=== PATIENT | male | born 1990 | race Caucasian/White ===

== ENCOUNTER 2019-11-11 03:14 | Emergency (ER) | payer MEDICARE, MEDICAID, SELFPAY ==
[2019-11-11 03:22] VITALS: BP 144/95; PULSE 105; RESP 18; TEMP 36.4; O2SAT 97; BMI 33.3
--- NOTE | 2019-11-11 03:27 | USR_ITS ---
PROCEDURE INFORMATION: Exam: US Scrotum Exam date and time: 11/11/2019 3:28 AM Age: 29 years old Clinical indication: Scrotum pain; Patient HX: Woke up with pain. TECHNIQUE: Imaging protocol: Real-time ultrasound of the scrotum and contents with color Doppler and image documentation. COMPARISON: US Testicular [id number] 02/18/2019 1:51 PM FINDINGS: Right testicle: Right testis measures 4.2 x 1.8 x 2.9 cm. Vascular flow is demonstrated within the right testis with color Doppler and duplex waveform sonography. PSV 7.5 cm/s, RI 0.46. Left testicle: The left testis measures 4.4 x 1.8 x 2.8 cm. Vascular flow is demonstrated within the left testis with color Doppler and duplex waveform sonography. PSV 9.6 cm/s RI 0.62. Epididymides: Normal. Scrotum: Tiny amount of anechoic material is seen adjacent to the left testis compatible with a tiny hydrocele. There is mild bilateral scrotal wall thickening seen left more prominent than right. US/US scrotum [id number] IMPRESSION: 1. Mild scrotal wall thickening, left slightly more prominent than right 2. Tiny left hydrocele 3. Otherwise normal bilateral scrotal sonography.
--- NOTE | 2019-11-11 03:27 | CTR_ITS ---
PROCEDURE INFORMATION: Exam: CT Abdomen And Pelvis Without Contrast Exam date and time: 11/11/2019 3:28 AM Age: 29 years old Clinical indication: Abdominal pain; Localized; Left lower quadrant (llq); Additional info: Flank/abdominal pain TECHNIQUE: Imaging protocol: Computed tomography of the abdomen and pelvis without contrast. Radiation optimization: All CT scans at this facility use at least one of these dose optimization techniques: automated exposure control; mA and/or kV adjustment per patient size (includes targeted exams where dose is matched to clinical indication); or iterative reconstruction. COMPARISON: CT abdomen pelvis w con* [id number] 06/30/2017 1:11 AM RADIATION DOSE METRICS: Total DLP: 986.29 mGy-cm FINDINGS: Liver: Normal. No mass. Gallbladder and bile ducts: Normal. No calcified stones. No ductal dilation. Pancreas: Normal. No ductal dilation. Spleen: Normal. No splenomegaly. Adrenals: Normal. No mass. Kidneys and ureters: There is some subtle haziness seen along the serosal margin the left ureter and there is mild prominence of the left ureter seen. There is no evidence for obstructing ureteral calculi. However, there is a 2 mm calcifications seen in the dependent portion the bladder seen on right. This may represent recently passed left ureteral calculus. Stomach and bowel: There are nondilated loops of small bowel present containing fluid and air fluid levels, findings could represent mild ileus. Appendix: The appendix is visualized and is normal in configuration. Intraperitoneal space: Unremarkable. No free air. No significant fluid collection. Vasculature: Unremarkable. No abdominal aortic aneurysm. Lymph nodes: Unremarkable. No enlarged lymph nodes. Bladder: See Kidneys and ureters finding. Reproductive: Unremarkable as visualized. Bones/joints: Unremarkable. No acute fracture. Soft tissues: Unremarkable. CT/CT kidney stone [id number] IMPRESSION: 1. Probable recently passed 2 mm left ureteral calculus now seen within the urinary bladder on the right. 2. Nondilated small bowel loops containing fluid and air fluid levels could represent mild ileus. Radiation Dose CTDIVOL = (mGy): DLP = 986.29 (mGy-cm)
--- NOTE | 2019-11-11 04:03 | ED_ITS ---
HPI - Abdominal Pain General: Chief Complaint: Abdominal Pain Stated Complaint: lower abd pain Time Seen by Provider: 11/11/19 03:24 Source: patient Mode of arrival: ambulatory Limitations: no limitations History of Present Illness: HPI narrative: Virgilio is a 29-year-old male who comes in complaining of left-sided abdominal pain, left flank pain and left testicular pain. Patient states he is never had pain like this before. Pain was abrupt in onset and is described as sharp. Patient states it feels like he needs to urinate but cannot. Patient denies any fevers, chills, nausea, vomiting or back pain. Patient denies having anything similar in the past and he is unaware of anything that makes his symptoms better or worse. He is not tried anything at home for this. Associated Symptoms: Denies chills, coffee ground emesis, constipation, GI cramping, diarrhea, dysuria, fever(s), heartburn, hematochezia, hematuria, hematemesis, melena, nausea, syncope and vomiting Review of Systems Const: Denies: fever(s), chills, body aches, fatigue, malaise or diaphoresis Eyes: Denies: change in vision, blurry vision, blind spots or photophobia ENMT: Denies: throat pain, odynophagia, hoarseness, swelling of lips/tongue, ear or mastoid pain, ear discharge, change in hearing or nasal discharge Card: Denies: chest pain, palpitations, irregular heart rhythm, edema, lightheadedness, syncope, pre-syncope, dyspnea on exertion or orthopnea Resp: Denies: dyspnea, productive cough, non-productive cough, wheezing, hemoptysis or chest congestion GI: Reports: abdominal pain; Denies: nausea, vomiting, hematemesis, coffee ground emesis, heartburn, diarrhea, constipation, GI cramping, hematochezia or melena : Reports: flank pain; Denies: dysuria, urinary frequency, urinary urgency or hematuria Musc: Denies: neck pain, back pain, extremity pain, extremity swelling, joint pain, joint swelling, joint redness, joint warmth or joint stiffness Skin/Breast: Denies: rash, pruritus, erythema, skin tenderness or jaundice Neuro: Denies: headache(s), numbness in extremities, weakness in extremities, sensory changes, lack of coordination, difficulty walking, dizziness, vertigo, confusion or Slurred speech present Deny/Lymph: Denies: easy bruising, easy bleeding, petechiae, purpura or enlarged lymph nodes All/Imm: Denies: urticaria, throat swelling, tongue swelling, facial swelling or acute wheezing PFSH ED PFSH: Medical History No pertinent past medical history Surgical History No history of previous surgery Social History Smoking and tobacco status: current every day smoker Physical Exam Const: COMMON NORMALS: no acute distress, patient oriented x3, no limitations, healthy appearing and well nourished GENERAL APPEARANCE: cooperative, well kempt and well developed HENMT: COMMON NORMALS: normocephalic, atraumatic, hearing grossly normal bilaterally, external ears normal, EAC's normal, Normal external nose present and moist oral mucous membranes HEAD & SCALP: normocephalic and atraumatic NOSE: Normal external nose present and Normal nares present EXTERNAL EAR: Yes external ears normal EXTERNAL AUDITORY CANAL: EAC's normal MOUTH: Normal oral and palatal mucosa present, lip normal and tongue normal Eye: COMMON NORMALS: Equal, round and reactive pupils present, EOMs intact bilaterally, conjunctivae normal and no scleral icterus GENERAL EYE: appearance normal, both eyes and all related structures ALIGNMENT: Yes alignment normal PERIORBITAL: periorbital findings normal EYELID: eyelids normal CONJUNCTIVA: Yes conjunctivae normal SCLERA: sclerae normal PUPIL: Yes Equal, round and reactive pupils present Neck/C-Spine: COMMON NORMALS: full ROM, no lymphadenopathy, supple, no meninge al signs and no JVD GENERAL: Yes normal visual inspection and Yes trachea midline Chest: COMMONS NORMALS: normal inspection of the chest and normal palpation of entire chest wall Resp: COMMON NORMALS: normal respiratory effort, No retractions, No use of accessory muscles and clear to auscultation bilaterally EFFORT & INSPECTION: Yes able to speak in complete sentences and Yes symmetric chest movement AUSCULTATION: clear to auscultation bilaterally, no crackles, no rales, no rhonchi and no wheezes Cardio: COMMON NORMALS: no JVD, regular rate, regular rhythm, S1 normal heart sound present, S2 normal heart sound present, No gallops present (Cardio), No clicks present (Cardio), No murmurs present (Cardio) and No rub (Cardio) RATE: regular rate RHYTHM: regular rhythm HEART SOUNDS: S1 normal heart sound present and S2 normal heart sound present GI: COMMON NORMALS: Soft to palpation and No hepatosplenomegaly present PALPATION: Yes Soft to palpation, Yes Tenderness to palpation present (GI) Details: LLQ, No Guarding due to palpation present (GI), No Rigid due to palpation, Yes No hepatosplenomegaly present, No Hernia present, No Palpable mass present and No Pulsatile mass present : COMMON NORMALS: Yes no CVA tenderness BLADDER/KIDNEY EXAM: Yes no CVA tenderness Back/Pelvis: COMMON NORMALS: no CVA tenderness, thoracic and lumbar spine normal to inspection, no thoracic nor lumbar tenderness and thoraco-lumbar ROM normal Extremity: COMMON NORMALS: normal to inspection, full ROM, capillary refill normal, no joint enlargement, no clubbing, cyanosis or edema and no calf tenderness Neuro: COMMON NORMALS: patient oriented x3, CN's II-XII intact bilaterally, moves all extremities, no focal motor deficits and no sensory deficits noted MENINGEAL SIGNS: Yes no meningeal signs SPEECH: speech normal Psych: COMMON NORMALS: mental status grossly normal, Normal thought process present, cooperative, normal affect, speech normal and activity/motor behavior normal APPEARANCE: Yes well kempt SPEECH: Yes normal speech THOUGHT PROCESS: Normal thought process present Skin: COMMON NORMALS: no rashes or lesions noted, turgor normal, no jaundice, no petechiae and no mottling GENERAL SKIN EXAM: no rashes or lesions noted and turgor normal Course Vital Signs: Vital signs: Vital Signs Temperature 97.6 F 11/11/19 03:22 Pulse Rate 105 H 11/11/19 03:22 Respiratory Rate 16 11/11/19 04:11 Blood Pressure 144/95 11/11/19 03:22 Pulse Oximetry 97 11/11/19 03:22 MDM - Abdominal Pain MDM Narrative: Medical decision making narrative: Mr. Maurice is a 29-year-old male comes in with left-sided flank pain. Ultrasound of his testicles is unremarkable. There is no torsion. The skin thickness seen on ultrasound is not appreciated clinically. His testicle exam was unremarkable. I believe all his pain can be explained by the kidney stone present in the bladder with previous changes to the ureter on the left. The patient is feeling much better at this time and is ready to go home. Differential Diagnosis: Differential diagnosis abdominal pain: Likely abdominal pain, calculus of kidney, diverticulitis, gastroenteritis and small bowel obstruction Lab Data: Attestation: I reviewed the patient's lab results. Labs: Lab Results 11/11/19 11/11/19 11/11/19 Range/Units 03:40 04:10 04:10 WBC 7.8 (4.0-10.0) 10^3/ uL RBC 4.71 (4.1-5.3) 10^6/u L Hgb 14.6 (11.7-16.6) g/dL Hct 44.1 (42.0-52.0) % MCV 93.6 (80-94) fL MCH 31.0 (28.0-34.0) pg MCHC 33.1 (30.0-36.0) g/dL RDW 12.4 (12.1-15.1) % Plt Count 178 (130-400) 10^3/c mm MPV 10.9 H (7.4-10.4) fL Neut % (Auto) 62.4 % Lymph % (Auto) 28.5 % [place] % (Auto) 5.2 % Eos % (Auto) 3.4 % Baso % (Auto) 0.4 % Neut # (Auto) 4.9 (1.8-7.7) 10^3/u L Lymph # (Auto) 2.2 (0.8-4.8) 10^3/u L [place] # (Auto) 0.4 (0.2-0.9) 10^3/u L Eos # (Auto) 0.3 (0.0-0.8) 10^3/u L Baso # (Auto) 0.0 (0.0-0.1) 10^3/u L Nucleated RBC % (a uto) 0 % Nucleated RBCs # 0.0 /100WBC Sodium 142 (136-145) mmol/L Potassium 3.2 L (3.5-5.1) mmol/L Chloride 105 (98-107) mmol/L Carbon Dioxide 26 (22-29) mmol/L Anion Gap 14.2 (5-19) BUN 19 (6-20) mg/dL Creatinine 0.8 (0.7-1.2) mg/dL GFR Calculation 116.0 (90-130) mL/min Glucose 148 H (65-115) mg/dL Calculated Osmolal ity 293 (285-295) mOsm/k g Calcium 8.9 (8.5-10.5) mg/dL Magnesium (1.7-2.3) mg/dL Total Bilirubin 0.4 (0.15-1.2) mg/dL AST 21 (0-40) U/L ALT 36 (0-41) U/L Alkaline Phosphata se 40 (40-130) IU/L Total Protein 6.2 L (6.6-8.7) g/dL Albumin 4.5 (3.5-5.2) g/dL Globulin 1.7 (1.3-4.6) g/dL Lipase 22 (13-60) U/L Urine Color Yellow (Yellow) Urine Appearance Clear (CLEAR) Urine pH 6 (5-7) Ur Specific Gravit y 1.020 (1.005-1.030) Urine Protein Neg (Negative) Urine Glucose (UA) Norm (Normal) Urine Ketones Negative (Negative) Urine Blood 2+ H (Negative) Urine Nitrate Negative (Negative) Urine Bilirubin Neg (NEGATIVE) Urine Urobilinogen Norm (Negative) mg/dL Ur Leukocyte Julisa ase Negative (Negative) Urine RBC 5-10 H (0-2) /hpf Urine WBC 0-4 H (0-5) /hpf Ur Squamous Epith Cells Rare (0-5) Urine Bacteria Trace (NONE) Urine Mucus Trace 11/11/19 Range/Units 04:10 WBC (4.0-10.0) 10^3/ uL RBC (4.1-5.3) 10^6/u L Hgb (11.7-16.6) g/dL Hct (42.0-52.0) % MCV (80-94) fL MCH (28.0-34.0) pg MCHC (30.0-36.0) g/dL RDW (12.1-15.1) % Plt Count (130-400) 10^3/c mm MPV (7.4-10.4) fL Neut % (Auto) % Lymph % (Auto) % [place] % (Auto) % Eos % (Auto) % Baso % (Auto) % Neut # (Auto) (1.8-7.7) 10^3/u L Lymph # (Auto) (0.8-4.8) 10^3/u L [place] # (Auto) (0.2-0.9) 10^3/u L Eos # (Auto) (0.0-0.8) 10^3/u L Baso # (Auto) (0.0-0.1) 10^3/u L Nucleated RBC % (a uto) % Nucleated RBCs # /100WBC Sodium (136-145) mmol/L Potassium (3.5-5.1) mmol/L Chloride (98-107) mmol/L Carbon Dioxide (22-29) mmol/L Anion Gap (5-19) BUN (6-20) mg/dL Creatinine (0.7-1.2) mg/dL GFR Calculation (90-130) mL/min Glucose (65-115) mg/dL Calculated Osmolal ity (285-295) mOsm/k g Calcium (8.5-10.5) mg/dL Magnesium 2.1 (1.7-2.3) mg/dL Total Bilirubin (0.15-1.2) mg/dL AST (0-40) U/L ALT (0-41) U/L Alkaline Phosphata se (40-130) IU/L Total Protein (6.6-8.7) g/dL Albumin (3.5-5.2) g/dL Globulin (1.3-4.6) g/dL Lipase (13-60) U/L Urine Color (Yellow) Urine Appearance (CLEAR) Urine pH (5-7) Ur Specific Gravit y (1.005-1.030) Urine Protein (Negative) Urine Glucose (UA) (Normal) Urine Ketones (Negative) Urine Blood (Negative) Urine Nitrate (Negative) Urine Bilirubin (NEGATIVE) Urine Urobilinogen (Negative) mg/dL Ur Leukocyte Julisa ase (Negative) Urine RBC (0-2) /hpf Urine WBC (0-5) /hpf Ur Squamous Epith Cells (0-5) Urine Bacteria (NONE) Urine Mucus Imaging Data ^: CT Abd/Pel: Radiologist's impression: [place] [address] [address] [address] Scan Report Signed Patient: Virgilio Maurice Unit #: [id number] : 1990 Age/Sex: 29 / M ADM Date: 11/11/19 Loc: ER Room/Bed: Attending Dr: Ordering Provider/Ordering MD: Destiney Rg DO Date of Service: 11/11/19 Procedure(s): CT kidney stone [id number] Accession Number(s): [id number] Report Number: [id number] PROCEDURE INFORMATION: Exam: CT Abdomen And Pelvis Without Contrast Exam date and time: 11/11/2019 3:28 AM Age: 29 years old Clinical indication: Abdominal pain; Localized; Left lower quadrant (llq); Additional info: Flank/abdominal pain TECHNIQUE: Imaging protocol: Computed tomography of the abdomen and pelvis without contrast. Radiation optimization: All CT scans at this facility use at least one of these dose optimization techniques: automated exposure control; mA and/or kV adjustment per patient size (includes targeted exams where dose is matched to clinical indication); or iterative reconstruction. COMPARISON: CT abdomen pelvis w con* [id number] 06/30/2017 1:11 AM RADIATION DOSE METRICS: Total DLP: 986.29 mGy-cm FINDINGS: Liver: Normal. No mass. Gallbladder and bile ducts: Normal. No calcified stones. No ductal dilation. Pancreas: Normal. No ductal dilation. Spleen: Normal. No splenomegaly. Adrenals: Normal. No mass. Kidneys and ureters: There is some subtle haziness seen along the serosal margin the left ureter and there is mild prominence of the left ureter seen. There is no evidence for obstructing ureteral calculi. However, there is a 2 mm calcifications seen in the dependent portion the bladder seen on right. This may represent recently passed left ureteral calculus. Stomach and bowel: There are nondilated loops of small bowel present containing fluid and air fluid levels, findings could represent mild ileus. Appendix: The appendix is visualized and is normal in configuration. Intraperitoneal space: Unremarkable. No free air. No significant fluid collection. Vasculature: Unremarkable. No abdominal aortic aneurysm. Lymph nodes: Unremarkable. No enlarged lymph nodes. Bladder: See Kidneys and ureters finding. Reproductive: Unremarkable as visualized. Bones/joints: Unremarkable. No acute fracture. Soft tissues: Unremarkable. CT/CT kidney stone [id number] IMPRESSION: 1. Probable recently passed 2 mm left ureteral calculus now seen within the urinary bladder on the right. 2. Nondilated small bowel loops containing fluid and air fluid levels could represent mild ileus. Radiation Dose CTDIVOL = (mGy): DLP = 986.29 (mGy-cm) Dictated By: Chandana Capellan MD Signed By: Chandana Capellan MD Signed Date/Time: 11/11/19425 DD/ 4 Ultrasound Testicles: Radiologist's impression: [address] [address] Ultrasound Report Signed Patient: Virgilio Maurice Unit #: [id number] : 1990 Age/Sex: 29 / M ADM Date: 11/11/19 Loc: ER Room/Bed: Attending Dr: Ordering Provider/Ordering MD: Destiney Rg DO Date of Service: 11/11/19 Procedure(s): US scrotum [id number] Accession Number(s): [id number] Report Number: [id number] PROCEDURE INFORMATION: Exam: US Scrotum Exam date and time: 11/11/2019 3:28 AM Age: 29 years old Clinical indication: Scrotum pain; Patient HX: Woke up with pain. TECHNIQUE: Imaging protocol: Real-time ultrasound of the scrotum and contents with color Doppler and image documentation. COMPARISON: US Testicular [id number] 02/18/2019 1:51 PM FINDINGS: Right testicle: Right testis measures 4.2 x 1.8 x 2.9 cm. Vascular flow is demonstrated within the right testis with color Doppler and duplex waveform sonography. PSV 7.5 cm/s, RI 0.46. Left testicle: The left testis measures 4.4 x 1.8 x 2.8 cm. Vascular flow is demonstrated within the left testis with color Doppler and duplex waveform sonography. PSV 9.6 cm/s RI 0.62. Epididymides: Normal. Scrotum: Tiny amount of anechoic material is seen adjacent to the left testis compatible with a tiny hydrocele. There is mild bilateral scrotal wall thickening seen left more prominent than right. US/US scrotum [id number] IMPRESSION: 1. Mild scrotal wall thickening, left slightly more prominent than right 2. Tiny left hydrocele 3. Otherwise normal bilateral scrotal sonography. Dictated By: Chandana Capellan MD Signed By: Chandana Capellan MD Signed Date/Time: 11/11/19421 DD/ 1 Discharge Plan Discharge Patient Disposition: Home, Self-Care Clinical Impression: Left ureteral stone Condition: Stable Discharge Orders: Discharge Order (Routine); Ordered 11/11/19 Ordered By: Destiney Rg Referrals: Rocael Muller MD [Physician] - 1-3 days Discharge Diet: Advance as tolerated Discharge Activity: Increase activity as tolerated Patient Instructions: Kidney Stones (ED), How to Strain Your Urine (ED) Activity Restrictions/Additional Instructions: Please return to the ER immediately for any of the signs or symptoms listed on your discharge instruction sheets, worsening/changing of your symptoms, you are not getting better as quickly as expected, or for ANY other cause or concerns. Coding Level of Care Code ED Inspector [employer] for [employer]g Fwd Exam Comprehensive
[2019-11-11 04:11] VITALS: RESP 16
[2019-11-11] MEDS: morphine 4 mg/mL SDV 1 mL IVP (04:11)
[2019-11-11] MEDS: ondansetron 2 mg/ML SDV 2 mL 4 MG IVP (04:12)
[2019-11-11 04:15] LABS: Basophils % 0.4 %; Eosinophils # 0.3 10^3/uL (0.0-0.8); Eosinophils % 3.4 %; Hematocrit 44.1 % (42.0-52.0); Hemoglobin 14.6 g/dL (11.7-16.6); Lymphocytes # 2.2 10^3/uL (0.8-4.8); Lymphocytes % 28.5 %; Mean Corpuscular HGB Conc 33.1 g/dL (30.0-36.0); Mean Corpuscular Volume 93.6 fL (80-94); Mean Platelet Volume 10.9 fL (7.4-10.4); Monocytes # 0.4 10^3/uL (0.2-0.9); Monocytes % 5.2 %; Neutrophils # 4.9 10^3/uL (1.8-7.7); Neutrophils % 62.4 %; Nucleated Red Blood Cells % 0 %; Platelet Count 178 10^3/cmm (130-400); Red Blood Count 4.71 10^6/uL (4.1-5.3); Red Cell Distribution Width 12.4 % (12.1-15.1); White Blood Count 7.8 10^3/uL (4.0-10.0)
[2019-11-11 04:30] LABS: Alanine Aminotransferase 36 U/L (0-41); Albumin Level 4.5 g/dL (3.5-5.2); Alkaline Phosphatase 40 IU/L (40-130); Anion Gap 14.2 (5-19); Aspartate Amino Transferase 21 U/L (0-40); Blood Urea Nitrogen 19 mg/dL (6-20); Calcium 8.9 mg/dL (8.5-10.5); Carbon Dioxide 26 mmol/L (22-29); Chloride 105 mmol/L (98-107); Globulin 1.7 g/dL (1.3-4.6); Glucose 148 mg/dL (65-115); Lipase 22 U/L (13-60); Osmolality Calculated 293 mOsm/kg (285-295); Potassium 3.2 mmol/L (3.5-5.1); Sodium 142 mmol/L (136-145); Total Bilirubin 0.4 mg/dL (0.15-1.2); Total Protein 6.2 g/dL (6.6-8.7)
[2019-11-11 04:51] LABS: Protein Urine Neg (Negative); Urine Appearance Clear (CLEAR); Urine Color Yellow (Yellow); pH Urine 6 (5-7)
[2019-11-11 04:52] LABS: Bacteria Urine TRACE; Bilirubin Urine Neg (NEGATIVE); Blood Urine 2+ (Negative); Glucose Urine UA Norm (Normal); Ketones Urine Negative (Negative); Leukocyte Esterase Urine Negative (Negative); Mucus Urine TRACE; Nitrate Urine Negative (Negative); Squamous Epithelial Cell Urine RARE (0-5); Urobilinogen Urine Norm (Negative); WBC Urine 0-4 /hpf (0-5)
[2019-11-11 04:53] LABS: Add Urine Culture? No
[2019-11-11] MEDS: ketorolac 30 mg/mL INJ 10 MG IVP (04:53)
[2019-11-11] MEDS: lactated ringers 1,000 ML 150 ML IV (04:56)
[2019-11-11 05:01] LABS: Magnesium 2.1 mg/dL (1.7-2.3)
[2019-11-11 05:22] VITALS: RESP 16
--- NOTE | 2019-11-14 10:56 | DCPLANNER ---
marketing strategy manager had message to schedule a follow up appointment for patient with Dr. Muller. marketing strategy manager called the office of Dr. Muller, spoke with Fanta. marketing strategy manager was told that patients information would be printed and reviewed.
--- NOTE | 2019-11-15 08:38 | DCPLANNER ---
Patient had an appointment scheduled for 11.12.[address] Muller, patient did attend the appointment.
== END 2019-11-11 05:22 | disposition home or self-care (01) ==
PROVIDERS: Emergency Provider Emergency Medicine
DX: N20.1 Calculus of ureter (principal); F17.210 Nicotine dependence, cigarettes, uncomplicated
CPT/HCPCS: 12345; 74176; 76870; 80053; 81001; 83690; 83735; 85025; 96365; 96366; 96375; 99282; 99284; A9270; J1885; J2270; J2405

== ENCOUNTER 2019-11-12 12:03 | Outpatient (CLI) | payer MEDICARE, MEDICAID, SELFPAY ==
--- NOTE | 2019-11-12 12:30 | XR_ITS ---
WS: [id number] XR KUB [id number] REASON FOR EXAM: URETERAL STONE FINDINGS: Considerable fecal stasis is noted throughout the colon. [place] both kidneys show essential ly normal appearance a definite stone is not identified. The region of the ureters and bladder show no evidence to suggest stone. XR/XR KUB 56108 IMPRESSION: Fecal stasis.
== END 2019-11-12 12:04 | disposition home or self-care (01) ==
PROVIDERS: Visit Provider Nurse Practitioner Family
DX: N20.1 Calculus of ureter (principal); K56.41 Fecal impaction
CPT/HCPCS: 74018; 81001

== ENCOUNTER 2020-01-25 19:40 | Emergency (ER) | payer MEDICARE, MEDICAID, SELFPAY ==
[2020-01-25 20:02] VITALS: BP 139/96; PULSE 102; RESP 20; TEMP 36.8; O2SAT 98; BMI 23.3
--- NOTE | 2020-01-25 20:19 | PC.NURSE ---
Patient taken straight to decon room for decontamination treatment, once completed patient was placed in gown and taken to room for examination.
[2020-01-25 20:20] VITALS: RESP 18
[2020-01-25] MEDS: ondansetron 2 mg/ML SDV 2 mL 4 MG IVP (20:30)
[2020-01-25] MEDS: ketorolac 30 mg/mL INJ IVP (20:35)
[2020-01-25 20:40] VITALS: RESP 22; O2SAT 97
[2020-01-25] MEDS: morphine 4 mg/mL SDV 1 mL IVP (20:40)
[2020-01-25] MEDS: bacitracin ointment Pkt 1 EACH TOPICAL ×2 (20:44→20:55)
[2020-01-25 21:20] VITALS: BP 120/70; PULSE 88; RESP 18; O2SAT 98
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
[2020-01-25 21:39] VITALS: BP 120/70; PULSE 88; RESP 18; O2SAT 98
== END 2020-01-25 21:40 | disposition home or self-care (01) ==
PROVIDERS: Emergency Provider Family Medicine
DX: T21.20XA Burn of second degree of trunk, unspecified site, initial encounter (principal); X16.XXXA Contact with hot heating appliances, radiators and pipes, initial encounter; F17.210 Nicotine dependence, cigarettes, uncomplicated
CPT/HCPCS: 12345; 96374; 96375; 99282; 99283; J1885; J2270; J2405

== ENCOUNTER 2020-02-19 07:42 | Emergency (ER) | payer MEDICARE, MEDICAID, SELFPAY ==
[2020-02-19 07:45] VITALS: BP 116/83; PULSE 83; RESP 17; TEMP 36.9; O2SAT 99; BMI 21.6
--- NOTE | 2020-02-19 08:23 | ED_ITS ---
HPI - Skin/Abscess/Foreign Bdy General: Chief complaint: Skin/Abscess/Foreign Body Stated complaint: bite on r leg Time Seen by Provider: 02/19/20 07:45 History of Present Illness: HPI narrative: 30-year-old male presents to the emergency department with complaints of possible insect bite/spider bite to the right posterior thigh x4 days. He reports worsening symptoms, pain with ambulation. Denies fever chills. complaint: abscess/boil Onset (ago): day(s) (3-4) Tetanus up to date: yes Location: [facility] Severity: moderate Severity scale (1-10): 5 Quality: burning, aching and dull Pain Consistency: intermittent Relieving factors: rest Exacerbating factors: movement Context: none Associated symptoms: Reports no associated symptoms; Deny chills, fever(s), nausea or vomiting Treatments prior to arrival: none Review of Systems General: Reports: 10 or more systems reviewed and unremarkable except in HPI and below Const: Denies: fever(s), chills or diaphoresis Eyes: Denies: blurry vision or eye redness ENMT: Denies: throat pain, dental pain or disequilibrium Card: Denies: chest pain, palpitations or irregular heart rhythm Resp: Denies: dyspnea, productive cough, non-productive cough or wheezing GI: Denies: abdominal pain, nausea or vomiting : Denies: dysuria Musc: Reports: extremity pain (Right posterior thigh); Denies: back pain, muscle cramps or muscle weakness Skin/Breast: Reports: erythema (Right thigh), skin pain, skin tenderness (Right thigh) and changes in skin color (Wound to the right thigh); Denies: rash or pruritus Neuro: Denies: headache(s), weakness in extremities or behavioral changes Psych: Denies: anxiety or depression Deny/Lymph: Denies: easy bruising PFSH ED PFSH: Medical History (Updated 02/19/20 @ 08:23 by ARMEN Stacy) No pertinent past medical history Surgical History No history of previous surgery Family History Family/Other Cancer stomach Social History Smoking and tobacco status: current every day smoker Alcohol intake: current Alcohol intake frequency: few times a week Marital status: Life Partner Current occupational status: unemployed History of recent travel: No Physical Exam Const: COMMON NORMALS: no acute distress, patient oriented x3, healthy appearing and alert GENERAL APPEARANCE: cooperative and well hydrated HENMT: COMMON NORMALS: normocephalic, Normal external nose present and moist oral mucous membranes HEAD & SCALP: normocephalic NOSE: Normal external nose present Eye: COMMON NORMALS: Equal, round and reactive pupils present and EOMs intact bilaterally GENERAL EYE: appearance normal, both eyes and all related structures PUPIL: Yes Equal, round and reactive pupils present Neck/C-Spine: COMMON NORMALS: full ROM and no lymphadenopathy GENERAL: Yes normal visual inspection and Yes trachea midline CERVICAL SPINE: Yes cervical ROM normal Lymph: LYMPHATIC: no lymphadenopathy noted Chest: COMMONS NORMALS: normal inspection of the chest Resp: COMMON NORMALS: normal respiratory effort and clear to auscultation bilaterally AUSCULTATION: clear to auscultation bilaterally Cardio: COMMON NORMALS: regular rhythm, S1 normal heart sound present, S2 normal heart sound present and Peripheral pulses 2+ throughout RHYTHM: regular rhythm HEART SOUNDS: S1 normal heart sound present and S2 normal heart sound present PERIPHERAL PULSES: Peripheral pulses 2+ throughout GI: COMMON NORMALS: Soft to palpation and non-tender INSPECTION: Yes normal to inspection PALPATION: Yes Soft to palpation : COMMON NORMALS: Yes no CVA tenderness BLADDER/KIDNEY EXAM: Yes no CVA t enderness Back/Pelvis: COMMON NORMALS: no CVA tenderness and thoracic and lumbar spine normal to inspection Extremity: COMMON NORMALS: normal to inspection and capillary refill normal GENERAL: Yes normal exam except as noted RIGHT LOWER EXTREMITY: Yes upper leg (Abscess right posterior thigh tenderness localized to the area) EXTREMITY IMAGE (BACK): 1. 2 cm x 2 cm indurated erythematous area, fluctuant, 4 cm x 4 cm area of erythema surrounding, flat, tender to the touch, abscess Neuro: COMMON NORMALS: patient oriented x3 and no focal motor deficits SENSORIUM/ORIENTATION: Yes alert Psych: COMMON NORMALS: mental status grossly normal, Normal thought process present and cooperative ACTIVITY/MOTOR BEHAVIOR: Yes appropriate eye contact THOUGHT PROCESS: Normal thought process present Skin: COMMON NORMALS: no rashes or lesions noted and turgor normal GENERAL SKIN EXAM: no rashes or lesions noted and turgor normal Procedures Abscess I/D Site: lower extremity (Right posterior thigh -Betadine scrub as prep) Side (if applicable): right Local Anesthetic: lidocaine 1% and with epi Amount of anesthesia used (mL): 7 Technique: incised with #11 blade (moderate amount of purulent exudate expressed from the area) Irrigation: Yes Packing used?: none Complications: pain Course ED course: 30-year-old male patient presents to the emergency department with abscess of the right posterior thigh, incision and drainage of the area completed with expression of purulent drainage. Presume MRSA infection. Abscess culture and sensitivity with Gram stain obtained and pending. Patient was advised no [place] water, bath water or river water until area has completely healed. Drainage encouraged from the area, advised to keep covered with Band- Aid until healed. His request work note. Patient offer 2 days, advised to keep leg elevated with compresses as needed for pain. Vital Signs: Vital signs: Vital Signs Temperature 98.4 F 02/19/20 07:45 Pulse Rate 83 02/19/20 07:45 Respiratory Rate 17 02/19/20 07:45 Blood Pressure 116/83 02/19/20 07:45 Pulse Oximetry 99 02/19/20 07:45 Discharge Plan Discharge Patient Disposition: Home Clinical Impression: MRSA cellulitis Abscess of skin or subcutaneous tissue Qualifiers: Site of cutaneous abscess: extremity Site of cutaneous abscess of extremity: lower extremity Laterality: right Qualified Code(s): L02.415 - Cutaneous abscess of right lower limb Condition: Stable Prescriptions: New Bactrim DS 800-160 mg tablet 1 tab PO BID 7 Days Qty: 14 RF: 0 ibuprofen 800 mg tablet 800 mg PO TID PRN (Reason: pain) Qty: 20 RF: 0 Discontinued naproxen sodium [Aleve] 220 mg Tablet 220 mg PO BID PRN (Reason: Pain) RF: 0 bacitracin 500 unit/gram ointment 1 applic TOPICAL DAILY Qty: 30 RF: 0 No Action [place] 5-325 mg tablet 1 tab PO Q6H PRN (Reason: pain) Qty: 20 RF: 0 Discharge Orders: Discharge Order (Routine); Ordered 02/19/20 Ordered By: Cassy Soliman Discharge Diet: Usual diet Discharge Activity: Resume usual activity Patient Instructions: Methicillin Resistant Staphylococcus Aureus (ED), Abscess Incision and Drainage (ED) Activity Restrictions/Additional Instructions: Apply cool compresses as needed to the affected area to help with pain Take antibiotics until all gone, take medication with meals to avoid stomach upset Do not take any [id number] medication with exception of Tylenol as needed for pain while taking ibuprofen Increase fluids Follow-up with your doctor in 3 to 4 days if no improvement If worsening symptoms such as fever chills nausea vomiting or streaking occurs to the leg, return to the emergency department Stand Alone Forms: Work/School Release Coding Level of Care Code ED Mysql Database Administrator for Bj Anna
[2020-02-19 08:35] VITALS: BP 111/72; PULSE 88; RESP 18; TEMP 37.2; O2SAT 97
== END 2020-02-19 08:40 | disposition home or self-care (01) ==
PROVIDERS: Emergency Provider Nurse Practitioner Family
DX: L02.415 Cutaneous abscess of right lower limb (principal); B95.62 Methicillin resistant Staphylococcus aureus infection as the cause of diseases classified elsewhere; L03.115 Cellulitis of right lower limb
CPT/HCPCS: 10060; 12345; 87070; 87075; 87077; 87186; 87205; 99282; 99283

== ENCOUNTER 2020-07-03 23:35 | Emergency (ER) | payer MEDICARE, MEDICAID, SELFPAY ==
[2020-07-03 23:54] VITALS: BP 107/72; PULSE 86; RESP 16; TEMP 36.8; O2SAT 97; BMI 23.3
[2020-07-03 23:59] VITALS: O2SAT 97
--- NOTE | 2020-07-04 00:05 | W.ED.COVID ---
HPI - COVID General: Chief Complaint: COVID symptoms Stated Complaint: covid symptoms/cough Time Seen by Provider: 07/03/20 23:39 Source: patient Mode of arrival: ambulatory Limitations: no limitations Triage information: Has fever, cough or shortness of breath. Exposure to COVID + person last 14 days History of Present Illness: HPI Narrative: 30-year-old male patient presents to the emergency department [facility] with 5-day onset of cough congestion. He reports is exposed to a positive Covid customer last week, 5 to 7 days prior to onset of symptoms. He reports coughing up clear sputum. He denies chest pain, shortness of breath. He reports has not taken anything for the cough. He denies fever. He reports continued cough. MD complaint: reported COVID exposure Prior covid testing: no COVID 19 common symptoms: positive chills, cough, productive cough (clear), fatigue, headache(s), throat pain and nasal congestion; negative fever(s), dyspnea, body aches, nausea, vomiting or diarrhea COVID 19 other sytmptoms: negative chest pain or confusion Onset (ago): day(s) (5) Severity: mild Treatment prior to arrival: none COVID Results: Nasal/Oral Coronavirus 2019 PCR Pending 07/04/20 00:20 07/04/20 Review of Systems General: Reports: 10 or more systems reviewed and unremarkable except in HPI and below Const: Reports: chills, fatigue and malaise; Denies: fever(s), body aches, change in appetite, night sweats or diaphoresis Eyes: Denies: change in vision, blurry vision, eye discomfort or eye redness ENMT: Reports: throat pain, nasal discharge and nasal congestion; Denies: mouth pain, halitosis, ear or mastoid pain or post nasal drip Card: Denies: chest pain, palpitations, irregular heart rhythm, swelling of feet/ankles, lightheadedness, pre-syncope, dyspnea on exertion or orthopnea Resp: Reports: productive cough (clear) and chest congestion; Denies: dyspnea, wheezing or hemoptysis GI: Denies: abdominal pain, nausea, vomiting, hematemesis, diarrhea or constipation : Denies: dysuria Musc: Denies: neck pain, back pain, extremity pain, muscle cramps or muscle weakness Skin/Breast: Denies: rash or pruritus Neuro: Reports: headache(s); Denies: numbness in extremities, sensory changes, difficulty walking, frequent falls, vertigo or confusion Psych: Denies: anxiety, depression or hopelessness Deny/Lymph: Denies: easy bruising PFSH ED PFSH: Medical History (Updated 07/04/20 @ 00:10 by ARMEN Stacy) No pertinent past medical history Surgical History No history of previous surgery Family History Family/Other Cancer stomach Social History Smoking and tobacco status: current every day smoker Alcohol intake: current Alcohol intake frequency: few times a week Marital status: Life Partner Current occupational status: unemployed History of recent travel: No Physical Exam Const: COMMON NORMALS: no acute distress, patient oriented x3, healthy appearing and alert GENERAL APPEARANCE: cooperative, comfortable and well hydrated HENMT: COMMON NORMALS: normocephalic, Normal external nose present and moist oral mucous membranes HEAD & SCALP: normocephalic NOSE: Normal external nose present Eye: COMMON NORMALS: Equal, round and reactive pupils present and EOMs intact bilaterally GENERAL EYE: appearance normal, both eyes and all related structures PUPIL: Yes Equal, round and reactive pupils present Neck/C-Spine: COMMON NORMALS: full ROM and no lymphadenopathy GENERAL: Yes normal visual inspection and Yes trachea midline CERVICAL SPINE: Yes cervical ROM normal Lymph: LYMPHATIC: no lymphadenopathy noted Chest: COMMONS NORMALS: normal inspection of the chest and normal palpation of entire chest wall CHEST: No localized rib tenderness with anteroposterior compression Resp: COMMON NORMALS: normal respiratory effort, No retractions, No use of accessory muscles and clear to auscultation bilaterally EFFORT & INSPECTION: Yes able to speak in complete sentences, No abnormal respiratory pattern, No respiratory distress, No labored and Yes Actively coughing non-productive and dry AUSCULTATION: clear to auscultation bilaterally Cardio: COMMON NORMALS: regular rate, regular rhythm, S1 normal heart sound present, S2 normal heart sound present and Peripheral pulses 2+ throughout RATE: regular rate RHYTHM: regular rhythm HEART SOUNDS: S1 normal heart sound present and S2 normal heart sound present PERIPHERAL PULSES: Peripheral pulses 2+ throughout GI: COMMON NORMALS: Normal to inspection, nondistended, normoactive bowel sounds present, Soft to palpation and non-tender INSPECTION: Yes normal to inspection PALPATION: Yes Soft to palpation : COMMON NORMALS: Yes no CVA tenderness BLADDER/KIDNEY EXAM: Yes no CVA tenderness Back/Pelvis: COMMON NORMALS: no CVA tenderness and thoracic and lumbar spine normal to inspection Extremity: COMMON NORMALS: normal to inspection and capillary refill normal Neuro: COMMON NORMALS: patient oriented x3 and no focal motor deficits SENSORIUM/ORIENTATION: Yes alert Psych: COMMON NORMALS: mental status grossly normal, Normal thought process present and cooperative ACTIVITY/MOTOR BEHAVIOR: Yes appropriate eye contact THOUGHT PROCESS: Normal thought process present Skin: COMMON NORMALS: no rashes or lesions noted and turgor normal GENERAL SKIN EXAM: no rashes or lesions noted and turgor normal Course Vital Signs: Vital signs: Vital Signs Temperature 98.2 F 07/03/20 23:54 Pulse Rate 86 07/03/20 23:54 Respiratory Rate 16 07/04/20 00:33 Blood Pressure 107/72 07/03/20 23:54 Pulse Oximetry 97 07/03/20 23:59 MDM - COVID COVID Results: Nasal/Oral Coronavirus 2019 PCR Pending 07/04/20 00:20 07/04/20 Discharge Plan Discharge Patient Disposition: Home Clinical Impression: Suspected severe acute respiratory syndrome coronavirus 2 (SARS-CoV-2) infection, Bronchitis, Suspected 2019 novel coronavirus infection Condition: Stable Prescriptions: New azithromycin 250 mg tablet 250 mg PO DAILY 4 Days Qty: 4 RF: 0 benzonatate 200 mg capsule 200 mg PO TID PRN (Reason: cough) Qty: 20 RF: 0 Decadron 6 mg tablet 6 mg PO DAILY Qty: 7 RF: 0 No Action ibuprofen 800 mg tablet 800 mg PO TID PRN (Reason: pain) Qty: 20 RF: 0 [place] 5-325 mg tablet 1 tab PO Q6H PRN (Reason: pain) Qty: 20 RF: 0 Discharge Orders: Discharge ED (Routine); Ordered 07/04/20 Ordered By: Cassy Soliman Discharge Diet: Usual diet Discharge Activity: Limit activity as instructed Patient Instructions: Acute Bronchitis (ED), Viral Syndrome (ED), Acute Cough (ED) Activity Restrictions/Additional Instructions: Take medication as prescribed until all gone, dexamethasone and azithromycin May take Tylenol/ibuprofen as needed for pain/fever Return to the emergency department if you develop chest pain, inability to catch her breath or other concerning symptoms You will need to rest at home, drink lots of fluids to avoid dehydration; you will need to remain in quarantine until results of COVID-19 are known; if positive you will need to continue quarantine; the [facility] will contact you with further instructions Coding Level of Care Code ED Software Quality Test Engineer for Bj Fwisabel Exam Comprehensive
[2020-07-04] MEDS: azithromycin 250 mg Tablet 500 MG PO (00:24)
[2020-07-04] MEDS: benzonatate 100 mg Capsule 200 MG PO (00:24)
[2020-07-04] MEDS: dexamethasone 4 mg Tablet 6 MG PO (00:31)
[2020-07-04 00:33] VITALS: RESP 16
[2020-07-04 14:26] LABS: Coronavirus Test Green County DETECTED
--- NOTE | 2020-07-04 17:17 | PC.NURSE ---
Patient notified of COVID results at this time.
--- NOTE | 2020-07-05 08:33 | PC.NURSE ---
PT WAS CALLED AND GIVEN THE RESULTS OF HIS COVID TEST
== END 2020-07-04 00:33 | disposition home or self-care (01) ==
PROVIDERS: Emergency Provider Nurse Practitioner Family
DX: U07.1 COVID-19 (principal); J40 Bronchitis, not specified as acute or chronic; F17.210 Nicotine dependence, cigarettes, uncomplicated
CPT/HCPCS: 12345; 87635; 99281; 99283; J8540; Q0144

== ENCOUNTER 2020-09-06 21:20 | Emergency (ER) | payer MEDICARE, MEDICAID, SELFPAY ==
[2020-09-06 21:32] VITALS: BP 111/76; PULSE 97; RESP 18; TEMP 37.1; O2SAT 95; BMI 28.3
--- NOTE | 2020-09-06 21:44 | CTR_ITS ---
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 Radiation optimization: All CT scans at this facility use at least one of these dose optimization techniques: automated exposure control; mA and/or kV adjustment per patient size (includes targeted exams where dose is matched to clinical indication); or iterative reconstruction. Contrast material: OMNI 300; Contrast volume: 95 ml; Contrast route: INTRAVENOUS (IV); COMPARISON: CT kidney stone [id number] 11/11/2019 4:04 AM RADIATION DOSE METRICS: Total DLP (mGy-cm): 1216.12 FINDINGS: Lungs: The lung bases are clear. No effusion Liver: Normal. No mass. Gallbladder and bile ducts: No wall thickening, pericholecystic fluid or stones. Pancreas: Normal. No ductal dilation. Spleen: Normal. No splenomegaly. Adrenal glands: Normal. No mass. Kidneys and ureters: Normal. No hydronephrosis. Stomach and bowel: Diverticulosis without diverticulitis. Appendix: No evidence of appendicitis. Intraperitoneal space: Unremarkable. No free air. No significant fluid collection. Vasculature: Unremarkable. No abdominal aortic aneurysm. Lymph nodes: Unremarkable. No enlarged lymph nodes. Urinary bladder: Unremarkable as visualized. Reproductive: Unremarkable as visualized. Bones/joints: Unremarkable. No acute fracture. Soft tissues: Unremarkable. CT/CT abdomen pelvis w con* [id number] IMPRESSION: 1. Diverticulosis without diverticulitis. 2. No cause for acute pain is identified. Radiation Dose CTDIVOL = (mGy): DLP = 1216.12 (mGy-cm)
--- NOTE | 2020-09-06 22:04 | ED_ITS ---
HPI - Abdominal Pain General: Chief Complaint: Abdominal Pain Stated Complaint: right side abd. pain Time Seen by Provider: 09/06/20 21:37 Source: patient Mode of arrival: ambulatory Limitations: no limitations History of Present Illness: HPI narrative: Pleasant 30-year-old male patient presents to the emergency department with right side abdominal pain. He reports landed on a brush guard approximately 2 weeks ago, landed on the right side of his lower chest and his lower abdomen. He reports pain continues. His reports she feels his right side is swollen. He denies nausea vomiting or diarrhea. States pain is worse with movement. Patient reports he drank whiskey yesterday. States whiskey seems to make his stomach hurt worse. MD elicited complaint: abdominal pain Onset (ago): week(s) (2) Pain Consistency: constant and other (worsening) Severity: moderate Quality: aching and dull Radiation: none Migration to: no migration Exacerbating factors: movement Relieving factors: rest Associated Symptoms: Reports no associated symptoms; Denies belching, chills, diarrhea, dysuria, fever(s), nausea and vomiting Review of Systems General: Reports: 10 or more systems reviewed and unremarkable except in HPI and below Const: Denies: fever(s), chills or diaphoresis Eyes: Denies: blurry vision or eye redness ENMT: Denies: throat pain, dental pain or disequilibrium Card: Denies: chest pain, palpitations or irregular heart rhythm Resp: Denies: dyspnea, productive cough, non-productive cough or wheezing GI: Reports: abdominal pain; Denies: nausea, vomiting, diarrhea, belching or pain on defecation : Denies: flank pain, dysuria, urinary urgency, difficulty starting urination or nocturia Musc: Denies: back pain Skin/Breast: Denies: rash or pruritus Neuro: Denies: headache(s), weakness in extremities or behavioral changes Psych: Denies: anxiety, depression or sleeping more Deny/Lymph: Denies: easy bruising PFS ED PFSH: Medical History (Updated 09/06/20 @ 23:17 by ARMEN Stayc) No pertinent past medical history Surgical History No history of previous surgery Family History (Reviewed 01/25/20 @ 22:00 by Yady Fajardo MD, [facility] – [place]) Family/Other Cancer stomach Social History Smoking and tobacco status: current every day smoker Alcohol intake: current Alcohol intake frequency: few times a week Marital status: Life Partner Current occupational status: unemployed History of recent travel: No Physical Exam Const: COMMON NORMALS: no acute distress, patient oriented x3, healthy appearing, alert and well nourished GENERAL APPEARANCE: cooperative, comfortable and well hydrated NUTRITIONAL APPEARANCE: thin ORIENTATION/CONSCIOUSNESS: Yes awake, Yes oriented to person, Yes oriented to place and Yes oriented to time HENMT: COMMON NORMALS: normocephalic, atraumatic, Normal external nose present and moist oral mucous membranes HEAD & SCALP: normal to inspection, normocephalic and atraumatic FACE & SINUS: normal facial exam and face symmetric NOSE: Normal external nose present, Normal nares present and No nasal polyps present THROAT: posterior oropharynx normal, tonsils normal and uvula midline Eye: COMMON NORMALS: Equal, round and reactive pupils present and EOMs intact bilaterally GENERAL EYE: appearance normal, both eyes and all related structures PUPIL: Yes Equal, round and reactive pupils present Neck/C-Spine: COMMON NORMALS: full ROM and no lymphadenopathy GENERAL: Yes normal visual inspection and Yes trachea midline CERVICAL SPINE: Yes cervical ROM normal Lymph: LYMPHATIC: no lymphadenopathy noted Chest: COMMONS NORMALS: normal inspection of the chest CHEST: Yes tenderness rib (lower rt lateral) Breast/axilla inspection: Yes no chest deformity, asymmetry, normal contours, no nodules, masses, tenderness Resp: COMMON NORMALS: normal respiratory effort, No retractions, No use of accessory muscles and clear to auscultation bilaterally EFFORT & INSPECTION: Yes able to speak in complete sentences AUSCULTATION: clear to auscultation bilaterally Cardio: COMMON NORMALS: regular rate, regular rhythm, S1 normal heart sound present, S2 normal heart sound present and Peripheral pulses 2+ throughout RATE: regular rate RHYTHM: regular rhythm HEART SOUNDS: S1 normal heart sound present and S2 normal heart sound present PERIPHERAL PULSES: Peripheral pulses 2+ throughout GI: COMMON NORMALS: Normal to inspection, nondistended, normoactive bowel sounds present and Soft to palpation INSPECTION: Yes normal to inspection, Yes abdominal wall ecchymosis (slight, rt middle), Yes Abdominal wall edema Laterality: right edema details: non-pitting, No abdominal distension, No central obesity and No visible herniation AUSCULTATION: Yes normoactive bowel sounds PALPATION: Yes Soft to palpation and Yes Tenderness to palpation present (GI) Details: RLQ and RUQ : BLADDER/KIDNEY EXAM: Yes CVA tenderness on the right Back/Pelvis: COMMON NORMALS: thoracic and lumbar spine normal to inspection Extremity: COMMON NORMALS: normal to inspection, full ROM, capillary refill normal and no pedal edema GENERAL: Yes normal exam except as noted Neuro: COMMON NORMALS: patient oriented x3 and no focal motor deficits SENSORIUM/ORIENTATION: Yes alert, Yes oriented to person, Yes oriented to place and Yes oriented to time SPEECH: speech normal GAIT: Yes Normal gait present MOTOR EXAM: 5/5 motor strength present throughout Psych: COMMON NORMALS: mental status grossly normal, Normal thought process present and cooperative ACTIVITY/MOTOR BEHAVIOR: Yes appropriate eye contact THOUGHT PROCESS: Normal thought process present Skin: COMMON NORMALS: no rashes or lesions noted, no wounds, turgor normal, no petechiae and no mottling GENERAL SKIN EXAM: no rashes or lesions noted, elasticity normal and turgor normal Course Vital Signs: Vital signs: Vital Signs Temperature 98.7 F 09/06/20 21:32 Pulse Rate 97 09/07/20 00:08 Respiratory Rate 16 09/07/20 00:08 Blood Pressure 115/83 09/07/20 00:08 Pulse Oximetry 94 09/07/20 00:08 MDM - Abdominal Pain MDM Narrative: Medical decision making narrative: 30-year-old male patient presents to the emergency department with abdominal pain x2 weeks. He reports injury, fell on a brush bar on the right side, slight swelling and ecchymosis n oted. He also reports drinking whiskey, lipase was negative, chemistry unremarkable. CBC unremarkable. He has not exhibited nausea vomiting or diarrhea. Urinalysis without hematuria. CT scan abdomen pelvis without acute findings such as pancreatitis or rib fractures. Patient was placed on NSAIDs with recommendation to stop drinking. He was also placed on Pepcid due to suspected gastritis due to drinking. Is advised to avoid EtOH use until abdominal pain resolves. Lab Data: Labs: Lab Results 09/06/20 09/06/20 09/06/20 Range/Units 21:50 22:14 22:14 WBC 9.9 (4.0-10.0) 10^3/ uL RBC 5.30 (4.1-5.3) 10^6/u L Hgb 16.4 (11.7-16.6) g/dL Hct 49.8 (42.0-52.0) % MCV 94.0 (80-94) fL MCH 30.9 (28.0-34.0) pg MCHC 32.9 (30.0-36.0) g/dL RDW 12.2 (12.1-15.1) % Plt Count 234 (130-400) 10^3/c mm MPV 10.5 H (7.4-10.4) fL Neut % (Auto) 64.9 % Lymph % (Auto) 25.5 % Glades % (Auto) 7.7 % Eos % (Auto) 1.0 % Baso % (Auto) 0.6 % Neut # (Auto) 6.43 (1.8-7.7) 10^3/u L Lymph # (Auto) 2.5 (0.8-4.8) 10^3/u L [place]ades # (Auto) 0.8 (0.2-0.9) 10^3/u L Eos # (Auto) 0.1 (0.0-0.8) 10^3/u L Baso # (Auto) 0.1 (0.0-0.1) 10^3/u L Nucleated RBC % (a uto) 0 % Nucleated RBCs # 0.0 /100WBC Sodium 140 (136-145) mmol/L Potassium 4.2 (3.5-5.1) mmol/L Chloride 103 (98-107) mmol/L Carbon Dioxide 26 (22-29) mmol/L Anion Gap 15.2 (5-19) BUN 22 H (6-20) mg/dL Creatinine 0.8 (0.7-1.2) mg/dL GFR Calculation 115.1 (90-130) mL/min Glucose 93 (65-115) mg/dL Calculated Osmolal ity 293 (285-295) mOsm/k g Calcium 9.8 (8.5-10.5) mg/dL Total Bilirubin 0.5 (0.15-1.2) mg/dL AST 17 (0-40) U/L ALT 22 (0-41) U/L Alkaline Phosphata se 52 (40-130) IU/L Total Protein 7.2 (6.6-8.7) g/dL Albumin 4.8 (3.5-5.2) g/dL Globulin 2.4 (1.3-4.6) g/dL Lipase 25 (13-60) U/L Urine Color Yellow (Yellow) Urine Appearance Sl cloudy A (CLEAR) Urine pH 8 H (5-7) Ur Specific Gravit y 1.010 (1.005-1.030) Urine Protein Neg (Negative) Urine Glucose (UA) Norm (Normal) Urine Ketones Negative (Negative) Urine Blood Neg (Negative) Urine Nitrate Negative (Negative) Urine Bilirubin Neg (Negative) Prot Sulfosalicyli c Acd Negative (Negative) Urine Urobilinogen Norm (Negative) mg/dL Ur Leukocyte Julisa ase Negative (Negative) Urine RBC None (0-2) /hpf Urine WBC None (0-5) /hpf Ur Squamous Epith Cells None (0-5) /hpf Amorphous Sediment 2+ /hpf Urine Bacteria Trace (NONE) /hpf Imaging Data ^: CT Abd/Pel: Radiologist's impression: [place] [address] CT Scan Report Signed Patient: Virgilio Maurice Unit #: [id number] : 1990 Acct#:[id number] Age/Sex: 30 / M ADM Date: 09/06/20 Loc: ER Room/Bed: Attending Dr: Ordering Provider/Ordering MD: Cassy Soliman Date of Service: 09/06/20 Procedure(s): CT abdomen pelvis w con* [id number] Accession Number(s): [id number] Report Number: [id number] PROCEDURE INFORMATION: Exam: CT Abdomen And Pelvis With Contrast Exam date and time: 09/06/2020 10:16 PM Age: 30 years old Clinical indication: Injury or trauma; Blunt; Patient HX: C/O 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 Radiation optimization: All CT scans at this facility use at least one of these dose optimization techniques: automated exposure control; mA and/or kV adjustment per patient size (includes targeted exams where dose is matched to clinical indication); or iterative reconstruction. Contrast material: OMNI 300; Contrast volume: 95 ml; Contrast route: INTRAVENOUS (IV); COMPARISON: CT kidney stone [id number] 11/11/2019 4:04 AM RADIATION DOSE METRICS: Total DLP (mGy-cm): 1216.12 FINDINGS: Lungs: The lung bases are clear. No effusion Liver: Normal. No mass. Gallbladder and bile ducts: No wall thickening, pericholecystic fluid or stones. Pancreas: Normal. No ductal dilation. Spleen: Normal. No splenomegaly. Adrenal glands: Normal. No mass. Kidneys and ureters: Normal. No hydronephrosis. Stomach and bowel: Diverticulosis without diverticulitis. Appendix: No evidence of appendicitis. Intraperitoneal space: Unremarkable. No free air. No significant fluid collection. Vasculature: Unremarkable. No abdominal aortic aneurysm. Lymph nodes: Unremarkable. No enlarged lymph nodes. Urinary bladder: Unremarkable as visualized. Reproductive: Unremarkable as visualized. Bones/joints: Unremarkable. No acute fracture. Soft tissues: Unremarkable. CT/CT abdomen pelvis w con* [id number] IMPRESSION: 1. Diverticulosis without diverticulitis. 2. No cause for acute pain is identified. Radiation Dose CTDIVOL = (mGy): DLP = 1216.12 (mGy-cm) Dictated By: Graham Elizabeth Signed By: Graham Elizabeth Signed Date/Time: 09/06/202253 DD/ 51 Discharge Plan Discharge Patient Disposition: Home Clinical Impression: Gastritis Qualifiers: Gastritis type: alcoholic Chronicity: acute Gastritis bleeding: without bleeding Qualified Code(s): K29.20 - Alcoholic gastritis without bleeding Abdominal pain Qualifiers: Abdominal location: generalized Qualified Code(s): R10.84 - Generalized abdominal pain Abdominal wall contusion Qualifiers: Encounter type: initial encounter Qualified Code(s): S30.1XXA - Contusion of abdominal wall, initial encounter Condition: Stable Prescriptions: New Pepcid 20 mg tablet 20 mg PO BID Qty: 20 RF: 0 IBU 600 mg tablet 600 mg PO TID PRN (Reason: pain) Qty: 20 RF: 0 Discontinued ibuprofen 800 mg tablet 800 mg PO TID PRN (Reason: pain) Qty: 20 RF: 0 No Action [place] 5-325 mg tablet 1 tab PO Q6H PRN (Reason: pain) Qty: 20 RF: 0 benzonatate 200 mg capsule 200 mg PO TID PRN (Reason: cough) Qty: 20 RF: 0 Decadron 6 mg tablet 6 mg PO DAILY Qty: 7 RF: 0 Discharge Orders: Discharge ED (Routine); Ordered 09/06/20 Ordered By: Cassy Soliman Discharge Diet: Usual diet Discharge Activity: Limit activity as instructed Patient Instructions: Gastritis (ED), Contusion in Adults (ED), Abdominal Pain (ED), Opioid Safety Activity Restrictions/Additional Instructions: Avoid alcohol, this can increase abdominal pain Return to the emergency department if you develop nausea vomiting or worsening abdominal pain Follow-up with your primary care provider in 3 to 4 days, protective services social worker will contact you with an appointment to ensure you are improving Coding Level of Care Code ED Cleaning Staff Supervisor for Bj Fwd Exam Comprehensive
[2020-09-06] MEDS: iohexol 300 mg/mL 100 mL Btl IV (22:26)
[2020-09-06 22:33] VITALS: BP 123/75; PULSE 85; O2SAT 94
[2020-09-06 22:34] LABS: Basophils # 0.1 10^3/uL (0.0-0.1); Basophils % 0.6 %; Eosinophils # 0.1 10^3/uL (0.0-0.8); Hematocrit 49.8 % (42.0-52.0); Hemoglobin 16.4 g/dL (11.7-16.6); Lymphocytes # 2.5 10^3/uL (0.8-4.8); Lymphocytes % 25.5 %; Mean Corpuscular HGB Conc 32.9 g/dL (30.0-36.0); Mean Corpuscular Hemoglobin 30.9 pg (28.0-34.0); Mean Platelet Volume 10.5 fL (7.4-10.4); Monocytes # 0.8 10^3/uL (0.2-0.9); Monocytes % 7.7 %; Neutrophils # 6.43 10^3/uL (1.8-7.7); Neutrophils % 64.9 %; Nucleated Red Blood Cells % 0 %; Platelet Count 234 10^3/cmm (130-400); Red Cell Distribution Width 12.2 % (12.1-15.1); White Blood Count 9.9 10^3/uL (4.0-10.0)
[2020-09-06 22:41] LABS: Add Urine Culture? No; Add Urine Microscopic? YES; Amorphous Sediment Urine 2+ /hpf; Bacteria Urine TRACE /hpf; Bilirubin Urine Neg (Negative); Blood Urine Neg (Negative); Glucose Urine UA Norm (Normal); Ketones Urine Negative (Negative); Leukocyte Esterase Urine Negative (Negative); Nitrate Urine Negative (Negative); Protein Urine Neg (Negative); Sulfosalicylic Acid Urine Negative (Negative); Urine Color Yellow (Yellow); Urobilinogen Urine Norm (Negative); pH Urine 8 (5-7)
[2020-09-06 22:55] LABS: Alanine Aminotransferase 22 U/L (0-41); Albumin Level 4.8 g/dL (3.5-5.2); Alkaline Phosphatase 52 IU/L (40-130); Anion Gap 15.2 (5-19); Aspartate Amino Transferase 17 U/L (0-40); Blood Urea Nitrogen 22 mg/dL (6-20); Calcium 9.8 mg/dL (8.5-10.5); Carbon Dioxide 26 mmol/L (22-29); Chloride 103 mmol/L (98-107); Globulin 2.4 g/dL (1.3-4.6); Glomerular Filtration Rate 115.1 mL/min (90-130); Glucose 93 mg/dL (65-115); Lipase 25 U/L (13-60); Osmolality Calculated 293 mOsm/kg (285-295); Potassium 4.2 mmol/L (3.5-5.1); Sodium 140 mmol/L (136-145); Total Bilirubin 0.5 mg/dL (0.15-1.2); Total Protein 7.2 g/dL (6.6-8.7)
[2020-09-06] MEDS: ondansetron 2 mg/ML SDV 2 mL 4 MG IVP (23:16)
[2020-09-06 23:19] VITALS: RESP 16; O2SAT 96
[2020-09-06] MEDS: morphine 4 mg/mL SDV 1 mL 2 MG IVP (23:19)
[2020-09-07] MEDS: famotidine 20 mg Tablet 40 MG PO (00:03)
[2020-09-07 00:08] VITALS: BP 115/83; PULSE 97; RESP 16; O2SAT 94
--- NOTE | 2020-09-11 13:40 | DCPLANNER ---
corporate logistics manager had message to speak with patient about getting established with a primary care physician. corporate logistics manager called phone number [phone], unable to speak with patient at this time, a voicemail was left for patient to return caser up phone call.
== END 2020-09-07 00:11 | disposition home or self-care (01) ==
PROVIDERS: Emergency Provider Nurse Practitioner Family
DX: K29.20 Alcoholic gastritis without bleeding (principal); R10.84 Generalized abdominal pain; S30.1XXA Contusion of abdominal wall, initial encounter; F17.210 Nicotine dependence, cigarettes, uncomplicated
CPT/HCPCS: 74177; 80053; 81001; 83690; 85025; 96374; 96375; 99284; J2270; J2405; Q9967

== ENCOUNTER 2020-10-09 04:29 | Emergency (ER) | payer MEDICARE, MEDICAID, SELFPAY ==
[2020-10-09 04:32] VITALS: BP 105/88; PULSE 117; RESP 18; TEMP 37; O2SAT 97; BMI 27.4
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
[2020-10-09] MEDS: HYDROcodone-acetaminophen 7.5-325 mg Tablet 1 TAB PO (04:41)
[2020-10-09] MEDS: tetanus-dipt-pertussis 0.5 mL SDV IM (04:41)
[2020-10-09 04:59] VITALS: BP 105/88; PULSE 86; RESP 20; O2SAT 97
[2020-10-09 05:32] VITALS: BP 114/80; PULSE 86; RESP 20
== END 2020-10-09 05:33 | disposition home or self-care (01) ==
PROVIDERS: Emergency Provider Emergency Medicine
DX: S09.8XXA Other specified injuries of head, initial encounter (principal); S01.111A Laceration without foreign body of right eyelid and periocular area, initial encounter; Y04.8XXA Assault by other bodily force, initial encounter; F17.210 Nicotine dependence, cigarettes, uncomplicated; Z23 Encounter for immunization
CPT/HCPCS: 12011; 70450; 70486; 90471; 90715; 99283

== ENCOUNTER → 2021-01-27 11:01 | Outpatient (BNVA) | payer MEDICARE, MEDICAID, SELFPAY | PROVIDERS: Visit Provider Nurse Practitioner Family | DX: Z20.822 Contact with and (suspected) exposure to COVID-19 (principal); J06.9 Acute upper respiratory infection, unspecified | CPT/HCPCS: 87635 ==

== ENCOUNTER 2021-04-08 20:41 | Emergency (ER) | payer MEDICARE, MEDICAID, SELFPAY ==
[2021-04-08 20:43] VITALS: BP 112/76; PULSE 99; RESP 19; TEMP 36.8; O2SAT 97; BMI 32.1
--- NOTE | 2021-04-08 20:58 | XRR_ITS ---
PROCEDURE INFORMATION: Exam: XR Left Wrist Exam date and time: 04/08/2021 8:58 PM Age: 31 years old Clinical indication: Patient HX: Left wrist pain, no known injury TECHNIQUE: Imaging protocol: XR Left wrist. Views: 3 or more views. COMPARISON: No relevant prior studies available. FINDINGS: Bones/joints: Normal. Soft tissues: Normal. XR/XR wrist LT min 3V* [id number] IMPRESSION: No acute findings. Radiation Dose CTDIVOL = (mGy): DLP = (mGy-cm)
--- NOTE | 2021-04-08 20:58 | W.ED.EXTPRO ---
HPI - Extremity Problem General: Chief complaint: Extremity Injury, Upper Stated complaint: L arm Pain Time Seen by Provider: 04/08/21 20:55 Source: patient Mode of arrival: ambulatory Limitations: no limitations History of Present Illness: HPI Narrative: 31-year-old male states he has been having some left wrist pain over the last 2 days. He states he works with his hands a lot over the palmar side of his wrist. He states that he ran a chainsaw all day today has had increasing pain shoots up his arm. He states his pain is sharp in nature and rates it a 6 out of 10. He states improved with rest worsened with any movement. Denies any specific injury denies any neck pain denies any shoulder pain denies any chest pain. Associated symptoms: Deny chest pain, fever(s) or rash Review of Systems Const: Denies: fever(s), chills, body aches or change in appetite Eyes: Denies: blurry vision or eye discomfort ENMT: Denies: throat pain or dental pain Card: Denies: chest pain Resp: Denies: dyspnea GI: Denies: abdominal pain, nausea, vomiting or diarrhea : Denies: dysuria Musc: Reports: extremity pain Skin/Breast: Denies: rash Neuro: Denies: headache(s) Psych: Denies: depression Deny/Lymph: Denies: easy bruising All/Imm: Denies: urticaria PFSH ED PFSH: Medical History No pertinent past medical history Psychiatric care Surgical History No history of previous surgery Family History Family/Other Cancer stomach Social History Smoking and tobacco status: current every day smoker Alcohol intake: current Alcohol intake frequency: few times a week Marital status: Life Partner Current occupational status: unemployed History of recent travel: No Physical Exam Const: COMMON NORMALS: no acute distress, patient oriented x3 and healthy appearing HENMT: COMMON NORMALS: normocephalic and atraumatic HEAD & SCALP: normocephalic and atraumatic Eye: COMMON NORMALS: Equal, round and reactive pupils present and EOMs intact bilaterally PUPIL: Yes Equal, round and reactive pupils present Neck/C-Spine: COMMON NORMALS: full ROM and supple Chest: COMMONS NORMALS: normal inspection of the chest and normal palpation of entire chest wall Resp: COMMON NORMALS: normal respiratory effort, No retractions, No use of accessory muscles and clear to auscultation bilaterally AUSCULTATION: clear to auscultation bilaterally Cardio: COMMON NORMALS: regular rate, regular rhythm and No murmurs present (Cardio) RATE: regular rate RHYTHM: regular rhythm GI: COMMON NORMALS: Normal to inspection, nondistended, normoactive bowel sounds present, Soft to palpation, non-tender and no masses PALPATION: Yes Soft to palpation Extremity: COMMON NORMALS: normal to inspection and full ROM NARRATIVE EXTREMITY EXAM: Tenderness along left wrist he does have a positive Phalen sign Neuro: COMMON NORMALS: patient oriented x3, moves all extremities and no focal motor deficits Psych: COMMON NORMALS: mental status grossly normal, Normal thought process present and cooperative THOUGHT PROCESS: Normal thought process present Skin: COMMON NORMALS: no rashes or lesions noted and no wounds GENERAL SKIN EXAM: no rashes or lesions noted Course Vital Signs: Vital signs: Vital Signs Temperature 98.3 F 04/08/21 20:43 Pulse Rate 99 04/08/21 20:43 Respiratory Rate 19 H 04/08/21 20:43 Blood Pressure 112/76 04/08/21 20:43 Pulse Oximetry 97 04/08/21 20:43 MDM - Extremity (Nontraumatic) MDM Narrative: Medical decision making narrative: Patient presents here with wrist pain history consistent with likely carpal tunnel syndrome patient placed in a Velcro cock-up splint and is to follow-up with orthopedics he is prescribed Naprosyn is return if worsening. Imaging Data^: xr L wrist: Attestation: I personally reviewed and interpreted this imaging study as follows: My impression: no acute abnormality Discharge Plan Discharge Patient Disposition: Home Clinical Impression: Wrist pain, left Condition: Stable Prescriptions: New Naprosyn 500 mg tablet 500 mg PO BID PRN (Reason: pain) Qty: 20 RF: 0 Discharge Orders: Discharge ED (Routine); Ordered 04/08/21 Ordered By: Cristian Conner Referrals: Bill Vidse MD [Physician] - 1-3 days Discharge Diet: Advance as tolerated Discharge Activity: Resume usual activity Patient Instructions: Carpal Tunnel Syndrome Coding Level of Care Code ED Scientist/Engineer for Bj Fwisabel Exam Comprehensive
[2021-04-08] MEDS: ketorolac 60 mg/2 mL INJ IM (21:07)
[2021-04-08 21:28] VITALS: BP 120/69; PULSE 93; O2SAT 95
--- NOTE | 2021-04-10 09:36 | DCPLANNER ---
access manager had message to schedule a follow up appointment for patient with ortho. access manager called the ortho clinic, spoke with Sharmila, gave clinic patients information. access manager was told that patients information would be printed and reviewed. Clinic will call patient with appointment information.
--- NOTE | 2021-04-16 14:32 | DCPLANNER ---
Patient has a follow up appointment scheduled for Tuesday, April 29, 2021 at 3:[address] Vides. Clinic will call patient with appointment information.
--- NOTE | 2021-07-05 16:03 | DCPLANNER ---
Patient had a follow up appointment scheduled with ortho - appointment was cancelled.
== END 2021-04-08 21:31 | disposition home or self-care (01) ==
PROVIDERS: Emergency Provider Emergency Medicine
DX: M25.532 Pain in left wrist (principal); F17.200 Nicotine dependence, unspecified, uncomplicated
CPT/HCPCS: 29125; 73110; 96372; 99283; J1885

== ENCOUNTER 2021-04-10 22:47 | Emergency (ER) | payer MEDICARE, MEDICAID, SELFPAY ==
[2021-04-10 22:57] VITALS: BP 114/79; PULSE 80; RESP 16; TEMP 36.1; O2SAT 98; BMI 32.1
--- NOTE | 2021-04-11 00:44 | W.ED.MALEGU ---
HPI - Male Genitourinary General: Chief complaint: Urogenital-Male Stated complaint: UTI Time Seen by Provider: 04/11/21 00:39 History of Present Illness: HPI Narrative: 31-year-old male patient comes in today with complaints of urinary discomfort. Patient reports that it feels like he pees razor blades. Patient has a history of renal stones. Patient denies any penile discharge but states he is never been checked for gonorrhea or chlamydia. Associated symptoms: Reports dysuria Review of Systems General: Reports: 10 or more systems reviewed and unremarkable except in HPI and below : Reports: dysuria PFSH ED PFSH: Medical History No pertinent past medical history Psychiatric care Surgical History No history of previous surgery Family History Family/Other Cancer stomach Social History Smoking and tobacco status: current every day smoker Alcohol intake: current Alcohol intake frequency: few times a week Marital status: Life Partner Current occupational status: unemployed History of recent travel: No Physical Exam Const: COMMON NORMALS: no acute distress and patient oriented x3 GENERAL APPEARANCE: cooperative HENMT: COMMON NORMALS: normocephalic and Normal external nose present HEAD & SCALP: normal to inspection and normocephalic NOSE: Normal external nose present MOUTH: Normal oral and palatal mucosa present Eye: GENERAL EYE: appearance normal, both eyes and all related structures Neck/C-Spine: COMMON NORMALS: full ROM Chest: COMMONS NORMALS: normal inspection of the chest Resp: COMMON NORMALS: normal respiratory effort EFFORT & INSPECTION: Yes able to speak in complete sentences Cardio: COMMON NORMALS: regular rate and regular rhythm RATE: regular rate RHYTHM: regular rhythm GI: COMMON NORMALS: non-tender : COMMON NORMALS: Yes no CVA tenderness BLADDER/KIDNEY EXAM: Yes no CVA tenderness PENIS: normal penis and circumcised SCROTUM: Yes testes descended bilaterally and Yes Cremasteric reflex present Back/Pelvis: COMMON NORMALS: no CVA tenderness and thoracic and lumbar spine normal to inspection Extremity: COMMON NORMALS: normal to inspection Neuro: COMMON NORMALS: patient oriented x3 and moves all extremities Psych: COMMON NORMALS: mental status grossly normal and cooperative Skin: COMMON NORMALS: no rashes or lesions noted GENERAL SKIN EXAM: no rashes or lesions noted Course Vital Signs: Vital signs: Vital Signs Temperature 96.9 F L 04/10/21 22:57 Pulse Rate 80 04/10/21 22:57 Respiratory Rate 16 04/10/21 22:57 Blood Pressure 114/79 04/10/21 22:57 Pulse Oximetry 98 04/10/21 22:57 MDM - Male MDM Narrative: Medical decision making narrative: 31-year-old male patient comes in today with complaints of burning with urination. Patient reports symptoms for the last 3 months. On exam patient appears well. Patient has no redness or drainage from the penile meatus. No CVA tenderness. Respirations are even lungs are clear to auscultation. Abdomen soft nontender. Differential diagnosis includes urinary tract infection, urethritis, renal calculi. Urinalysis was normal except for some urobilinogen. Recommend the patient be treated with doxycycline and ceftriaxone for possible gonorrhea/chlamydia urethritis. We sent a lab test for gonorrhea chlamydia per urine. Patient reports understanding of care plan and need for follow-up or return to the ER. Lab Data: Labs: Lab Results 04/11/21 00:40 Urine Color Yellow (Yellow) Urine Appearance Clear (CLEAR) Urine pH 6 (5-7) Ur Specific Gravit y 1.020 (1.005-1.030) Urine Protein Neg (Negative) Urine Glucose (UA) Norm (Normal) Urine Ketones Negative (Negative) Urine Blood Neg (Negative) Urine Nitrate Negative (Negative) Urine Bilirubin Neg (Negative) Urine Urobilinogen 1 mg/dL H mg/dL (Negative) Ur Leukocyte Julisa ase Negative (Negative) Discharge Plan Discharge Patient Disposition: Home Clinical Impression: Urethritis Condition: Stable Prescriptions: New doxycycline monohydrate 100 mg capsule 100 mg PO BID 7 Days Qty: 14 RF: 0 No Action Naprosyn 500 mg tablet 500 mg PO BID PRN (Reason: pain) Qty: 20 RF: 0 Discharge Orders: Discharge ED (Routine); Ordered 04/11/21 Ordered By: Juliocesar White Discharge Diet: Usual diet Discharge Activity: Increase activity as tolerated Patient Instructions: Opioid Safety, Urethritis - Male Activity Restrictions/Additional Instructions: Follow-up with primary care for further instructions and persistent symptoms. Drink plenty of water with medications. You may use [id number] AZO for urinary discomfort. Use acetaminophen or ibuprofen otherwise. Return to the emergency room for new concerns or worsening symptoms. Coding Level of Care Code ED Field Contact Person for Bj Fwisabel Exam Comprehensive
[2021-04-11 00:52] LABS: Add Urine Microscopic? NO; Charge for UA Resulting for Rev
[2021-04-11 01:35] LABS: Bilirubin Urine Neg (Negative); Blood Urine Neg (Negative); Glucose Urine UA Norm (Normal); Ketones Urine Negative (Negative); Leukocyte Esterase Urine Negative (Negative); Nitrate Urine Negative (Negative); Protein Urine Neg (Negative); Urine Appearance Clear (CLEAR); Urine Color Yellow (Yellow); Urobilinogen Urine 1 mg/dL (Negative); pH Urine 6 (5-7)
[2021-04-11] MEDS: doxycycline 100 mg Tablet PO (02:13)
== END 2021-04-11 02:51 | disposition home or self-care (01) ==
PROVIDERS: Emergency Provider Nurse Practitioner Family
DX: N34.2 Other urethritis (principal); F17.200 Nicotine dependence, unspecified, uncomplicated
CPT/HCPCS: 81003; 87491; 87591; 96372; 99283; J0696

== ENCOUNTER → 2021-05-19 13:12 | Outpatient (BNVA) | payer MEDICARE, MEDICAID, SELFPAY | PROVIDERS: Visit Provider Psychiatry & Neurology Psychiatry | DX: F63.81 Intermittent explosive disorder (principal); F41.1 Generalized anxiety disorder; F10.11 Alcohol abuse, in remission; F79 Unspecified intellectual disabilities; F43.9 Reaction to severe stress, unspecified | CPT/HCPCS: 99204 ==

== ENCOUNTER 2021-05-30 19:31 | Emergency (ER) | payer MEDICARE, MEDICAID, SELFPAY ==
[2021-05-30 19:42] VITALS: BP 129/82; PULSE 112; RESP 16; TEMP 36.8; O2SAT 95
--- NOTE | 2021-05-30 20:08 | ED_ITS ---
HPI - Male Genitourinary General: Chief complaint: Urogenital-Male Stated complaint: Rt Side Pain, Hard to Pee Time Seen by Provider: 05/30/21 19:48 History of Present Illness: HPI Narrative: Patient is a 31-year-old male comes to the ED with right flank pain. Patient says symptoms started several hours ago. He bent over to grab an air compressor and then felt the pain in his right flank. Currently rates the pain of 5 out of 10. Pain worsens with any movement of torso. He has a history of kidney stones and says he has had this pain before. He also reports that in the morning sometimes is hard for him to urinate and he has a full bladder and it might take him 1 to 2 hours to urinate in the mornings. Currently here in the ED he is not having any problems urinating denies any bladder pain or lower abdominal pain. Throughout the rest the day he is able to urinate normally without any difficulty. Denies fever, chills, nausea, bowel symptoms. Associated symptoms: Deny dysuria, hematuria, nausea or vomiting Review of Systems Const: Denies: fever(s), chills or fatigue Eyes: Denies: change in vision or eye discomfort ENMT: Denies: throat pain, odynophagia, nasal discharge or nasal congestion Card: Denies: chest pain, palpitations, edema, swelling of feet/ankles, dyspnea on exertion or orthopnea Resp: Denies: dyspnea, productive cough or non-productive cough GI: Reports: abdominal pain (Right side); Denies: nausea, vomiting, diarrhea, constipation or hematochezia : Reports: flank pain (right flank pain) and difficulty urinating (in the mornings when he wakes up.); Denies: dysuria or hematuria Musc: Denies: neck pain, back pain or extremity swelling Skin/Breast: Denies: rash or new lesions Neuro: Denies: headache(s), numbness in extremities or weakness in extremities PFS ED PFSH: Medical History No pertinent past medical history Psychiatric care Surgical History No history of previous surgery Family History Family/Other Cancer stomach Social History Smoking and tobacco status: former smoker Quit status (tobacco): has quit using tobacco Year quit tobacco: 2019 Second hand smoke exposure: No Alcohol intake: current Alcohol intake frequency: few times a week Marital status: Life Partner Current occupational status: unemployed History of recent travel: No Physical Exam Const: COMMON NORMALS: no acute distress, patient oriented x3 and alert GENERAL APPEARANCE: cooperative and comfortable HENMT: COMMON NORMALS: normocephalic HEAD & SCALP: normocephalic MOUTH: Normal oral and palatal mucosa present THROAT: posterior oropharynx normal and uvula midline Neck/C-Spine: COMMON NORMALS: supple GENERAL: Yes normal visual inspection Resp: COMMON NORMALS: normal respiratory effort, No retractions, No use of accessory muscles and clear to auscultation bilaterally AUSCULTATION: clear to auscultation bilaterally Cardio: COMMON NORMALS: regular rate, regular rhythm, S1 normal heart sound present, S2 normal heart sound present, No gallops present (Cardio), No clicks present (Cardio), No murmurs present (Cardio) and Peripheral pulses 2+ throughout RATE: regular rate RHYTHM: regular rhythm HEART SOUNDS: S1 normal heart sound present and S2 normal heart sound present PERIPHERAL PULSES: Peripheral pulses 2+ throughout GI: COMMON NORMALS: Normal to inspection, nondistended, normoactive bowel sounds present, Soft to palpation and no masses PALPATION: Yes Soft to palpation and Yes Tenderness to palpation present (GI) (Right-sided right flank tenderness- no local tenderness) : COMMON NORMALS: Yes no CVA tenderness BLADDER/KIDNEY EXAM: Yes no CVA tenderness Back/Pelvis: COMMON NORMALS: no CVA tenderness Extremity: COMMON NORMALS: normal to inspection Neuro: COMMON NORMALS: patient oriented x3 and moves all extremities SENS ORIUM/ORIENTATION: Yes alert Skin: GENERAL SKIN EXAM: dry skin Course Vital Signs: Vital signs: Vital Signs Temperature 98.4 F 05/30/21 20:23 Pulse Rate 100 05/30/21 20:23 Respiratory Rate 16 05/30/21 20:23 Blood Pressure 94/58 05/30/21 20:23 Pulse Oximetry 98 05/30/21 20:23 MDM - Male MDM Narrative: Medical decision making narrative: Patient is a 31-year-old male comes to the ED with right flank and/right abdominal pain. Pain started a fter he bent over left an air compressor. He has pain with any movement of his torso. Denies any hematuria or pain when urinating. Vitals stable. Exam shows some generalized soft tissue muscular tenderness on the right side of the abdomen. CBC and CMP unremarkable. UA showed no acute findings of blood or infection. Patient's labs are all normal and his pain is only rated at like a 3 out of 10. Due to patient's clinical presentation and exam findings and labs I do not think he needs any further imaging or work-up. It appears that his right side abdominal pain is likely muscular. Patient was discharged home with a prescription for Celebrex and cyclobenzaprine. He was told to follow-up with his PCP in Lab Data: Attestation: I reviewed the patient's lab results. Labs: Lab Results 05/30/21 05/30/21 05/30/21 20:05 20:05 20:40 WBC 9.2 10^3/uL 10^3/ uL (4.0-10.0) RBC 4.98 10^6/uL 10^6 /uL (4.1-5.3) Hgb 15.9 g/dL g/dL (11.7-16.6) Hct 45.4 % % (42.0-52.0) MCV 91.2 fl fl (80-94) MCH 31.9 pg pg (28.0-34.0) MCHC 35.0 g/dL g/dL (30.0-36.0) RDW 11.8 % L % (12.1-15.1) Plt Count 210 10^3/cmm 10^3 /cmm (130-400) MPV 11.0 fL H fL (7.4-10.4) Neut % (Auto) 60.3 % % Lymph % (Auto) 29.7 % % Winston % (Auto) 6.6 % % Eos % (Auto) 2.4 % % Baso % (Auto) 0.7 % % Neut # (Auto) 5.56 10^3/uL 10^3 /uL (1.8-7.7) Lymph # (Auto) 2.7 10^3/uL 10^3/ uL (0.8-4.8) Winston # (Auto) 0.6 10^3/uL 10^3/ uL (0.2-0.9) Eos # (Auto) 0.2 10^3/uL 10^3/ uL (0.0-0.8) Baso # (Auto) 0.1 10^3/uL 10^3/ uL (0.0-0.1) Nucleated RBC % (a uto) 0 % % Nucleated RBCs # 0.0 /100WBC /100W BC Sodium 140 mmol/L mmol/L (136-145) Potassium 4.2 mmol/L mmol/L (3.5-5.1) Chloride 104 mmol/L mmol/L (98-107) Carbon Dioxide 20 mmol/L L mmol/ L (22-29) Anion Gap 20.2 H (5-19) BUN 15 mg/dL mg/dL (6-20) Creatinine 0.8 mg/dL mg/dL (0.7-1.2) GFR Calculation 114.3 mL/min mL/m in (90-130) Glucose 106 mg/dL mg/dL (65-115) Calculated Osmolal ity 291 mOsm/kg mOsm/ kg (285-295) Calcium 8.6 mg/dL mg/dL (8.5-10.5) Total Bilirubin 0.2 mg/dL mg/dL (0.15-1.2) AST U/L U/L (0-40) ALT U/L U/L (0-41) Alkaline Phosphata se 62 IU/L IU/L (40-130) Total Protein 6.6 g/dL g/dL (6.6-8.7) Albumin 4.6 g/dL g/dL (3.5-5.2) Globulin 2.0 g/dL g/dL (1.3-4.6) Lipase 24 U/L U/L (13-60) Urine Color Yellow (Yellow) Urine Appearance Clear (CLEAR) Urine pH 7 (5-7) Ur Specific Gravit y 1.010 (1.005-1.030) Urine Protein Neg (Negative) Urine Glucose (UA) Norm (Normal) Urine Ketones 1+ H (Negative) Urine Blood Neg (Negative) Urine Nitrate Negative (Negative) Urine Bilirubin Neg (Negative) Urine Urobilinogen 1 mg/dL H mg/dL (Negative) Ur Leukocyte Julisa ase Negative (Negative) Discharge Plan Discharge Patient Disposition: Home Clinical Impression: Pain in abdominal muscle of right flank Condition: Stable Prescriptions: New celecoxib 100 mg capsule 100 mg PO BID PRN (Reason: pain) Qty: 20 RF: 0 cyclobenzaprine 10 mg tablet 10 mg PO BID PRN (Reason: muscle spasm) Qty: 20 RF: 0 No Action fluoxetine [Prozac] 20 mg capsule 20 mg PO DAILY Qty: 30 RF: 2 trazodone 50 mg tablet 100 mg PO .HS PRN (Reason: insomnia) Qty: 60 RF: 2 Discharge Orders: Discharge ED (Routine); Ordered 05/30/21 Ordered By: Dann Solorzano Discharge Diet: Regular Discharge Activity: Increase activity as tolerated Patient Instructions: Muscle Strain (DC) Activity Restrictions/Additional Instructions: Follow-up with medical provider as directed in 7 to 10 days reevaluation. Take medications as prescribed. Return to the ER or your medical provider if condition worsens. Please read and understand discharge instructions. Thank you for choosing [facility] for your healthcare needs today. Please realize this is an emergency room and that we are providing you with a medical screening exam and this may not be complete and all inclusive of all the testing and or work up that you may need to determine your ailment or severity of your illness. It is very important that you follow up as instructed or that you return to the Emergency Department should you have concerns or if your condition changes or worsens in any way. Coding Level of Care Code ED Painting Worker for Bj Anna Exam Comprehensive
[2021-05-30 20:21] LABS: Basophils # 0.1 10^3/uL (0.0-0.1); Basophils % 0.7 %; Eosinophils # 0.2 10^3/uL (0.0-0.8); Eosinophils % 2.4 %; Hematocrit 45.4 % (42.0-52.0); Hemoglobin 15.9 g/dL (11.7-16.6); Lymphocytes # 2.7 10^3/uL (0.8-4.8); Lymphocytes % 29.7 %; Mean Corpuscular Hemoglobin 31.9 pg (28.0-34.0); Mean Corpuscular Volume 91.2 fl (80-94); Monocytes # 0.6 10^3/uL (0.2-0.9); Monocytes % 6.6 %; Neutrophils # 5.56 10^3/uL (1.8-7.7); Neutrophils % 60.3 %; Nucleated Red Blood Cells % 0 %; Platelet Count 210 10^3/cmm (130-400); Red Blood Count 4.98 10^6/uL (4.1-5.3); Red Cell Distribution Width 11.8 % (12.1-15.1); White Blood Count 9.2 10^3/uL (4.0-10.0)
[2021-05-30 20:23] VITALS: BP 94/58; PULSE 100; RESP 16; TEMP 36.9; O2SAT 98
[2021-05-30 20:30] LABS: Albumin Level 4.6 g/dL (3.5-5.2); Alkaline Phosphatase 62 IU/L (40-130); Blood Urea Nitrogen 15 mg/dL (6-20); Calcium 8.6 mg/dL (8.5-10.5); Carbon Dioxide 20 mmol/L (22-29); Chloride 104 mmol/L (98-107); Glomerular Filtration Rate 114.3 mL/min (90-130); Glucose 106 mg/dL (65-115); Lipase 24 U/L (13-60); Osmolality Calculated 291 mOsm/kg (285-295); Sodium 140 mmol/L (136-145); Total Bilirubin 0.2 mg/dL (0.15-1.2); Total Protein 6.6 g/dL (6.6-8.7)
[2021-05-30 20:42] LABS: Anion Gap 20.2 (5-19); Potassium 4.2 mmol/L (3.5-5.1)
[2021-05-30 20:46] LABS: Add Urine Microscopic? NO; Charge for UA Resulting for Rev
[2021-05-30 20:50] LABS: Bilirubin Urine Neg (Negative); Blood Urine Neg (Negative); Glucose Urine UA Norm (Normal); Ketones Urine 1+ (Negative); Leukocyte Esterase Urine Negative (Negative); Nitrate Urine Negative (Negative); Protein Urine Neg (Negative); Urine Appearance Clear (CLEAR); Urine Color Yellow (Yellow); Urobilinogen Urine 1 mg/dL (Negative); pH Urine 7 (5-7)
[2021-05-30] MEDS: ketorolac 30 mg/mL INJ IVP (21:45)
== END 2021-05-30 21:53 | disposition home or self-care (01) ==
PROVIDERS: Emergency Provider Physician Assistant
DX: M79.18 Myalgia, other site (principal); Z87.891 Personal history of nicotine dependence
CPT/HCPCS: 80053; 81003; 83690; 85025; 96374; 99283; 99284; 99291; J1885

== ENCOUNTER 2021-07-31 23:10 | Emergency (ER) | payer MEDICARE, MEDICAID, SELFPAY ==
[2021-07-31 23:16] VITALS: BP 122/78; PULSE 89; RESP 18; TEMP 36.8; O2SAT 98; BMI 31.4
--- NOTE | 2021-07-31 23:30 | XRR_ITS ---
PROCEDURE INFORMATION: Exam: XR Chest Exam date and time: 07/31/2021 11:30 PM Age: 31 years old Clinical indication: Shortness of breath; Patient HX: C/O SOB. Recent covid exposure. ; Additional info: Covid symptoms TECHNIQUE: Imaging protocol: XR of the chest. Views: 1 view. COMPARISON: CR Chest 1 [place] [id number] 07/11/2016 10:25 PM FINDINGS: Lungs: Unremarkable. No consolidation. Pleural spaces: Unremarkable. No pleural effusion. No pneumothorax. Heart/Mediastinum: Unremarkable. No cardiomegaly. Bones/joints: Unremarkable. XR/XR chest 1V portable [id number] IMPRESSION: No acute findings.
--- NOTE | 2021-07-31 23:31 | W.ED.URI ---
HPI - URI/Sore Throat General: Chief Complaint: Shortness of Breath/Dyspnea Stated Complaint: sob, cough, covid exposure Time Seen by Provider: 07/31/21 23:16 History of Present Illness: Patient is a 31-year-old male comes to the ED with Covid symptoms. Patient has been having a headache, dry cough, nasal congestion and drainage for the past 5 days. Yesterday patient's girlfriend, whom he lives with tested positive for COVID-19. He is also feeling some shortness of breath when up and ambulating. Denies any fever, chills, nausea/vomiting, bladder or bowel symptoms. Associated symptoms: Reports headache(s) and nasal congestion; Deny abdominal pain, chills, chest pain, diarrhea, fever(s), nausea or vomiting Review of Systems Const: Denies: fever(s), chills or fatigue Eyes: Denies: change in vision or eye discomfort ENMT: Reports: nasal discharge and nasal congestion; Denies: throat pain or odynophagia Card: Denies: chest pain, palpitations, edema, swelling of feet/ankles, dyspnea on exertion or orthopnea Resp: Reports: dyspnea (mild shortness of breath with exertion) and non-productive cough; Denies: productive cough GI: Denies: abdominal pain, nausea, vomiting, diarrhea, constipation or hematochezia : Denies: flank pain, difficulty urinating, dysuria or hematuria Musc: Denies: neck pain, back pain or extremity swelling Skin/Breast: Denies: rash or new lesions Neuro: Reports: headache(s); Denies: numbness in extremities or weakness in extremities PFS ED PFSH: Medical History No pertinent past medical history Psychiatric care Surgical History No history of previous surgery Family History Family/Other Cancer stomach Social History Smoking and tobacco status: former smoker Quit status (tobacco): has quit using tobacco Year quit tobacco: 2019 Second hand smoke exposure: No Alcohol intake: current Alcohol intake frequency: few times a week Marital status: Life Partner Current occupational status: unemployed History of recent travel: No Physical Exam Const: COMMON NORMALS: no acute distress, patient oriented x3, healthy appearing and alert GENERAL APPEARANCE: cooperative and comfortable HENMT: COMMON NORMALS: normocephalic HEAD & SCALP: normocephalic MOUTH: Normal oral and palatal mucosa present THROAT: posterior oropharynx normal and uvula midline Neck/C-Spine: COMMON NORMALS: supple GENERAL: Yes normal visual inspection Resp: COMMON NORMALS: normal respiratory effort, No retractions, No use of accessory muscles and clear to auscultation bilaterally EFFORT & INSPECTION: Yes able to speak in complete sentences, No tachypneic, No respiratory distress and No Actively coughing AUSCULTATION: clear to auscultation bilaterally Cardio: COMMON NORMALS: regular rate, regular rhythm, S1 normal heart sound present, S2 normal heart sound present, No gallops present (Cardio), No clicks present (Cardio), No murmurs present (Cardio) and Peripheral pulses 2+ throughout RATE: regular rate RHYTHM: regular rhythm HEART SOUNDS: S1 normal heart sound present and S2 normal heart sound present PERIPHERAL PULSES: Peripheral pulses 2+ throughout GI: COMMON NORMALS: Normal to inspection, nondistended, normoactive bowel sounds present, Soft to palpation, non-tender and no masses PALPATION: Yes Soft to palpation : COMMON NORMALS: Yes no CVA tenderness BLADDER/KIDNEY EXAM: Yes no CVA tenderness Back/Pelvis: COMMON NORMALS: no CVA tenderness Extremity: COMMON NORMALS: normal to inspection Neuro: COMMON NORMALS: patient oriented x3 and moves all extremities SENSORIUM/ORIENTATION: Yes alert Skin: GENERAL SKIN EXAM: dry skin Course Vital Signs: Vital signs: Vital Signs Temperature 98.3 F 07/31/21 23:16 Pulse Rate 72 08/01/21 00:43 Respiratory Rate 14 08/01/21 00:43 Blood Pressure 106/74 08/01/21 00:43 Pulse Oximetry 95 08/01/21 00:43 MDM - URI/Sore Throat Medical Decision Making Patient is a 31-year-old male who comes to the ED with Covid symptoms. Her his girlfriend tested positive for COVID-19 yesterday. Vitals are stable. Exam is benign and patient is in no acute distress or pain. No signs of any respiratory distress. lungs are clear to auscultation bilaterally. Influenza negative COVID-19 test is pending. Chest x-ray showed no acute findings. Patient was diagnosed with viral syndrome and discharged home. He was told to follow-up with his PCP in 5 to 7 days for reevaluation. Return to ED precautions given. He was told to contact [facility] to get the COVID-19 test results in the next 24 to 48 hours. Patient understood and agreed with plan. Lab Data I reviewed the patient's lab results. Radiology Impressions Chest X-Ray 07/31/21 23:30 IMPRESSION: No acute findings. Laboratory Results Influenza Type A Ag Negative (Negative) 07/31/21 23:40 Influenza Type B Ag Negative (Negative) 07/31/21 23:40 Discharge Plan Discharge Patient Disposition: Home Clinical Impression: Viral syndrome Condition: Stable Prescriptions: No Action trazodone 50 mg tablet 100 mg PO .HS PRN (Reason: insomnia) Qty: 60 2RF fluoxetine [Prozac] 20 mg capsule 20 mg PO DAILY Qty: 30 2RF celecoxib 100 mg capsule 100 mg PO BID PRN (Reason: pain) 0RF Label Comments: Patient states not using this medicine. cyclobenzaprine 10 mg tablet 10 mg PO BID PRN (Reason: muscle spasm) 0RF Label Comments: Patient states not using this medicine. Discharge Orders: Discharge ED (Routine); Ordered 08/01/21 Ordered By: Dann Solorzano Discharge Diet: Regular Discharge Activity: Increase activity as tolerated Patient Instructions: Viral Syndrome (ED), COVID-19 (Coronavirus Disease 2019) (ED) Activity Restrictions/Additional Instructions: Follow-up with medical provider as directed in 5 to 7 days reevaluation. Your COVID-19 test is pending and should be back within the next 24 to 48 hours. Call [facility] within the next couple days to get results. Drink plenty of fluids and stay hydrated. Take [id number] Tylenol or Motrin for any fever, pain or headaches. Return to the ER or your medical provider if condition worsens. Please read and understand discharge instructions. Thank you for choosing [facility] for your healthcare needs today. Please realize this is an emergency room and that we are providing you with a medical screening exam and this may not be complete and all inclusive of all the testing and or work up that you may need to determine your ailment or severity of your illness. It is very important that you follow up as instructed or that you return to the Emergency Department should you have concerns or if your condition changes or worsens in any way. Coding Level of Care Code ED Slasher Tender for Bj Anna Exam Comprehensive
[2021-07-31] MEDS: ketorolac 60 mg/2 mL INJ IM (23:39)
[2021-08-01 00:10] LABS: Influenza A by IFA Negative (Negative); Influenza B by IFA Negative (Negative)
[2021-08-01 00:43] VITALS: BP 106/74; PULSE 72; RESP 14; O2SAT 95
[2021-08-03 19:29] LABS: Quest SARS-CoV-2 RNA DETECTED (NOT DETECTED)
== END 2021-08-01 00:44 | disposition home or self-care (01) ==
PROVIDERS: Emergency Provider Physician Assistant
DX: U07.1 COVID-19 (principal); Z87.891 Personal history of nicotine dependence
CPT/HCPCS: 71045; 87635; 87804; 96372; 99283; J1885

== ENCOUNTER 2021-10-29 08:27 | Emergency (ER) | payer MEDICARE, MEDICAID, SELFPAY ==
[2021-10-29 08:34] VITALS: BP 123/90; PULSE 78; RESP 16; TEMP 36.5; O2SAT 97; BMI 36.6
--- NOTE | 2021-10-29 09:14 | XR_ITS ---
WS: [id number] Right shoulder, 3 views, 10/29/2021 Clinical Data: shoulder pain Comparison: None. Findings: No fractures or dislocations are seen. The AC joint is normal. The adjacent right clavicle, right sca pula and ribs are normal. The soft tissues are unremarkable. There is an osteochondroma of the proximal lateral right humerus. XR/XR shoulder RT min 2V* [id number] Impression: 1. Negative right shoulder. 2. Incidental proximal right humeral osteochondroma.
--- NOTE | 2021-10-29 09:14 | CT_ITS ---
WS: [id number] CT HEAD TECHNIQUE: Noncontrast CT of the head obtained from the skullbase to the vertex. CLINICAL INFORMATION: R sided pain COMPARISON: October 09, 2020 DLP: 824.[address] scans at [facility] use at least one of these dose optimization techniques: automated e xposure control; mA and/or kV adjustment per patient size (includes targeted exams where dose is matc hed to clinical indication); or iterative reconstruction. FINDINGS: No evidence of intracranial hemorrhage or mass effect. Ventricular system and basal cisterns are contreras nt. No extra-axial fluid collections. No evidence of mass or mass effect. Normal marks-white differen tiation. Paranasal sinuses and mastoid air cells are well aerated. Mild mucosal thickening ethmoid air cells. Normal visualized soft tissues. CT/CT head wo con* [id number] IMPRESSION: 1. No evidence of intracranial hemorrhage or mass effect. 2. Normal marks-white differentiation. 3. Mild mucosal thickening ethmoid air cells. 4. No acute intracranial findings.
--- NOTE | 2021-10-29 09:16 | ED_ITS ---
HPI - Extremity Problem General: Chief complaint: Extremity Problem,Nontraumatic Stated complaint: Right pain in arm, back, shoulder, and leg Time Seen by Provider: 10/29/21 08:29 Source: patient Mode of arrival: ambulatory Limitations: no limitations History of Present Illness: 31-year-old female presents to the emergency room with complaints of right arm and leg pain particularly his right shoulder. He has had this pain evidently for several months it was worse this morning he cannot recall any particular trauma or injury. He has not had any other surgeries on the shoulder or leg no previous imaging of his back or head no known history of stroke or closed head injury or brain injury. He has not had any vomiting with this he is not had any change in vision or hearing. MD Complaint: extremity pain Onset (ago): month(s) Pain Consistency: intermittent Location: right, upper extremity and lower extremity Quality: aching Radiation: distal Relieving factors: nothing Exacerbating factors: nothing Associated symptoms: Deny chest pain, fever(s) or rash Review of Systems Const: Denies: fever(s), chills, body aches, change in appetite, fatigue or malaise ENMT: Denies: throat pain, ear or mastoid pain, nasal discharge or nasal congestion Card: Denies: chest pain, edema, dyspnea on exertion or orthopnea Resp: Denies: dyspnea, productive cough or non-productive cough GI: Denies: abdominal pain, nausea, vomiting, hematemesis, coffee ground emesi s, diarrhea, constipation, bloating, hematochezia or melena : Denies: flank pain, dysuria, urinary frequency or urinary urgency Skin/Breast: Denies: rash or pruritus [facility] ED PFSH: Medical History No pertinent past medical history Psychiatric care Surgical History No history of previous surgery Family History Family/Other Cancer stomach Social History Smoking and tobacco status: former smoker Quit status (tobacco): has quit using tobacco Year quit tobacco: 2019 Second hand smoke exposure: No Alcohol intake: current Alcohol intake frequency: few times a week Marital status: Life Partner Current occupational status: unemployed History of recent travel: No Physical Exam Const: COMMON NORMALS: no acute distress GENERAL APPEARANCE: cooperative and comfortable ORIENTATION/CONSCIOUSNESS: Yes awake, Yes oriented to person, Yes oriented to place and Yes oriented to time HENMT: COMMON NORMALS: normocephalic, atraumatic and hearing grossly normal bilaterally HEAD & SCALP: normocephalic and atraumatic Eye: COMMON NORMALS: Equal, round and reactive pupils present, EOMs intact bilaterally, conjunctivae normal and no scleral icterus CONJUNCTIVA: Yes conjunctivae normal PUPIL: Yes Equal, round and reactive pupils present Neck/C-Spine: COMMON NORMALS: no JVD Resp: COMMON NORMALS: normal respiratory effort, No retractions, No use of accessory muscles and clear to auscultation bilaterally AUSCULTATION: clear to auscultation bilaterally Cardio: COMMON NORMALS: no JVD, regular rate, regular rhythm and No murmurs present (Cardio) RATE: regular rate RHYTHM: regular rhythm GI: COMMON NORMALS: Soft to palpation and No hepatosplenomegaly present AUSCULTATION: Yes normoactive bowel sounds PALPATION: Yes Soft to palpation, No Tenderness to palpation present (GI), No Guarding due to palpation present (GI) and Yes No hepatosplenomegaly present Extremity: COMMON NORMALS: normal to inspection, capillary refill normal, no clubbing, cyanosis or edema, no calf tenderness and no pedal edema Neuro: SENSORIUM/ORIENTATION: Yes oriented to person, Yes oriented to place and Yes oriented to time OTHER: No arm drift normal strength in lower upper and lower extremities bilaterally. Patient reports lites sensation diminished on the right arm and leg compared to the left. No obvious deformities no ataxia. Skin: COMMON NORMALS: no rashes or lesions noted GENERAL SKIN EXAM: no rashes or lesions noted Course Vital Signs: Vital signs: Vital Signs Temperature 97.7 F 10/29/21 08:34 Pulse Rate 78 10/29/21 08:34 Respiratory Rate 16 10/29/21 08:34 Blood Pressure 123/90 10/29/21 08:34 Pulse Oximetry 97 10/29/21 08:34 MDM - Extremity (Nontraumatic) Medical Decision Making Patient continues to have right shoulder pain we will give him dexamethasone and ketorolac discharge him home on prednisone taper and p.o. diclofenac. He is had this for several months there is no trauma involved imaging unremarkable. We will discharge him home and set him up for follow-up with orthopedics and n eurology. Medical Records I reviewed the patient's medical records. Lab Data I reviewed the patient's lab results. : 10/29/21 10:15 10/29/21 10:[address] 10/29/21 09:14 IMPRESSION: 1. No evidence of intracranial hemorrhage or mass effect. 2. Normal marks-white differentiation. 3. Mild mucosal thickening ethmoid air cells. 4. No acute intracranial findings. Shoulder X-Ray 10/29/21 09:14 Impression: 1. Negative right shoulder. 2. Incidental proximal right humeral osteochondroma. Laboratory Results WBC 5.1 10^3/uL (4.0-10.0) 10/29/21 10:15 RBC 5.15 10^6/uL (4.1-5.3) 10/29/21 10:15 Hgb 15.7 g/dL (11.7-16.6) 10/29/21 10:15 Hct 46.2 % (42.0-52.0) 10/29/21 10:15 MCV 89.7 fl (80-94) 10/29/21 10:15 MCH 30.5 pg (28.0-34.0) 10/29/21 10:15 MCHC 34.0 g/dL (30.0-36.0) 10/29/21 10:15 RDW 11.9 % (12.1-15.1) L 10/29/21 10:15 Plt Count 176 10^3/cmm (130-400) 10/29/21 10:15 MPV 11.2 fL (7.4-10.4) H 10/29/21 10:15 Neut % (Auto) 55.1 % 10/29/21 10:15 Lymph % (Auto) 31.8 % 10/29/21 10:15 [place] % (Auto) 8.0 % 10/29/21 10:15 Eos % (Auto) 3.9 % 10/29/21 10:15 Baso % (Auto) 1.0 % 10/29/21 10:15 Neut # (Auto) 2.81 10^3/uL (1.8-7.7) 10/29/21 10:15 Lymph # (Auto) 1.6 10^3/uL (0.8-4.8) 10/29/21 10:15 [place] # (Auto) 0.4 10^3/uL (0.2-0.9) 10/29/21 10:15 Eos # (Auto) 0.2 10^3/uL (0.0-0.8) 10/29/21 10:15 Baso # (Auto) 0.1 10^3/uL (0.0-0.1) 10/29/21 10:15 Nucleated RBC % (auto) 0 % 10/29/21 10:15 Nucleated RBCs # 0.0 /100WBC 10/29/21 10:15 ESR 1 mm/hr (0-10) 10/29/21 10:15 Sodium 141 mmol/L (136-145) 10/29/21 10:15 Potassium 3.9 mmol/L (3.5-5.1) 10/29/21 10:15 Chloride 106 mmol/L (98-107) 10/29/21 10:15 Carbon Dioxide 26 mmol/L (22-29) 10/29/21 10:15 Anion Gap 12.9 (5-19) 10/29/21 10:15 BUN 21 mg/dL (6-20) H 10/29/21 10:15 Creatinine 0.8 mg/dL (0.7-1.2) 10/29/21 10:15 GFR Calculation 114.3 mL/min (90-130) 10/29/21 10:15 Glucose 99 mg/dL (65-115) 10/29/21 10:15 Calculated Osmolality 295 mOsm/kg (285-295) 10/29/21 10:15 Calcium 9.2 mg/dL (8.5-10.5) 10/29/21 10:15 Total Bilirubin 0.4 mg/dL (0.15-1.2) 10/29/21 10:15 AST 18 U/L (0-40) 10/29/21 10:15 ALT 22 U/L (0-41) 10/29/21 10:15 Alkaline Phosphatase 66 IU/L (40-130) 10/29/21 10:15 Creatine Kinase 123 U/L (39-308) 10/29/21 10:15 C-Reactive Protein 3.0 mg/L (0.0-4.9) 10/29/21 10:15 Total Protein 7.1 g/dL (6.6-8.7) 10/29/21 10:15 Albumin 4.5 g/dL (3.5-5.2) 10/29/21 10:15 Globulin 2.6 g/dL (1.3-4.6) 10/29/21 10:15 Discharge Plan Discharge Patient Disposition: Home Clinical Impression: Chronic pain in right shoulder, Right leg pain Condition: Stable Prescriptions: New prednisone 20 mg tablet 20 mg PO TID Qty: 15 0RF Rx Instructions: 1 p.o. 3 times daily x3 days, 1 p.o. twice daily x2 days, 1 p.o. daily x2 days diclofenac sodium 75 mg tablet,delayed release (DR/EC) 75 mg PO Q12H PRN (Reason: pain) Qty: 20 0RF No Action trazodone 50 mg tablet 100 mg PO .HS PRN (Reason: insomnia) Qty: 60 2RF fluoxetine [Prozac] 20 mg capsule 20 mg PO DAILY Qty: 30 2RF Discharge Orders: Discharge ED (Routine); Ordered 10/29/21 Ordered By: Bartolo Diaz Discharge Diet: Usual diet Discharge Activity: Resume usual activity Activity Restrictions/Additional Instructions: Case management make arrangements for you to follow-up with orthopedics and neurology. Coding Level of Care Code ED Show Host for Bj Fwd Exam Comprehensive
[2021-10-29 10:28] LABS: Basophils # 0.1 10^3/uL (0.0-0.1); Eosinophils # 0.2 10^3/uL (0.0-0.8); Eosinophils % 3.9 %; Hematocrit 46.2 % (42.0-52.0); Hemoglobin 15.7 g/dL (11.7-16.6); Lymphocytes # 1.6 10^3/uL (0.8-4.8); Lymphocytes % 31.8 %; Mean Corpuscular Hemoglobin 30.5 pg (28.0-34.0); Mean Corpuscular Volume 89.7 fl (80-94); Mean Platelet Volume 11.2 fL (7.4-10.4); Monocytes # 0.4 10^3/uL (0.2-0.9); Neutrophils # 2.81 10^3/uL (1.8-7.7); Neutrophils % 55.1 %; Nucleated Red Blood Cells % 0 %; Platelet Count 176 10^3/cmm (130-400); Red Blood Count 5.15 10^6/uL (4.1-5.3); Red Cell Distribution Width 11.9 % (12.1-15.1); White Blood Count 5.1 10^3/uL (4.0-10.0)
[2021-10-29 10:29] LABS: Erythrocyte Sedimentation Rate 1 mm/hr (0-10)
[2021-10-29 10:44] LABS: Alanine Aminotransferase 22 U/L (0-41); Albumin Level 4.5 g/dL (3.5-5.2); Alkaline Phosphatase 66 IU/L (40-130); Anion Gap 12.9 (5-19); Aspartate Amino Transferase 18 U/L (0-40); Blood Urea Nitrogen 21 mg/dL (6-20); Calcium 9.2 mg/dL (8.5-10.5); Carbon Dioxide 26 mmol/L (22-29); Chloride 106 mmol/L (98-107); Creatine Phosphokinase 123 U/L (39-308); Globulin 2.6 g/dL (1.3-4.6); Glomerular Filtration Rate 114.3 mL/min (90-130); Glucose 99 mg/dL (65-115); Osmolality Calculated 295 mOsm/kg (285-295); Potassium 3.9 mmol/L (3.5-5.1); Sodium 141 mmol/L (136-145); Total Bilirubin 0.4 mg/dL (0.15-1.2); Total Protein 7.1 g/dL (6.6-8.7)
[2021-10-29] MEDS: dexamethasone 10 mg/mL INJ IVP (12:10)
[2021-10-29] MEDS: ketorolac 30 mg/mL INJ IVP (12:15)
--- NOTE | 2021-10-30 09:33 | DCPLANNER ---
Addendum entered by Sobeida King 01/14/22 11:11: Patient had a follow up appointment scheduled with ortho - patient did attend appointment. Addendum entered by Sobeida King 11/05/21 15:37: Patient has a follow up appointment scheduled for Tuesday, January 04, 2022 at 2:[address] Dumont at ortho. Clinic will call patient with appointment information. Original Note: care transition manager had message to schedule a follow up appointment for patient with ortho and neurology. care transition manager sent patients information to the front office staff at both ortho and neurology. Patients information will be printed and reviewed. Clinic will call patient with appointment information.
== END 2021-10-29 12:25 | disposition home or self-care (01) ==
PROVIDERS: Emergency Provider Family Medicine
DX: G89.29 Other chronic pain (principal); M79.604 Pain in right leg; Z87.891 Personal history of nicotine dependence; M25.511 Pain in right shoulder
CPT/HCPCS: 70450; 73030; 80053; 82550; 85025; 85651; 86140; 96374; 96375; 99284; J1100; J1885

== ENCOUNTER → 2022-01-04 14:09 | Outpatient (BNVA) | payer MEDICARE, MEDICAID, SELFPAY | PROVIDERS: Referring Provider Family Medicine; Visit Provider Specialist | DX: Z11.52 Encounter for screening for COVID-19 (principal); Z20.822 Contact with and (suspected) exposure to COVID-19; M25.511 Pain in right shoulder; R07.89 Other chest pain; D16.01 Benign neoplasm of scapula and long bones of right upper limb | CPT/HCPCS: 73030; 87635; 99204 ==

== ENCOUNTER → 2022-01-06 18:05 | Outpatient (BNVA) | payer MEDICARE, MEDICAID, SELFPAY | PROVIDERS: Visit Provider Registered Nurse Neonatal Intensive Care | DX: Z20.822 Contact with and (suspected) exposure to COVID-19 (principal) | CPT/HCPCS: 87426 ==

== ENCOUNTER 2022-04-13 12:11 | Outpatient (CLI) | payer MEDICARE, MEDICAID, SELFPAY ==
--- NOTE | 2022-04-13 12:30 | CT_ITS ---
WS: [id number] CT CHEST TECHNIQUE: Noncontrast CT of the chest with coronal and sagittal reformatted images. CLINICAL INFORMATION: pain to right lateral ribs COMPARISON: None. DLP: 749.[address] scans at [facility] use at least one of these dose optimization techniques: automated e xposure control; mA and/or kV adjustment per patient size (includes targeted exams where dose is matc hed to clinical indication); or iterative reconstruction. FINDINGS: Both lungs are well aerated. No acute pulmonary infiltrates. No focal pneumonia or pleural fluid. A few calcified granulomas. No suspicious pulmonary parenchymal opacities. Visualized RIGHT ri bs are normal in appearance. No visualized acute rib fractures. Normal caliber thoracic aorta. No mediastinal or hilar lymphadenopathy. No axillary lymphadenopathy. Normal GE junction. Aberrant RIGHT subclavian artery with retro- esophageal course. Normal caliber de scending thoracic aorta. Adrenal glands are normal. CT/CT chest wo con [id number] IMPRESSION: 1. No acute pulmonary infiltrates. No suspicious pulmonary parenchymal opaciti es. 2. No mediastinal or hilar lymphadenopathy. 3. Normal visualized ribs. 4. Aberrant RIGHT subclavian artery with retroesophageal course. 5. No other suspicious findings.
== END 2022-04-13 12:12 | disposition home or self-care (01) ==
LOC: RAD 12:12
PROVIDERS: Visit Provider Specialist
DX: R07.89 Other chest pain (principal); Q27.8 Other specified congenital malformations of peripheral vascular system
CPT/HCPCS: 71250

== ENCOUNTER → 2022-04-26 12:54 | Outpatient (BNVA) | payer MEDICARE, SELFPAY | PROVIDERS: Visit Provider Specialist | DX: D16.01 Benign neoplasm of scapula and long bones of right upper limb (principal); R20.0 Anesthesia of skin | CPT/HCPCS: 99213 ==

== ENCOUNTER → 2022-10-12 15:00 | Outpatient (BNVA) | payer MEDICARE, MEDICAID, SELFPAY | PROVIDERS: PCP Nurse Practitioner Family; Visit Provider Specialist | DX: G56.01 Carpal tunnel syndrome, right upper limb (principal); G56.21 Lesion of ulnar nerve, right upper limb | CPT/HCPCS: 95908; 95910 ==

== ENCOUNTER → 2022-10-27 15:11 | Outpatient (BNVA) | payer MEDICARE, MEDICAID, SELFPAY | PROVIDERS: PCP Nurse Practitioner Family; Visit Provider Specialist | DX: G56.21 Lesion of ulnar nerve, right upper limb (principal) | CPT/HCPCS: 99213 ==

== ENCOUNTER → 2022-11-03 13:20 | Outpatient (BNVA) | payer MEDICARE, MEDICAID, SELFPAY | PROVIDERS: PCP Nurse Practitioner Family; Visit Provider Specialist | DX: G56.21 Lesion of ulnar nerve, right upper limb (principal); G56.01 Carpal tunnel syndrome, right upper limb | CPT/HCPCS: 73030; 99214 ==

== ENCOUNTER 2022-12-02 00:15 | Emergency (ER) | payer MEDICARE, MEDICAID, SELFPAY ==
--- NOTE | 2022-12-02 00:17 | XRR_ITS ---
PROCEDURE INFORMATION: Exam: XR Chest Exam date and time: 12/02/2022 12:29 AM Age: 32 years old Clinical indication: Pain; Chest pressure; Additional info: Cp TECHNIQUE: Imaging protocol: Radiologic exam of the chest. Views: 1 view. COMPARISON: CT chest con [id number] 04/13/2022 12:36 PM FINDINGS: Tubes, catheters and devices: EKG monitoring leads overlie the thoracic wall. Lungs: No pulmonary consolidation. Pleural spaces: No pleural effusion or pneumothorax. Heart/Mediastinum: Normal in size. Bones/joints: No acute fracture is identified. XR/XR chest 1V portable [id number] IMPRESSION: No acute findings.
[2022-12-02 00:19] VITALS: BP 138/99; PULSE 76; RESP 20; TEMP 36.9; O2SAT 97; BMI 33.0
--- NOTE | 2022-12-02 00:21 | ECG_ITS ---
[facility] Test Date: 2022-12-02 Pat Name: Virgilio Maurice Department: Room: Gender: Male [employer]: : 1990 Requested By: Cristian Conner Order Number: [id number] Blake MD: Harini Chua M.D. Measurements Intervals [place] Rate: 87 P: 44 [place]: 163 QRS: 74 QRSD: 90 T: 46 QT: 340 QTc: 410 Interpretive Statements SINUS RHYTHM No previous ECG available for comparison Electronically Signed On 12-02-2022 10:32:22 CDT by Harini Chua M.D. [email or web address]
[2022-12-02 00:22] VITALS: BP 130/82; PULSE 72; RESP 15; O2SAT 97
--- NOTE | 2022-12-02 00:25 | ED_ITS ---
HPI - Chest Pain General: Chief Complaint: Chest Pain Stated Complaint: Chest pain Time Seen by Provider: 12/02/22 00:18 Source: patient Mode of arrival: ambulatory Limitations: no limitations History of Present Illness: 32-year-old male states he has been having chest pain since noon today states he was helping someone move stuff out of a hot barn he states he felt like it got overheated and he has been having sharp chest pains ever since he states it is worse with palpation he denies any shortness of breath denies any radiation of his pain and pain is currently a 5 out of 10. Denies any vomiting or diarrhea Associated symptoms: Deny abdominal pain, dyspnea, fever(s), nausea or vomiting Review of Systems Const: Denies: fever(s), chills, body aches or change in appetite Eyes: Denies: blurry vision or eye discomfort ENMT: Denies: throat pain or dental pain Card: Reports: chest pain Resp: Denies: dyspnea GI: Denies: abdominal pain, nausea, vomiting or diarrhea : Denies: dysuria Musc: Denies: neck pain or back pain Skin/Breast: Denies: rash Neuro: Denies: headache(s) PFSH ED PFSH: Medical History No pertinent past medical history Psychiatric care URI (upper respiratory infection) Surgical History No history of previous surgery Family History Family/Other Cancer stomach Social History Smoking and tobacco status: former smoker (current chewing tobaccoo user) Quit status (tobacco): has quit using tobacco Year quit tobacco: 2019 Second hand smoke exposure: No Alcohol intake: current Alcohol intake frequency: few times a week Substance/Drug Use: never Marital status: Life Partner Current occupational status: unemployed Physical Exam Const: COMMON NORMALS: no acute distress, patient oriented x3 and healthy appearing HENMT: COMMON NORMALS: normocephalic and atraumatic HEAD & SCALP: normocephalic and atraumatic Eye: COMMON NORMALS: conjunctivae normal CONJUNCTIVA: Yes conjunctivae normal Neck/C-Spine: COMMON NORMALS: full ROM and supple Chest: COMMONS NORMALS: normal inspection of the chest OTHER: point tender in center of chest reproduces pain Resp: COMMON NORMALS: normal respiratory effort, No retractions, No use of accessory muscles and clear to auscultation bilaterally AUSCULTATION: clear to auscultation bilaterally Cardio: COMMON NORMALS: regular rate, regular rhythm and No murmurs present (Cardio) RATE: regular rate RHYTHM: regular rhythm GI: COMMON NORMALS: Normal to inspection, nondistended, normoactive bowel so unds present, Soft to palpation, non-tender and no masses PALPATION: Yes Soft to palpation Extremity: COMMON NORMALS: normal to inspection and full ROM Neuro: COMMON NORMALS: patient oriented x3, moves all extremities and no focal motor deficits Psych: COMMON NORMALS: mental status grossly normal, Normal thought process present and cooperative THOUGHT PROCESS: Normal thought process present Skin: COMMON NORMALS: no rashes or lesions noted and no wounds GENERAL SKIN EXAM: no rashes or lesions noted Course Vital Signs: Vital signs: Vital Signs Temperature 98.5 F 12/02/22 00:19 Pulse Rate 72 12/02/22 00:22 Respiratory Rate 14 12/02/22 00:39 Blood Pressure 130/82 12/02/22 00:22 Pulse Oximetry 97 12/02/22 00:39 Oxygen Delivery Me thod Room Air 12/02/22 00:22 MDM - Chest Pain Medical Decision Making Patient presents for chest pain is likely chest wall pain as he is point tender EKG x-ray and blood work here is normal no signs of acute coronary syndrome. Patient is stable for discharge we will prescribe Naprosyn he is to follow-up his PCP and return if worsening. Medical Records I reviewed the patient's medical records. Lab Data I reviewed the patient's lab results. 12/02/22 00:28 12/02/22 00:28 Laboratory Results WBC 9.3 10^3/uL (4.0-10.0) 12/02/22 00:28 RBC 5.08 10^6/uL (4.1-5.3) 12/02/22 00:28 Hgb 15.5 g/dL (11.7-16.6) 12/02/22 00:28 Hct 46.5 % (42.0-52.0) 12/02/22 00: MCV 91.5 fl (80-94) 12/02/22 00: MCH 30.5 pg (28.0-34.0) 12/02/22 00: MCHC 33.3 g/dL (30.0-36.0) 12/02/22 00: RDW 11.9 % (12.1-15.1) L 12/02/22 00: Plt Count 208 10^3/cmm (130-400) 12/02/22 00: MPV 10.4 fL (7.4-10.4) 12/02/22 00: Neut % (Auto) 49.5 % 12/02/22 00: Lymph % (Auto) 39.4 % 12/02/22 00: [place] % (Auto) 6.8 % 12/02/22 00: Eos % (Auto) 3.2 % 12/02/22 00: Baso % (Auto) 0.8 % 12/02/22 00: Neut # (Auto) 4.60 10^3/uL (1.8-7.7) 12/02/22 00: Lymph # (Auto) 3.7 10^3/uL (0.8-4.8) 12/02/22 00: [place] # (Auto) 0.6 10^3/uL (0.2-0.9) 12/02/22 00: Eos # (Auto) 0.3 10^3/uL (0.0-0.8) 12/02/22 00: Baso # (Auto) 0.1 10^3/uL (0.0-0.1) 12/02/22 00: Nucleated RBC % (auto) 0 % 12/02/22 00: Nucleated RBCs # 0.0 /100WBC 12/02/22 00: Sodium 143 mmol/L (136-145) 12/02/22 00: Potassium 4.2 mmol/L (3.5-5.1) 12/02/22 00: Chloride 107 mmol/L (98-107) 12/02/22 00: Carbon Dioxide 28 mmol/L (22-29) 12/02/22 00: Anion Gap 12.2 (5-19) 12/02/22 00:28 BUN 17 mg/dL (6-20) 12/02/22 00:28 Creatinine 1.0 mg/dL (0.7-1.2) 12/02/22 00:28 GFR Calculation 87.7 mL/min (90-130) L 12/02/22 00:28 Glucose 83 mg/dL (65-115) 12/02/22 00:28 Calculated Osmolality 297 mOsm/kg (285-295) H 12/02/22 00:28 Calcium 9.4 mg/dL (8.5-10.5) 12/02/22 00:28 Total Bilirubin 0.2 mg/dL (0.15-1.2) 12/02/22 00:28 AST 16 U/L (0-40) 12/02/22 00:28 ALT 23 U/L (0-41) 12/02/22 00:28 Alkaline Phosphatase 74 U/L (40-130) 12/02/22 00:28 Troponin T Baseline 6 ng/L (0-15) 12/02/22 00:28 Total Protein 6.6 g/dL (6.6-8.7) 12/02/22 00:28 Albumin 4.5 g/dL (3.5-5.2) 12/02/22 00:28 Globulin 2.1 g/dL (1.3-4.6) 12/02/22 00:28 Imaging Data CXR: I personally reviewed and interpreted this imaging study as follows: My impression: no acute abnormality EKG Data EKG 1: I personally reviewed and interpreted this EKG as follows: EKG interpretation date: 12/02/22 EKG interpretation time: 00:21 Interpretation: nsr hr [address] or t wave abnormalities qrs 90 qtc 384 Discharge Plan Discharge Patient Disposition: Home Clinical Impression: Chest wall pain Condition: Stable Prescriptions: New Naprosyn 500 mg tablet 500 mg PO BID PRN (Reason: pain) Qty: 20 0RF No Action fluoxetine 40 mg capsule 40 mg PO QAM Qty: 30 2RF Rx Instructions: Take one capsule by mouth every morning melatonin 3 mg tablet See Rx Instructions PO .q hs Qty: 60 1RF Rx Instructions: Take one to two tablets daily at bedtime, one hour before sleep Discharge Orders: Discharge ED (Routine); Ordered 12/02/22 Ordered By: Cristian Conner Referrals: Robert Meadows [Primary Care Provider] - 1-3 days Discharge Diet: Advance as tolerated Discharge Activity: Resume usual activity Patient Instructions: Chest Wall Pain (ED) Coding Level of Care Code ED Potash Flaker for Bj Anna
[2022-12-02] MEDS: sodium chloride 0.9% 1,000 ML 999 ML IV (00:36)
[2022-12-02] MEDS: ondansetron 2 mg/ML SDV 2 mL 4 MG IVP (00:37)
[2022-12-02 00:38] LABS: Basophils # 0.1 10^3/uL (0.0-0.1); Basophils % 0.8 %; Eosinophils # 0.3 10^3/uL (0.0-0.8); Eosinophils % 3.2 %; Hematocrit 46.5 % (42.0-52.0); Hemoglobin 15.5 g/dL (11.7-16.6); Lymphocytes # 3.7 10^3/uL (0.8-4.8); Lymphocytes % 39.4 %; Mean Corpuscular HGB Conc 33.3 g/dL (30.0-36.0); Mean Corpuscular Hemoglobin 30.5 pg (28.0-34.0); Mean Corpuscular Volume 91.5 fl (80-94); Mean Platelet Volume 10.4 fL (7.4-10.4); Monocytes # 0.6 10^3/uL (0.2-0.9); Monocytes % 6.8 %; Neutrophils % 49.5 %; Nucleated Red Blood Cells % 0 %; Platelet Count 208 10^3/cmm (130-400); Red Blood Count 5.08 10^6/uL (4.1-5.3); Red Cell Distribution Width 11.9 % (12.1-15.1); White Blood Count 9.3 10^3/uL (4.0-10.0)
[2022-12-02 00:39] VITALS: RESP 14; O2SAT 97
[2022-12-02] MEDS: morphine 4 mg/mL SDV 1 mL IVP (00:39)
[2022-12-02 00:56] LABS: Troponin(5th) Baseline 6 ng/L (0-15)
[2022-12-02 00:59] LABS: Alanine Aminotransferase 23 U/L (0-41); Albumin Level 4.5 g/dL (3.5-5.2); Alkaline Phosphatase 74 U/L (40-130); Anion Gap 12.2 (5-19); Aspartate Amino Transferase 16 U/L (0-40); Blood Urea Nitrogen 17 mg/dL (6-20); Calcium 9.4 mg/dL (8.5-10.5); Carbon Dioxide 28 mmol/L (22-29); Chloride 107 mmol/L (98-107); Globulin 2.1 g/dL (1.3-4.6); Glomerular Filtration Rate 87.7 mL/min (90-130); Glucose 83 mg/dL (65-115); Osmolality Calculated 297 mOsm/kg (285-295); Potassium 4.2 mmol/L (3.5-5.1); Sodium 143 mmol/L (136-145); Total Bilirubin 0.2 mg/dL (0.15-1.2); Total Protein 6.6 g/dL (6.6-8.7)
[2022-12-02 01:18] VITALS: BP 113/73; PULSE 70; RESP 15; O2SAT 95
== END 2022-12-02 01:20 | disposition home or self-care (01) ==
PROVIDERS: Emergency Provider Emergency Medicine; PCP Nurse Practitioner Family
DX: R07.89 Other chest pain (principal); Z87.891 Personal history of nicotine dependence
CPT/HCPCS: 71045; 80053; 84484; 85025; 93005; 96361; 96374; 96375; 99285; J2270; J2405; J7030

== ENCOUNTER 2023-07-16 21:56 | Emergency (ER) | payer MEDICARE, MEDICAID, SELFPAY ==
[2023-07-16 22:00] VITALS: BP 126/79; PULSE 87; RESP 17; TEMP 36.7; O2SAT 97; BMI 32.5
--- NOTE | 2023-07-16 22:30 | CTR_ITS ---
PROCEDURE INFORMATION: Exam: CT Abdomen And Pelvis With Contrast Exam date and time: 07/16/2023 10:50 PM Age: 33 years old Clinical indication: Abdominal pain; Localized; Right lower quadrant (rlq); Patient HX: Rlq pain with diarrhea TECHNIQUE: Imaging protocol: Computed tomography of the abdomen and pelvis with contrast. Radiation optimization: All CT scans at this facility use at least one of these dose optimization techniques: automated exposure control; mA and/or kV adjustment per patient size (includes targeted exams where dose is matched to clinical indication); or iterative reconstruction. Contrast material: OMNI 350; Contrast volume: 100 ml; Contrast route: INTRAVENOUS (IV); COMPARISON: CT abdomen pelvis w con* [id number] 09/06/2020 10:38 PM RADIATION DOSE METRICS: Total DLP (mGy-cm): 747.61 FINDINGS: Liver: Normal. No mass. Gallbladder and bile ducts: Normal. No calcified stones. No ductal dilation. Pancreas: Normal. No ductal dilation. Spleen: Normal. No splenomegaly. Adrenal glands: Normal. No mass. Kidneys and ureters: No renal stones or obstruction. Stomach and bowel: The colon and small bowel are unremarkable. Appendix: The appendix is unchanged and unremarkable. Intraperitoneal space: No free fluid, free air or abscess. Vasculature: There is scattered soft plaque in the SMA but without significant stenosis. Lymph nodes: Unremarkable. No enlarged lymph nodes. Urinary bladder: Unremarkable as visualized. Reproductive: Unremarkable as visualized. Bones/joints: Unremarkable. No acute fracture. Soft tissues: Incidental 1 cm fatty umbilical hernia without inflammatory changes. CT/CT abdomen pelvis w con* [id number] IMPRESSION: No significant findings
[2023-07-16 22:39] LABS: Basophils # 0.1 10^3/uL (0.0-0.1); Basophils % 0.5 %; Eosinophils # 0.2 10^3/uL (0.0-0.8); Eosinophils % 1.3 %; Hematocrit 44.6 % (37-53); Lymphocytes # 2.2 10^3/uL (0.8-4.8); Lymphocytes % 19.8 %; Mean Corpuscular HGB Conc 34.3 g/dL (30-55); Mean Corpuscular Hemoglobin 30.6 pg (27-33); Mean Corpuscular Volume 89.2 fl (82-101); Mean Platelet Volume 10.5 fL (7.4-10.4); Monocytes # 0.8 10^3/uL (0.2-0.9); Monocytes % 7.4 %; Neutrophils # 7.98 10^3/uL (1.8-7.7); Neutrophils % 70.7 %; Nucleated Red Blood Cells % 0 %; Platelet Count 193 10^3/cmm (157-399); Red Cell Distribution Width 11.9 % (12.1-15.1); White Blood Count 11.29 10^3/uL (3.29-11.43)
[2023-07-16 22:40] VITALS: RESP 18
[2023-07-16] MEDS: ondansetron 2 mg/ML SDV 2 mL 4 MG IVP (22:40)
[2023-07-16] MEDS: morphine 4 mg/mL SDV 1 mL IVP (22:40)
[2023-07-16] MEDS: sodium chloride 0.9% 1,000 ML 999 ML IV (22:41)
[2023-07-16 22:45] VITALS: BP 113/73; PULSE 81; RESP 18; O2SAT 95
[2023-07-16 22:51] LABS: Alanine Aminotransferase 18 U/L (0-41); Albumin Level 4.4 g/dL (3.5-5.2); Alkaline Phosphatase 64 U/L (40-130); Anion Gap 13.9 (5-19); Aspartate Amino Transferase 16 U/L (0-40); Blood Urea Nitrogen 18 mg/dL (6-20); C Reactive Protein 14.2 mg/L (0.0-4.9); Calcium 9.1 mg/dL (8.5-10.5); Carbon Dioxide 25 mmol/L (22-29); Chloride 105 mmol/L (98-107); Globulin 2.5 g/dL (1.3-4.6); Glomerular Filtration Rate 131.5 mL/min (90-130); Glucose 109 mg/dL (65-115); Lipase 21 U/L (13-60); Osmolality Calculated 292 mOsm/kg (285-295); Potassium 3.9 mmol/L (3.5-5.1); Sodium 140 mmol/L (136-145); Total Bilirubin 0.5 mg/dL (0.15-1.2); Total Protein 6.9 g/dL (6.6-8.7)
[2023-07-16] MEDS: iohexol 350 mg/mL 500 mL Btl (per mL) IV (22:55)
[2023-07-16 23:15] VITALS: BP 120/72; PULSE 76; O2SAT 96
[2023-07-16 23:31] VITALS: BP 115/65; PULSE 84; O2SAT 97
[2023-07-16 23:42] LABS: Bilirubin Urine Neg (Negative); Blood Urine Neg (Negative); Glucose Urine UA Norm (Normal); Ketones Urine Negative (Negative); Nitrate Urine Negative (Negative); Protein Urine Neg (Negative); Sulfosalicylic Acid Urine Negative (Negative); Urine Appearance Clear (CLEAR); Urine Color Yellow (Yellow); Urobilinogen Urine Norm (Negative); pH Urine 8 (5-7)
--- NOTE | 2023-07-16 23:42 | ED_ITS ---
HPI - Abdominal Pain 2 General: Chief Complaint: Abdominal Pain Stated Complaint: ABD Pain Time Seen by Provider: 07/16/23 22:19 History of Present Illness: 33-year-old male with a history of diver ticulitis. He presents with right greater than left lower quadrant pain that woke him up this morning. It has been consistent all day. He had some diarrhea. No vomiting. No fever. No history of abdominal surgery. Associated Symptoms: Reports diarrhea and nausea; Denies fever(s) and vomiting Review of Systems 2 Const: Denies: fever(s) ENMT: Denies: throat pain Card: Denies: chest pain or palpitations Resp: Denies: dyspnea, productive cough or non-productive cough GI: Reports: abdominal pain, nausea and diarrhea; Denies: vomiting Musc: Denies: back pain PFSH ED 2 PFSH: Medical History URI (upper respiratory infection) Psychiatric care No pertinent past medical history Surgical History No history of previous surgery Family History Family/Other Cancer stomach Social History Smoking and tobacco/nicotine status: former use of tobacco/nicotine (current chewing tobaccoo user) Quit status (tobacco/nicotine): has quit using Year quit tobacco: 2020 Second hand smoke exposure: No Alcohol intake: current Alcohol intake frequency: few times a week Substance/Drug Use: never Marital status: Life Partner Current occupational status: unemployed Physical Exam 2 Const: COMMON NORMALS: no acute distress GENERAL APPEARANCE: cooperative; not ill appearing and not frail appearing HENMT: COMMON NORMALS: normocephalic, atraumatic and Normal external nose present HEAD & SCALP: normocephalic and atraumatic FACE & SINUS: normal facial exam and face symmetric NOSE: Normal external nose present Eye: COMMON NORMALS: Equal, round and reactive pupils present and EOMs intact bilaterally PUPIL: Yes Equal, round and reactive pupils present Neck/C-Spine: GENERAL: Yes trachea midline Chest: CHEST: Yes Symmetrical chest wall rise Resp: COMMON NORMALS: normal respiratory effort, No retractions, No use of accessory muscles and clear to auscultation bilaterally AUSCULTATION: clear to auscultation bilaterally Cardio: COMMON NORMALS: regular rate and regular rhythm RATE: regular rate RHYTHM: regular rhythm GI: COMMON NORMALS: Normal to inspection, nondistended, normoactive bowel sounds present PALPATION: Yes Tenderness to palpation present (GI) Details: RLQ Extremity: COMMON NORMALS: no pedal edema Neuro: EFREN COMA SCALE: document GCS findings Sondheimer coma scale eye opening: Spontaneous Efren coma scale verbal response: Orientated Sondheimer coma scale motor response: Obey commands Sondheimer coma scale total score: 15 S ENSORY EXAM: Yes extremities (intact) Psych: COMMON NORMALS: speech normal SPEECH: Yes normal speech Skin: COMMON NORMALS: no rashes or lesions noted GENERAL SKIN EXAM: no rashes or lesions noted Course 2 Vital Signs: Vital signs: Vital Signs Temperature 98.0 F 07/16/23 22:00 Pulse Rate 64 07/17/23 00:10 Respiratory Rate 18 07/17/23 00:10 Blood Pressure 99/62 07/17/23 00:10 Pulse Oximetry 96 07/17/23 00:10 Oxygen Delivery Me thod Room Air 07/17/23 00:09 MDM - Abdominal Pain Medical Decision Making White blood cell count is 11.3. CRP is 14. Liver enzymes are normal. Urinalysis is pending. CT scan is negative. Urinalysis not remarkable. Vitals are normal. He will be discharged home. Lab Data 07/16/23 22:28 07/16/23 22:28 Labs/Radiology: Radiology Impressions Abdomen/Pelvis CT 07/16/23 22:30 IMPRESSION: No significant findings Laboratory Results WBC 11.29 10^3/uL (3.29-11.43) 07/16/23 22:28 RBC 5.00 10^6/uL (3.85-5.65) 07/16/23 22:28 Hgb 15.30 g/dL (11.27-16.99) 07/16/23 22: Hct 44.6 % (37-53) 07/16/23 22:28 MCV 89.2 fl (82-101) 07/16/23 22: MCH 30.6 pg (27-33) 07/16/23 22: MCHC 34.3 g/dL (30-55) 07/16/23 22:28 RDW 11.9 % (12.1-15.1) L 07/16/23 22: Plt Count 193 10^3/cmm (157-399) 07/16/23 22: MPV 10.5 fL (7.4-10.4) H 07/16/23 22: Neut % (Auto) 70.7 % 07/16/23 22: Lymph % (Auto) 19.8 % 07/16/23 22: [place] % (Auto) 7.4 % 07/16/23 22: Eos % (Auto) 1.3 % 07/16/23 22: Baso % (Auto) 0.5 % 07/16/23: Neut # (Auto) 7.98 10^3/uL (1.8-7.7) H 07/16/23 22: Lymph # (Auto) 2.2 10^3/uL (0.8-4.8) 07/16/23: [place] # (Auto) 0.8 10^3/uL (0.2-0.9) 07/16/23 22: Eos # (Auto) 0.2 10^3/uL (0.0-0.8) 07/16/23 22: Baso # (Auto) 0.1 10^3/uL (0.0-0.1) 07/16/23 22: Nucleated RBC % (auto) 0 % 07/16/23: Nucleated RBCs # 0.0 /100WBC 07/16/23 22: Sodium 140 mmol/L (136-145) 07/16/23 22: Potassium 3.9 mmol/L (3.5-5.1) 07/16/23 22: Chloride 105 mmol/L (98-107) 07/16/23 22: Carbon Dioxide 25 mmol/L (22-29) 07/16/23 22: Anion Gap 13.9 (5-19) 07/16/23 22: BUN 18 mg/dL (6-20) 07/16/23 22: Creatinine 0.7 mg/dL (0.7-1.2) 07/16/23 22: GFR Calculation 131.5 mL/min (90-130) H 07/16/23 22:28 Glucose 109 mg/dL (65-115) 07/16/23 22:28 Calculated Osmolality 292 mOsm/kg (285-295) 07/16/23 22:28 Calcium 9.1 mg/dL (8.5-10.5) 07/16/23 22:28 Total Bilirubin 0.5 mg/dL (0.15-1.2) 07/16/23 22:28 AST 16 U/L (0-40) 07/16/23 22:28 ALT 18 U/L (0-41) 07/16/23 22:28 Alkaline Phosphatase 64 U/L (40-130) 07/16/23 22: C-Reactive Protein 14.2 mg/L (0.0-4.9) H 07/16/23 22:28 Total Protein 6.9 g/dL (6.6-8.7) 07/16/23 22:28 Albumin 4.4 g/dL (3.5-5.2) 07/16/23 22: Globulin 2.5 g/dL (1.3-4.6) 07/16/23 22:28 Lipase 21 U/L (13-60) 07/16/23 22:28 Urine Color Yellow (Yellow) 07/16/23 23:30 Urine Appearance Clear (CLEAR) 07/16/23 23:30 Urine pH 8 (5-7) H 07/16/23 23:30 Ur Specific [place] 1.010 (1.005-1.030) 07/16/23 23:30 Urine Protein Neg (Negative) 07/16/23 23:30 Urine Glucose (UA) Norm (Normal) 07/16/23 23:30 Urine Ketones Negative (Negative) 07/16/23 23:30 Urine Blood Neg (Negative) 07/16/23 23:30 Urine Nitrate Negative (Negative) 07/16/23 23:30 Urine Bilirubin Neg (Negative) 07/16/23 23:30 Prot Sulfosalicylic Acd Negative (Negative) 07/16/23 23:30 Urine Urobilinogen Norm mg/dL (Negative) 07/16/23 23:30 Ur Leukocyte Esterase Trace (Negative) H 07/16/23 23:30 Urine RBC 0-4 /hpf (0-2) H 07/16/23 23:30 Urine WBC 0-4 /hpf (0-5) H 07/16/23 23:30 Ur Squamous Epith Cells 0-4 /hpf (0-5) H 07/16/23 23:30 Amorphous Sediment Not Reportable 07/16/23 23:30 Urine Bacteria Trace /hpf (NONE) 07/16/23 23:30 All radiology interpretation(s) finalized by discharge Discharge Plan Discharge Patient Disposition: Home Clinical Impression: Abdominal pain Condition: Stable Prescriptions: New ketorolac 10 mg tablet 10 mg PO TID PRN (Reason: pain) Qty: 10 0RF Discontinued naproxen [Naprosyn] 500 mg tablet 500 mg PO BID PRN (Reason: pain) Qty: 20 0RF No Action fluoxetine 40 mg capsule 40 mg PO QAM Qty: 30 2RF Rx Instructions: Take one capsule by mouth every morning melatonin 3 mg tablet See Rx Instructions PO .q hs Qty: 60 1RF Rx Instructions: Take one to two tablets daily at bedtime, one hour before sleep Discharge Orders: Discharge ED (Routine); Ordered 07/16/23 Ordered By: Gentry Caceres Referrals: Robert Meadows [Primary Care Provider] - 4-7 days Patient Instructions: Abdominal Pain (ED), Opioid Safety, Pain Management Activity Restrictions/Additional Instructions: Medication as directed for pain. Return for worsening pain despite treatment, vomiting liquids or medications, fever greater than 100, other concerning symptoms. See your doctor this week. Coding Level of Care Code ED Process Planner for Bj Anna
[2023-07-16 23:43] LABS: Add Urine Microscopic? YES; Bacteria Urine TRACE /hpf; Leukocyte Esterase Urine Trace (Negative); RBC Urine 0-4 /hpf (0-2); Squamous Epithelial Cell Urine 0-4 /hpf (0-5); WBC Urine 0-4 /hpf (0-5)
[2023-07-17] MEDS: ketorolac 30 mg/mL INJ IVP (00:08)
[2023-07-17 00:09] VITALS: BP 99/62; PULSE 65; RESP 18; O2SAT 95
[2023-07-17 00:10] VITALS: BP 99/62; PULSE 64; RESP 18; O2SAT 96
== END 2023-07-17 00:14 | disposition home or self-care (01) ==
PROVIDERS: Emergency Provider Emergency Medicine; PCP Nurse Practitioner Family
DX: R10.31 Right lower quadrant pain (principal); R10.32 Left lower quadrant pain; F17.220 Nicotine dependence, chewing tobacco, uncomplicated
CPT/HCPCS: 74177; 80053; 81001; 83690; 85025; 86140; 96361; 96374; 96375; 99285; J1885; J2270; J2405; J7030; Q9967

== ENCOUNTER 2023-08-30 12:43 | Emergency (ER) | payer MEDICARE, MEDICAID, SELFPAY ==
[2023-08-30 12:53] VITALS: BP 106/72; PULSE 99; RESP 18; TEMP 36.9; O2SAT 98; BMI 29.9
--- NOTE | 2023-08-30 12:54 | W.ED.ANIMALB ---
HPI - Animal Bite General: Chief Complaint: Animal Bite Stated Complaint: cat bite Time Seen by Provider: 08/30/23 12:48 Source: patient and family Mode of arrival: ambulatory Limitations: no limitations History of Present Illness: Patient is a 33-year-old male who presents to ED today for evaluation of possible rabies exposure and cat bite. He has been seen along with another individual who has been caring for the kitten. She states that yesterday she found the cat altered, lying on its side, leaning up against the house. She states she attempted to nurse it back to health when it started vomiting. She states it was making abnormal muscle twitches, head and neck movements, and walking around in circles. She states she put the kitten in the shower to contain it and found it this morning. She took it to a vet clinic and they were concerned it could be rabies and recommended rabies PEP. She states she did try to take the animal to the health department today but they were on lunch break. Patient states he was bit by the cat yesterday and got saliva and an open wound he had to his left thumb. MD complaint: animal bite Onset (ago): day(s) Animal: cat Description of animal: immunizations unknown and appeared ill Mechanism: bite and contact with mucous membranes Location - Extremities: Left: forearm and hand Context: playing with animal Associated symptoms: Reports no associated symptoms; Deny chills, fever(s) or headache(s) Related Data: Patient tetanus UTD: No Review of Systems Const: Denies: fever(s), chills, body aches, fatigue or malaise Card: Denies: chest pain Resp: Denies: dyspnea GI: Denies: abdominal pain, vomiting or diarrhea Musc: Denies: neck pain, back pain, extremity pain, extremity swelling, joint pain or joint swelling Skin/Breast: Reports: other (cat bite) Neuro: Denies: headache(s), numbness in extremities, weakness in extremities, sensory changes or dizziness PFS ED PFSH: Medical History URI (upper respiratory infection) Psychiatric care No pertinent past medical history Surgical History No history of previous surgery Family History Family/Other Cancer stomach Social History Smoking and tobacco/nicotine status: former use of tobacco/nicotine (current chewing tobaccoo user) Quit status (tobacco/nicotine): has quit using Year quit tobacco: 2019 Second hand smoke exposure: No Alcohol intake: current Alcohol intake frequency: few times a week Substance/Drug Use: never Marital status: Life Partner Current occupational status: unemployed Physical Exam Const: COMMON NORMALS: no acute distress, no limitations, alert and well nourished Extremity: COMMON NORMALS: full ROM GENERAL: Yes normal exam except as noted LEFT UPPER EXTREMITY: Yes lower arm, Yes wrist and Yes hand & digits OTHER: has small open cut/wound to distal L thumb that he states the kitten was chewing on and had contact with saliva; states the kitten bit him several times to hand/forearm but no obvious bite rosa identified; no redness/swelling noted anywhere Neuro: COMMON NORMALS: moves all extremities, no focal motor deficits and no sensory deficits noted SENSORIUM/ORIENTATION: Yes alert Course Vital Signs: Vital signs: Vital Signs Temperature 98.4 F 08/30/23 12:53 Pulse Rate 99 08/30/23 12:53 Respiratory Rate 18 08/30/23 12:53 Blood Pressure 106/72 08/30/23 12:53 Pulse Oximetry 98 08/30/23 12:53 MDM - Animal Bite Medical Decision Making Will start rabies PEP and update tetanus. He will be placed on Augmentin. He will be given a schedule for remainder of rabies shots at the infusion center. Return precautions given. Differential Diagnosis Likely cat bite Medical Records I reviewed the patient's medical records. No radiology studies performed this visit Discharge Plan Discharge Patient Disposition: Home Clinical Impression: Cat bite of finger Qualifiers: Encounter type: initial encounter Qualified Code(s): S61.259A - Open bite of unspecified finger without damage to nail, initial encounter Condition: Stable Prescriptions: New amoxicillin-pot clavulanate 875-125 mg tablet 1 tab PO BID Qty: 14 0RF No Action fluoxetine 40 mg capsule 40 mg PO QAM Qty: 30 2RF Rx Instructions: Take one capsule by mouth every morning melatonin 3 mg tablet See Rx Instructions PO .q hs Qty: 60 1RF Rx Instructions: Take one to two tablets daily at bedtime, one hour before sleep ketorolac 10 mg tablet 10 mg PO TID PRN (Reason: pain) Qty: 14 0RF Discharge Orders: Discharge ED (Routine); Ordered 08/30/23 Ordered By: Vicki Gillis Referrals: Robert Meadows [Primary Care Provider] - Patient Instructions: Rabies Vaccine (By injection), Rabies Immune Globulin (By injection), Animal Bite (ED) Activity Restrictions/Additional Instructions: You should receive a schedule for the remainder of your rabies vaccinations upon discharge. These will be completed through the infusion center. You need to fill your antibiotics and start them immediately. Monitor for signs of infection such as redness, swelling, purulent drainage, streaking up your hand or arm, fevers, or any other concerns you may have. Coding Level of Care Code ED Switchboard Mechanic for Bj Anna
[2023-08-30] MEDS: rabies vaccine 2.5 unit SDV IM (14:12)
[2023-08-30] MEDS: tetanus-dipt-pertussis 0.5 mL SDV IM (14:18)
[2023-08-30] MEDS: rabies IG 300 unit/mL SDV 1 mL 1620 UNIT IM (14:23)
== END 2023-08-30 14:41 | disposition home or self-care (01) ==
PROVIDERS: Emergency Provider Physician Assistant; PCP Nurse Practitioner Family
DX: Z20.3 Contact with and (suspected) exposure to rabies (principal); Z29.14 Encounter for prophylactic rabies immune globulin; Z87.891 Personal history of nicotine dependence; Z23 Encounter for immunization
CPT/HCPCS: 90375; 90471; 90675; 90715; 96372; 99283

== ENCOUNTER 2023-10-13 09:37 | Outpatient (CLI) | payer MEDICARE, MEDICAID, SELFPAY ==
--- NOTE | 2023-10-13 09:46 | XRR_ITS ---
PROCEDURE INFORMATION: Exam: XR Chest Exam date and time: 10/13/2023 9:54 AM Age: 33 years old Clinical indication: Dyspnea; Additional info: Dyspnea on exertion TECHNIQUE: Imaging protocol: Radiologic exam of the chest. Views: 2 views. COMPARISON: CR XR chest 1V portable [id number] 12/02/2022 12:29 AM FINDINGS: Lungs: No acute infiltrates are seen. Anterior right upper lobe granulomatous calcification is again evident. Pleural spaces: No significant pleural fluid. No pneumothorax detected. Heart/Mediastinum: Heart size within normal range. No pulmonary vascular congestion. Bones/joints: No obvious acute abnormality. XR/XR chest 2V* [id number] IMPRESSION: No active chest disease identified.
== END 2023-10-13 09:38 | disposition home or self-care (01) ==
LOC: RAD 09:40
PROVIDERS: PCP Nurse Practitioner Family; Visit Provider Family Medicine
DX: R06.09 Other forms of dyspnea (principal); J84.10 Pulmonary fibrosis, unspecified
CPT/HCPCS: 71046

== ENCOUNTER 2023-12-27 09:01 | Outpatient (CLI) | payer MEDICARE, MEDICAID, SELFPAY ==
[2023-12-27 09:17] VITALS: PULSE 85; RESP 18; O2SAT 98
[2023-12-27 09:22] VITALS: PULSE 87
[2023-12-27] MEDS: albuterol 2.5 mg/3 mL Neb INHALATION (09:22)
== END 2023-12-27 09:02 | disposition home or self-care (01) ==
PROVIDERS: PCP Family Medicine; Visit Provider Family Medicine
DX: R06.09 Other forms of dyspnea (principal)
CPT/HCPCS: 94060

== ENCOUNTER 2024-01-21 21:07 | Emergency (ER) | payer MEDICARE, MEDICAID, SELFPAY ==
[2024-01-21 21:11] VITALS: BP 129/88; PULSE 86; RESP 17; TEMP 36.8; O2SAT 99; BMI 33.7
--- NOTE | 2024-01-21 21:22 | ED_ITS ---
HPI - Headache 2 General: Chief Complaint: Headache Stated Complaint: severe headache Time Seen by Provider: 01/21/24 21:17 History of Present Illness: 33-year-old male patient comes in today with a headache and cough since Tuesday. Patient appears nontoxic. Patient reports exposure to COVID-19. Associated symptoms: Reports fever(s) and malaise Related Data Previous Rx's Medication Instructions Recorded fluoxetine 40 mg capsule 40 mg PO QAM #30 caps 10/07/22 melatonin 3 mg tablet See Rx Instructions PO .q hs #60 10/07/22 tabs ketorolac 10 mg tablet 10 mg PO TID PRN pain #14 tabs 07/17/23 amoxicillin 875 mg-potassium 1 tab PO BID #14 tabs 08/30/23 clavulanate 125 mg tablet Allergies Allergy/AdvReac Type Severity Reaction Status Date / Time No Known Allergies Allergy Verified 01/21/24 21:14 Review of Systems 2 General: Reports: 10 or more systems reviewed and unremarkable except in HPI and below Const: Reports: fever(s), body aches and malaise Resp: Reports: non-productive cough Neuro: Reports: headache(s) PFSH ED 2 PFSH: Medical History (Updated 01/21/24 @ 23:08 by SHANTI Richard) URI (upper respiratory infection) No pertinent past medical history Surgical History No history of previous surgery Family History Family/Other Cancer stomach Social History Smoking and tobacco/nicotine status: former use of tobacco/nicotine (current chewing tobaccoo user) Quit status (tobacco/nicotine): has quit using Year quit tobacco: 2020 Second hand smoke exposure: No Alcohol intake: current Alcohol intake frequency: few times a week Substance/Drug Use: never Marital status: Life Partner Current occupational status: unemployed Physical Exam 2 Const: COMMON NORMALS: alert HENMT: COMMON NORMALS: normocephalic HEAD & SCALP: normocephalic Neck/C-Spine: COMMON NORMALS: full ROM Resp: COMMON NORMALS: normal respiratory effort and clear to auscultation bilaterally AUSCULTATION: clear to auscultation bilaterally Cardio: COMMON NORMALS: regular rate RATE: regular rate Back/Pelvis: COMMON NORMALS: thoracic and lumbar spine normal to inspection Extremity: COMMON NORMALS: full ROM Neuro: SENSORIUM/ORIENTATION: Yes alert Skin: COMMON NORMALS: turgor normal GENERAL SKIN EXAM: turgor normal Course 2 Vital Signs: Vital signs: Vital Signs Temperature 98.2 F 01/21/24 21:11 Pulse Rate 87 01/21/24 21:57 Respiratory Rate 17 01/21/24 21:11 Blood Pressure 118/77 01/21/24 21:57 Pulse Oximetry 90 01/21/24 21:57 Oxygen Delivery Me thod Room Air 01/21/24 21:11 MDM - Headache Medical Decision Making Patient comes in today with reported fever, cough, and bodyaches since Tuesday. Patient appears nontoxic. Patient appears mildly unwell. Vital signs are normal. Differential diagnosis headache, viral syndrome, COVID-19, dehydration. CBC and CMP were unremarkable. Chest x-ray was normal. COVID test was negative. Patient was treated for his headache with 1 L of IV fluids, 10 mg of Reglan, 15 mg of Toradol, 10 mg dexamethasone to prevent rebound, and 50 mg of Benadryl. Patient reported improvement of headache. Recommended pushing fluids and following up with primary care or return to ER for worsening symptoms. Family and friend both reported understanding and agreed to plan. Lab Data 01/21/24 21:35 01/21/24 21:35 Radiology Impressions Chest X-Ray 01/21/24 21:22 IMPRESSION: No acute findings. Laboratory Results WBC 8.60 10^3/uL (3.29-11.43) 01/21/24 21:35 RBC 4.93 10^6/uL (3.85-5.65) 01/21/24 21:35 Hgb 15.10 g/dL (11.27-16.99) 01/21/24 21:35 Hct 45.3 % (37-53) 01/21/24 21:35 MCV 91.9 fl (82-101) 01/21/24 21:35 MCH 30.6 pg (27-33) 01/21/24 21: MCHC 33.3 g/dL (30-55) 01/21/24 21:35 RDW 12.2 % (12.1-15.1) 01/21/24 21:35 Plt Count 197 10^3/cmm (157-399) 01/21/24 21:35 MPV 10.8 fL (7.4-10.4) H 01/21/24 21:35 Neut % (Auto) 57.0 % 01/21/24 21:35 Lymph % (Auto) 32.1 % 01/21/24 21:35 [place] % (Auto) 7.0 % 01/21/24 21:35 Eos % (Auto) 2.8 % 01/21/24 21:35 Baso % (Auto) 0.8 % 01/21/24 21:35 Neut # (Auto) 4.90 10^3/uL (1.8-7.7) 01/21/24 21: Lymph # (Auto) 2.8 10^3/uL (0.8-4.8) 01/21/24 21:35 [place] # (Auto) 0.6 10^3/uL (0.2-0.9) 01/21/24 21:35 Eos # (Auto) 0.2 10^3/uL (0.0-0.8) 01/21/24 21:35 Baso # (Auto) 0.1 10^3/uL (0.0-0.1) 01/21/24 21:35 Nucleated RBC % (auto) 0 % 01/21/24 21: Nucleated RBCs # 0.0 /100WBC 01/21/24 21:35 Sodium 144 mmol/L (136-145) 01/21/24 21:35 Potassium 3.6 mmol/L (3.5-5.1) 01/21/24 21:35 Chloride 106 mmol/L (98-107) 01/21/24 21:35 Carbon Dioxide 27 mmol/L (22-29) 01/21/24 21:35 Anion Gap 14.6 (5-19) 01/21/24 21:35 BUN 18 mg/dL (6-20) 01/21/24 21:35 Creatinine 1.1 mg/dL (0.7-1.2) 01/21/24 21:35 GFR Calculation 78.1 mL/min (90-130) L 01/21/24 21:35 Glucose 85 mg/dL (65-115) 01/21/24 21:35 Calculated Osmolality 299 mOsm/kg (285-295) H 01/21/24 21:35 Calcium 8.5 mg/dL (8.5-10.5) 01/21/24 21:35 Total Bilirubin 0.3 mg/dL (0.15-1.2) 01/21/24 21:35 AST 16 U/L (0-40) 01/21/24 21:35 ALT 23 U/L (0-41) 01/21/24 21:35 Alkaline Phosphatase 69 U/L (40-130) 01/21/24 21:35 Total Protein 6.6 g/dL (6.6-8.7) 01/21/24 21:35 Albumin 4.2 g/dL (3.5-5.2) 01/21/24 21:35 Globulin 2.4 g/dL (1.3-4.6) 01/21/24 21:35 SARS-CoV-2 Ag (Rapid) negative (Negative) 01/21/24 22:34 All radiology interpretation(s) finalized by discharge Discharge Plan Discharge Patient Disposition: Home Clinical Impression: Viral syndrome Headache Qualifiers: Headache type: unspecified Headache chronicity pattern: acute headache I ntractability: not intractable Qualified Code(s): R51.9 - Headache, unspecified Condition: Stable Prescriptions: No Action fluoxetine 40 mg capsule 40 mg PO QAM Qty: 30 2RF Rx Instructions: Take one capsule by mouth every morning melatonin 3 mg tablet See Rx Instructions PO .q hs Qty: 60 1RF Rx Instructions: Take one to two tablets daily at bedtime, one hour before sleep ketorolac 10 mg tablet 10 mg PO TID PRN (Reason: pain) Qty: 14 0RF amoxicillin-pot clavulanate 875-125 mg tablet 1 tab PO BID Qty: 14 0RF Discharge Orders: Discharge ED (Routine); Ordered 01/21/24 Ordered By: Juliocesar White Referrals: Shady Cordoba MD [Primary Care Provider] - Discharge Diet: Usual diet Discharge Activity: Increase activity as tolerated Patient Instructions: Viral Syndrome (ED) Activity Restrictions/Additional Instructions: Drink plenty of water and fluids. Use acetaminophen and ibuprofen for pain and discomfort. Activity as tolerated. Follow-up with primary care in 3 days for recheck. Return to ED for worsening symptoms such as inability to hold fluids down, increased shortness of breath, or new concerns. Stand Alone Forms: Work/School Release Coding Level of Care Code ED Interlocker Maintainer for Bj Anna
--- NOTE | 2024-01-21 21:22 | XRR_ITS ---
PROCEDURE INFORMATION: Exam: XR Chest Exam date and time: 01/21/2024 9:32 PM Age: 33 years old Clinical indication: Patient HX: Cough; Headache; Body aches; Exposed to covid TECHNIQUE: Imaging protocol: Radiologic exam of the chest. Views: 1 view. COMPARISON: CR XR chest 2V* [id number] 10/13/2023 9:54 AM FINDINGS: Lungs: Unremarkable. No consolidation. Pleural spaces: Unremarkable. No pleural effusion. No pneumothorax. Heart/Mediastinum: Unremarkable. No cardiomegaly. Bones/joints: Unremarkable. XR/XR chest 1V portable [id number] IMPRESSION: No acute findings.
[2024-01-21 21:42] LABS: Basophils # 0.1 10^3/uL (0.0-0.1); Basophils % 0.8 %; Eosinophils # 0.2 10^3/uL (0.0-0.8); Eosinophils % 2.8 %; Hematocrit 45.3 % (37-53); Lymphocytes # 2.8 10^3/uL (0.8-4.8); Lymphocytes % 32.1 %; Mean Corpuscular HGB Conc 33.3 g/dL (30-55); Mean Corpuscular Hemoglobin 30.6 pg (27-33); Mean Corpuscular Volume 91.9 fl (82-101); Mean Platelet Volume 10.8 fL (7.4-10.4); Monocytes # 0.6 10^3/uL (0.2-0.9); Nucleated Red Blood Cells % 0 %; Platelet Count 197 10^3/cmm (157-399); Red Blood Count 4.93 10^6/uL (3.85-5.65); Red Cell Distribution Width 12.2 % (12.1-15.1)
[2024-01-21] MEDS: ketorolac 30 mg/mL INJ 15 MG IVP (21:47)
[2024-01-21] MEDS: diphenhydrAMINE 50 mg/mL SDV 1mL IVP (21:50)
[2024-01-21] MEDS: dexamethasone 10 mg/mL INJ IVP (21:51)
[2024-01-21] MEDS: metoclopramide 5 mg/mL SDV 2 mL 10 MG IVP (21:52)
[2024-01-21] MEDS: sodium chloride 0.9% 1,000 ML 999 ML IV (21:55)
[2024-01-21 21:57] VITALS: BP 118/77; PULSE 87; O2SAT 90
[2024-01-21 22:03] LABS: Alanine Aminotransferase 23 U/L (0-41); Albumin Level 4.2 g/dL (3.5-5.2); Alkaline Phosphatase 69 U/L (40-130); Anion Gap 14.6 (5-19); Aspartate Amino Transferase 16 U/L (0-40); Blood Urea Nitrogen 18 mg/dL (6-20); Calcium 8.5 mg/dL (8.5-10.5); Carbon Dioxide 27 mmol/L (22-29); Chloride 106 mmol/L (98-107); Creatinine Clr Calc Pharmacy 101.3744; Globulin 2.4 g/dL (1.3-4.6); Glomerular Filtration Rate 78.1 mL/min (90-130); Glucose 85 mg/dL (65-115); Osmolality Calculated 299 mOsm/kg (285-295); Potassium 3.6 mmol/L (3.5-5.1); Sodium 144 mmol/L (136-145); Total Bilirubin 0.3 mg/dL (0.15-1.2); Total Protein 6.6 g/dL (6.6-8.7)
[2024-01-21 22:52] LABS: SARS Covid-2 Antigen negative (Negative)
[2024-01-21 23:24] VITALS: BP 117/76; PULSE 73; RESP 18; O2SAT 93
== END 2024-01-21 23:23 | disposition home or self-care (01) ==
PROVIDERS: Emergency Medicine; Emergency Provider Nurse Practitioner Family; PCP Family Medicine
DX: B34.9 Viral infection, unspecified (principal); Z11.52 Encounter for screening for COVID-19; R51.9 Headache, unspecified; Z87.891 Personal history of nicotine dependence
CPT/HCPCS: 71045; 80053; 85025; 87426; 96361; 96374; 96375; 99284; J1100; J1200; J1885; J2765; J7030

== ENCOUNTER 2024-09-01 12:33 | Observation (INO) | payer MEDICARE, MEDICAID, SELFPAY ==
[2024-09-01] VITALS (16 sets, daily range): BP systolic 107–128; BP diastolic 64–93; PULSE 82–118; RESP 16–18; TEMP 36.1–37.2; O2SAT 92–100; BMI 33.7; BMI 33.3
[2024-09-01 13:05] LABS: Basophils % 0.3 %; Eosinophils # 0.1 10^3/uL (0.0-0.8); Eosinophils % 0.4 %; Hematocrit 46.6 % (37-53); Lymphocytes # 1.9 10^3/uL (0.8-4.8); Lymphocytes % 11.8 %; Mean Corpuscular Hemoglobin 30.3 pg (27-33); Mean Corpuscular Volume 91.7 fl (82-101); Monocytes # 0.8 10^3/uL (0.2-0.9); Monocytes % 5.3 %; Neutrophils # 12.86 10^3/uL (1.8-7.7); Neutrophils % 81.9 %; Nucleated Red Blood Cells % 0 %; Platelet Count 181 10^3/cmm (157-399); Red Blood Count 5.08 10^6/uL (3.85-5.65); Red Cell Distribution Width 12.1 % (12.1-15.1); White Blood Count 15.71 10^3/uL (3.29-11.43)
[2024-09-01 13:31] LABS: Alanine Aminotransferase 18 U/L (0-41); Albumin Level 4.3 g/dL (3.5-5.2); Alkaline Phosphatase 72 U/L (40-130); Anion Gap 12.9 (5-19); Aspartate Amino Transferase 13 U/L (0-40); Blood Urea Nitrogen 14 mg/dL (6-20); Calcium 9.1 mg/dL (8.5-10.5); Carbon Dioxide 26 mmol/L (22-29); Chloride 102 mmol/L (98-107); Globulin 2.8 g/dL (1.3-4.6); Glomerular Filtration Rate 130.7 mL/min (90-130); Glucose 98 mg/dL (65-115); Lipase 16 U/L (13-60); Osmolality Calculated 284 mOsm/kg (285-295); Potassium 3.9 mmol/L (3.5-5.1); Sodium 137 mmol/L (136-145); Total Bilirubin 0.5 mg/dL (0.15-1.2); Total Protein 7.1 g/dL (6.6-8.7)
--- NOTE | 2024-09-01 13:39 | ED_ITS ---
HPI - Abdominal Pain 2 General: Chief Complaint: Abdominal Pain Stated Complaint: abdominal pain Time Seen by Provider: 09/01/24 13:34 Source: patient Mode of arrival: ambulatory Limitations: no limitations History of Present Illness: 34-year-old male states been having lowe r abdominal pain over the last 2 days states that sharp pain across his whole lower abdomen. States has had diverticulitis in the past and felt the same he had some vomiting denies any fever denies any diarrhea states is much worse with palpation or movement. Associated Symptoms: Denies chills, diarrhea, fever(s), nausea and vomiting Related Data Previous Rx's ?Medication ?Instructions ?Recorded albuterol sulfate 90 mcg/actuation 2 puff inhalation Q ID PRN 08/12/24 aerosol inhaler (Ventolin HFA) shortness of breath or wheezing #8.5 grams Allergies Allergy/AdvReac Type Severity Reaction Status Date / Time No Known Allergies Allergy Verified 08/12/24 15:58 Review of Systems 2 Const: Denies: fever(s), chills, body aches or change in appetite Eyes: Denies: blurry vision or eye discomfort ENMT: Denies: throat pain or dental pain Card: Denies: chest pain Resp: Denies: dyspnea GI: Reports: abdominal pain; Denies: nausea, vomiting or diarrhea Musc: Denies: neck pain or back pain Skin/Breast: Denies: rash Neuro: Denies: headache(s) PFSH ED 2 PFSH: Medical History URI (upper respiratory infection) No pertinent past medical history Surgical History No history of previous surgery Family History Family/Other Cancer stomach Social History Smoking and tobacco/nicotine status: never used tobacco/nicotine Quit status (tobacco/nicotine): has quit using Year quit tobacco: 2019 Second hand smoke exposure: No Alcohol intake: current Alcohol intake frequency: few times a week Substance/Drug Use: never Marital status: Life Partner Current occupational status: unemployed Physical Exam 2 Const: COMMON NORMALS: no acute distress, patient oriented x3 and healthy appearing HENMT: COMMON NORMALS: normocephalic and atraumatic HEAD & SCALP: n ormocephalic and atraumatic Eye: COMMON NORMALS: conjunctivae normal CONJUNCTIVA: Yes conjunctivae normal Neck/C-Spine: COMMON NORMALS: full ROM and supple Chest: COMMONS NORMALS: normal inspection of the chest Resp: COMMON NORMALS: normal respiratory effort, No retractions, No use of accessory muscles and clear to auscultation bilaterally AUSCULTATION: clear to auscultation bilaterally Cardio: COMMON NORMALS: regular rate, regular rhythm and No murmurs present (Cardio) RATE: regular rate RHYTHM: regular rhythm GI: INSPECTION: Yes normal to inspection OTHER: lower abd tenderness Extremity: COMMON NORMALS: normal to inspection and full ROM Neuro: COMMON NORMALS: patient oriented x3, moves all extremities and no focal motor deficits Psych: COMMON NORMALS: mental status grossly normal, Normal thought process present and cooperative THOUGHT PROCESS: Normal thought process present Skin: COMMON NORMALS: no rashes or lesions noted and no wounds GENERAL SKIN EXAM: no rashes or lesions noted Course 2 Vital Signs: Vital signs: Vital Signs Temperature 98.9 F 09/01/24 13:28 Pulse Rate 82 09/01/24 15:12 Respiratory Rate 18 09/01/24 13:57 Blood Pressure 125/64 09/01/24 15:12 Pulse Oximetry 100 09/01/24 13:57 Oxygen Delivery Me thod Room Air 09/01/24 13:28 MDM - Abdominal Pain Medical Decision Making Patient presents here with abdominal pain CT did show appendicitis spoke to surgeon on-call will admit at this time. Medical Records I reviewed the patient's medical records. Lab Data I reviewed the patient's lab results. 09/01/24 12:59 09/01/24 12:59 Labs/Radiology: Radiology Impressions Abdomen/Pelvis CT 09/01/24 13:52 IMPRESSION: Acute appendicitis with no perforation or abscess formation. ADDENDUM: 09/01/24 1522 THIS REPORT CONTAINS FINDINGS THAT MAY BE CRITICAL TO PATIENT CARE. The findings were verbally communicated via telephone conference with VINOD FLORES at 3:20 PM CDT on 09/01/2024. The findings were acknowledged and understood. Laboratory Results WBC 15.71 10^3/uL (3.29-11.43) H 09/01/24 12:59 RBC 5.08 10^6/uL (3.85-5.65) 09/01/24 12:59 Hgb 15.40 g/dL (11.27-16.99) 09/01/24 12:59 Hct 46.6 % (37-53) 09/01/24 12:59 MCV 91.7 fl (82-101) 09/01/24 12:59 MCH 30.3 pg (27-33) 09/01/24 12:59 MCHC 33.0 g/dL (30-55) 09/01/24 12:59 RDW 12.1 % (12.1-15.1) 09/01/24 12:59 Plt Count 181 10^3/cmm (157-399) 09/01/24 12:59 MPV 11.0 fL (7.4-10.4) H 09/01/24 12:59 Neut % (Auto) 81.9 % 09/01/24 12:59 Lymph % (Auto) 11.8 % 09/01/24 12:59 [place] % (Auto) 5.3 % 09/01/24 12:59 Eos % (Auto) 0.4 % 09/01/24 12:59 Baso % (Auto) 0.3 % 09/01/24 12:59 Neut # (Auto) 12.86 10^3/uL (1.8-7.7) H 09/01/24 12:59 Lymph # (Auto) 1.9 10^3/uL (0.8-4.8) 09/01/24 12:59 [place] # (Auto) 0.8 10^3/uL (0.2-0.9) 09/01/24 12:59 Eos # (Auto) 0.1 10^3/uL (0.0-0.8) 09/01/24 12:59 Baso # (Auto) 0.0 10^3/uL (0.0-0.1) 09/01/24 12:59 Nucleated RBC % (auto) 0 % 09/01/24 12:59 Nucleated RBCs # 0.0 /100WBC 09/01/24 12:59 Sodium 137 mmol/L (136-145) 09/01/24 12:59 Potassium 3.9 mmol/L (3.5-5.1) 09/01/24 12:59 Chloride 102 mmol/L (98-107) 09/01/24 12:59 Carbon Dioxide 26 mmol/L (22-29) 09/01/24 12:59 Anion Gap 12.9 (5-19) 09/01/24 12:59 BUN 14 mg/dL (6-20) 09/01/24 12:59 Creatinine 0.7 mg/dL (0.7-1.2) 09/01/24 12:59 GFR Calculation 130.7 mL/min (90-130) H 09/01/24 12:59 Glucose 98 mg/dL (65-115) 09/01/24 12:59 Calculated Osmolality 284 mOsm/kg (285-295) L 09/01/24 12:59 Calcium 9.1 mg/dL (8.5-10.5) 09/01/24 12:59 Total Bilirubin 0.5 mg/dL (0.15-1.2) 09/01/24 12:59 AST 13 U/L (0-40) 09/01/24 12:59 ALT 18 U/L (0-41) 09/01/24 12:59 Alkaline Phosphatase 72 U/L (40-130) 09/01/24 12:59 Total Protein 7.1 g/dL (6.6-8.7) 09/01/24 12:59 Albumin 4.3 g/dL (3.5-5.2) 09/01/24 12:59 Globulin 2.8 g/dL (1.3-4.6) 09/01/24 12:59 Lipase 16 U/L (13-60) 09/01/24 12:59 All radiology interpretation(s) finalized by discharge Discharge Plan Discharge Patient Disposition: Admitted As Inpatient Clinical Impression: Acute appendicitis Condition: Stable Coding Level of Care Code ED Artist Relationship Manager for Bj Anna
--- NOTE | 2024-09-01 13:52 | CTR_ITS ---
PROCEDURE INFORMATION: Exam: CT Abdomen And Pelvis With Contrast Exam date and time: 09/01/2024 2:14 PM Age: 34 years old Clinical indication: Abdominal pain; Localized; Lower; Additional info: Abd pain TECHNIQUE: Imaging protocol: Computed tomography of the abdomen and pelvis with contrast. Radiation optimization: All CT scans at this facility use at least one of these dose optimization techniques: automated exposure control; mA and/or kV adjustment per patient size (includes targeted exams where dose is matched to clinical indication); or iterative reconstruction. Contrast material: OMNI 350; Contrast volume: 100 ml; Contrast route: INTRAVENOUS (IV); COMPARISON: CT abdomen pelvis w con* [id number] 07/16/2023 10:50 PM RADIATION DOSE METRICS: Total DLP (mGy-cm): 710.63 FINDINGS: Lungs: Bilateral lower lobe atelectasis. Liver: Normal. No mass. Gallbladder and biliary ducts: Normal. No calcified stones. No ductal dilation. Pancreas: Normal. No ductal dilation. Spleen: Normal. No splenomegaly. Adrenal glands: Normal. No mass. Kidneys and ureters: Normal. No hydronephrosis. Stomach and bowel: Mild diverticulosis is present in the distal colon. Appendix: The appendix is enlarged measuring 1.5 cm with surrounding fat stranding and wall enhancement. Intraperitoneal space: Unremarkable. No free air. No significant fluid collection. Vasculature: There are numerous benign phleboliths in the pelvis. Lymph nodes: Unremarkable. No enlarged lymph nodes. Urinary bladder: Unremarkable as visualized. Reproductive: Unremarkable as visualized. Bones/joints: Unremarkable. No acute fracture. Soft tissues: Unremarkable. CT/CT abdomen pelvis w con* [id number] IMPRESSION: Acute appendicitis with no perforation or abscess formation.
[2024-09-01] MEDS: morphine 4 mg/mL SDV 1 mL IVP (13:57)
[2024-09-01] MEDS: ondansetron 2 mg/ML SDV 2 mL 4 MG IVP (13:58)
[2024-09-01] MEDS: iohexol 350 mg/mL 500 mL Btl (per mL) IV (14:17)
--- NOTE | 2024-09-01 15:30 | P.HP_ITS ---
Providers/Chief Complaint 2 Primary Care Provider: Shady Cordoba MD Chief Complaint: abdominal pain History of Present Illness Virgilio Maurice is a 34 year old male who presented with acute uncomplicated appendicitis patient reports right upper quadrant pain for about a day. Nausea. Medications/Allergies Home Medications ?Medication ?Instructions ?Recorded ?Confirmed ?Last Taken ?Type albuterol sulfate 90 mcg/actuation 2 puff inhalation Q ID PRN 08/12/24 09/01/24 Unknown Rx aerosol inhaler (Ventolin HFA) shortness of breath or wheezing #8.5 grams Allergies Allergy/AdvReac Type Severity Reaction Status Date / Time No Known Allergies Allergy Verified 08/12/24 15:58 PFSH Acute 2 PFSH: Medical History URI (upper respiratory infection) No pertinent past medical history Surgical History No history of previous surgery Family History Family/Other Cancer stomach Social History Smoking and tobacco/nicotine status: never used tobacco/nicotine Quit status (tobacco/nicotine): has quit using Year quit tobacco: 2019 Second hand smoke exposure: No Alcohol intake: current Alcohol intake frequency: few times a week Substance/Drug Use: never Marital status: Life Partner Current occupational status: unemployed Vitals/I&O/Wt Last Vital Signs Temp 98.9 F 09/01/24 13:28 Pulse 82 09/01/24 15:12 Resp 18 09/01/24 13:57 BP 125/64 09/01/24 15:12 Pulse Ox 100 09/01/24 13:57 O2 Del Method Room Air 09/01/24 13:28 Weight last 48 hrs Weight 203 lb Physical Exam 2 Narrative: Chest: Unlabored breathing room air. No lymphadenopathy. Heart: Regular rate and rhythm. Abdomen: Soft, tender right lower quadrant, nondistended. No masses or lymphadenopathy. Data 09/01/24 12:59 09/01/24 12:59 A&P Assessment and plan (1) Acute appendicitis: Plan 34-year-old male who presents with acute uncomplicated appendicitis. Discussed risk and benefits and patient agrees to proceed with laparoscopic appendectomy possible open. PDMP PDMP Reviewed: Not Reviewed Attestations 2 Medical Necessity Statement*: IV abx Coding Level of Care Code 41885 Diagnoses Acute appendicitis K35.80 Time Spent (min) 30
[2024-09-01] MEDS: piperacillin-tazobactam 3.375 GM in sodium chloride 0.9% (plus) 50 ML IV ×2 (15:41→20:32)
[2024-09-01] MEDS: sodium chloride 0.9% 1,000 ML 30 ML IV (17:15)
--- NOTE | 2024-09-01 17:22 | P.ANESASSM_ITS ---
Pre-Anesthetic Assessment Height/Weight: Height 1.65 m Weight 92.079 kg Temp Pulse Resp BP Pulse Ox O2 Del Method 98.7 F 95 18 128/82 97 Room Air 09/01/24 17:00 09/01/24 17:00 09/01/24 17:00 09/01/24 17:00 09/01/24 17:00 09/01/24 17:00 Operation Date: 09/01/24 18:10 Proposed Procedures p Laparoscopic Appendectomy(Not Applicable) - Quinton Evangelista MD Familial anesthetic complications: Never had anesthesia, no family issues Was Beta Raina taken within 24 hours: N/A Was Clonidine taken within 24 hours: N/A Last intake: No food/drink since yesterday Social No alcohol (Denies) and No tobacco Exam alert, oriented x 3, clear to auscultation bilaterally and regular rate & rhythm Airway Submandibular: within normal limits Cervical ROM: within normal limits Mallampati: Class III Dentition: full History/ROS No significant history except as noted and No significant complaints Pulmonary Exertional Dyspnea Flu 1 month ago, back to baseline CV/HEM Palpitations None reported Hepatic None reported GI Gastroesophageal Reflux Disease N/V with abd pain Metabolic None reported Musc/skel None reported Neuropsych Anxiety and Neuropathy Anesthetic Plan ASA status: 2E Anesthesia: Anesthesia Evaluation and General Risk of > 500 ml blood loss (7ml/kg in children): No Medications/Allergies Home Medications ?Medication ?Instructions ?Recorded ?Confirmed ?Last Taken ?Type albuterol sulfate 90 mcg/actuation 2 puff inhalation Q ID PRN 08/12/24 09/01/24 Unknown Rx aerosol inhaler (Ventolin HFA) shortness of breath or wheezing #8.5 grams Allergies Allergy/AdvReac Type Severity Reaction Status Date / Time No Known Allergies Allergy Verified 08/12/24 15:58 Current Medications Generic Name Dose Route Start Last Admin Trade Name Freq PRN Reason Stop Dose Admin Piperacillin Sod/Tazobactam 50 mls @ 100 mls/hr 09/01/24 15:30 09/01/24 15:41 Sod 3.375 gm/ Sodium Chloride IV 100 mls/hr Q6H ABEL Administration Protocol PFS Anesthesia Medical History URI (upper respiratory infection) No pertinent past medical history Surgical History No history of previous surgery Family History Family/Other Cancer stomach Social History Smoking and tobacco/nicotine status: never used tobacco/nicotine Quit status (tobacco/nicotine): has quit using Year quit tobacco: 2020 Second hand smoke exposure: No Alcohol intake: current Alcohol intake frequency: few times a week Substance/Drug Use: never Marital status: Life Partner Current occupational status: unemployed Data Anesthesia 09/01/24 12:59 09/01/24 12:59 Short CBC 09/01/24 Range/Units 12:59 WBC 15.71 H (3.29-11.43) 10^3/uL Hgb 15.40 (11.27-16.99) g/dL Hct 46.6 (37-53) % MCV 91.7 (82-101) fl Plt Count 181 (157-399) 10^3/cmm Neut % (Auto) 81.9 % Neut # (Auto) 12.86 H (1.8-7.7) 10^3/uL BMP 09/01/24 12:59 Sodium 137 Potassium 3.9 Chloride 102 Carbon Dioxide 26 BUN 14 Creatinine 0.7 Glucose 98 Calcium 9.1 Liver Function 09/01/24 Range/Units 12:59 Total Bilirubin 0.5 (0.15-1.2) mg/dL AST 13 (0-40) U/L ALT 18 (0-41) U/L Alkaline Phosphatase 72 (40-130) U/L Albumin 4.3 (3.5-5.2) g/dL Cardiac Studies: 2 No Data to Display
[2024-09-01] MEDS: ceFAZolin 2,000 mg SDV 2000 MG IVP (18:15)
--- NOTE | 2024-09-01 18:25 | PM.OP ---
Operative Report Date of procedure: September 01, 2024 Pre-op diagnosis: Acute uncomplicated appendicitis Post-op diagnosis: same Post-op findings: Acute uncomplicated appendicitis. Staple line intact. Adequate hemostasis. Procedure done: Laparoscopic appendectomy Implants: N/A Specimens removed/disposition: Appendectomy sent to pathology Pathology: Appendix and pathology Surgeon: Quinton Evangelista MD Sales Representative Gas Service: N/A Anesthesia: General Estimated blood loss (mL): 10 Complications: N/A Findings: Injected appendix. No abscess. Resected appendix. Staple line intact and adequate hemostasis confirmed. Condition: stable Disposition: observation Brief History: 34-year-old male who presented with acute uncomplicated appendicitis. Discussed risk and benefits and patient agreed to proceed with laparoscopic appendectomy possible open Procedure: After having a discussion about risks and benefits and obtaining consent from POA, patient was brought to the OR. SCDs were functioning prior to intubation. Anecef was given 5min prior to incision. General anesthesia was administered. Arms were tucked. A amaro catheter was placed. The abdomen was prepped and draped in the usual sterile fashion. Insufflation was achieved using a Veress needle at Ceron's point (15mmHg). A 5mm port was placed at the umbilicus using an optical view port. Then a 5mm port was placed suprapubically, and a 12mm port was placed in the left lower quadrant. The abdomen was inspected and no injuries were noted. Patient was placed in Trendelenburg and the table was rotated left. Using atraumatic bowel graspers the small bowel was placed on the left side of the abdomen, revealing the cecum and inflammed appendix. The appendix was dissected off the pelvic side wall bluntly. The appendix was grasped and the mesoappendix was taken down using a Ligasure. The base of the appendix was found to be intact. I proceeded to staple off the appendix at its base using a laparoscopic stapler with a blue load. The appendix was then retrieved using an endocatch bag. The staple line on the cecum was inspected, and found to be intact. The abdomen was desufflated and skin was closed using 4-0 monocryl and surgical glue. Amaro was removed at the end of the case. The patient woke up from anesthesia and was transferred to PACU without any complications
[2024-09-01] MEDS: BUPivacaine 0.25% INJ 10 mL INJECTION (18:28)
[2024-09-01] MEDS: lidocaine-epi 1% 20 mL INJ INJECTION (18:28)
--- NOTE | 2024-09-01 19:26 | ANE.PACU2 ---
Inpatient post-anesthesia follow up: Airway intact: Yes Vital signs: Temperature 98.0 F Pulse Rate 81 Respiratory Rate 20 Blood Pressure 113/74 Pulse Oximetry 94 Oxygen Delivery Me thod Room Air Oxygen Flow Rate 6 Fraction of Inspir ed Oxygen Hydration adequate: Yes Nausea and vomiting: No Pain level: 1 Mental status: Baseline
[2024-09-01] MEDS: sodium chloride 0.9% 1,000 ML 100 ML IV (22:03)
[2024-09-02] MEDS: piperacillin-tazobactam 3.375 GM in sodium chloride 0.9% (plus) 50 ML IV ×2 (03:09→09:00)
[2024-09-02 04:00] VITALS: BP 105/65; PULSE 76; RESP 17; TEMP 36.6; O2SAT 95
[2024-09-02 04:04] VITALS: RESP 16
[2024-09-02] MEDS: morphine 4 mg/mL SDV 1 mL IVP (04:04)
[2024-09-02 08:00] VITALS: BP 113/74; PULSE 81; RESP 20; TEMP 36.7; O2SAT 94
--- NOTE | 2024-09-02 09:01 | P.PN_ITS ---
Subjective 2 Subjective: Feeling well No abdominal pain Tolerating p.o. Vitals/I&O/Wt Last Vital Signs Temp 98.0 F 09/02/24 08:00 Pulse 81 09/02/24 08:00 Resp 20 H 09/02/24 08:00 BP 113/74 09/02/24 08:00 Pulse Ox 94 09/02/24 08:00 O2 Del Method Room Air 09/02/24 08:00 O2 Flow Rate 6 09/01/24 18:57 09/01/24 09/02/24 09/02/24 22:59 06:59 14:59 Intake Total 1380 / 1380 50 / 1430 360 / 360 Output Total 400 / 410 Balance 1370 / 1370 -350 / 1020 360 / 360 Weight last 48 hrs Weight 202 lb Weight 200 lb Weight 203 lb Physical Exam 2 Narrative: Chest: Unlabored breathing room air. No lymphadenopathy. Heart: Regular rate and rhythm. Abdomen: Soft, nontender, nondistended. No masses or lymphadenopathy. Data 09/01/24 12:59 09/01/24 12:59 A&P Assessment and plan (1) Acute appendicitis: Plan 34-year-old male status post lap appendectomy. Doing well. Discharging. PDMP PDMP Reviewed: Last Reviewed 09/01/24 19:30 EDT by Quinton Evangelista MD Attestations 2 Medical Necessity Statement*: IV antibiotics and IV pain meds Coding Level of Care Code 38326 Diagnoses Acute appendicitis K35.80 Time Spent (min) 30
--- NOTE | 2024-09-02 09:31 | P.DS_ITS ---
Discharge Providers Date of Admission: 09/01/24 18:01 Date of Discharge: September 02, 2024 Attending Provider at Admission: Quinton Evangelista MD Attending Provider at Discharge: Quinton Evangelista MD Primary Care Provider: Shady Cordoba MD Diagnoses at Discharge Discharge Diagnosis (1) Acute appendicitis: Status: Acute Reason for Visit Reason for Visit: abdominal pain Hospital Course Hospital Course 34-year-old male admitted with acute uncomplicated appendicitis. Proceeded with a lap appendectomy. Doing well. Discharge on postoperative day 1. Physical Exam Narrative: Chest: Unlabored breathing room air. No lymphadenopathy. Heart: Regular rate and rhythm. Abdomen: Soft, nontender, nondistended. No masses or lymphadenopathy. Incisi ons clean dry intact Discharge Data Studies Completed and Pending Completed Studies During Hospitalization Category Date Time Status CT abdomen pelvis w con* [id number] Stat Cat Scan 09/01/24 13:52 Completed Pending at discharge Category Date Time Status Pathology: Surgical [PTH] Routine Pth 09/01/24 18:33 Ordered Radiology Impressions Abdomen/Pelvis CT 09/01/24 13:52 IMPRESSION: Acute appendicitis with no perforation or abscess formation. ADDENDUM: 09/01/24 1522 THIS REPORT CONTAINS FINDINGS THAT MAY BE CRITICAL TO PATIENT CARE. The findings were verbally communicated via telephone conference with VINOD FLORES at 3:20 PM CDT on 09/01/2024. The findings were acknowledged and understood. Laboratory Results WBC 15.71 10^3/uL (3.29-11.43) H 09/01/24 12:59 RBC 5.08 10^6/uL (3.85-5.65) 09/01/24 12:59 Hgb 15.40 g/dL (11.27-16.99) 09/01/24 12:59 Hct 46.6 % (37-53) 09/01/24 12:59 MCV 91.7 fl (82-101) 09/01/24 12:59 MCH 30.3 pg (27-33) 09/01/24 12:59 MCHC 33.0 g/dL (30-55) 09/01/24 12:59 RDW 12.1 % (12.1-15.1) 09/01/24 12:59 Plt Count 181 10^3/cmm (157-399) 09/01/24 12:59 MPV 11.0 fL (7.4-10.4) H 09/01/24 12:59 Neut % (Auto) 81.9 % 09/01/24 12:59 Lymph % (Auto) 11.8 % 09/01/24 12:59 [place] % (Auto) 5.3 % 09/01/24 12:59 Eos % (Auto) 0.4 % 09/01/24 12:59 Baso % (Auto) 0.3 % 09/01/24 12:59 Neut # (Auto) 12.86 10^3/uL (1.8-7.7) H 09/01/24 12:59 Lymph # (Auto) 1.9 10^3/uL (0.8-4.8) 09/01/24 12:59 [place] # (Auto) 0.8 10^3/uL (0.2-0.9) 09/01/24 12:59 Eos # (Auto) 0.1 10^3/uL (0.0-0.8) 09/01/24 12:59 Baso # (Auto) 0.0 10^3/uL (0.0-0.1) 09/01/24 12:59 Nucleated RBC % (auto) 0 % 09/01/24 12:59 Nucleated RBCs # 0.0 /100WBC 09/01/24 12:59 Sodium 137 mmol/L (136-145) 09/01/24 12:59 Potassium 3.9 mmol/L (3.5-5.1) 09/01/24 12:59 Chloride 102 mmol/L (98-107) 09/01/24 12:59 Carbon Dioxide 26 mmol/L (22-29) 09/01/24 12:59 Anion Gap 12.9 (5-19) 09/01/24 12:59 BUN 14 mg/dL (6-20) 09/01/24 12:59 Creatinine 0.7 mg/dL (0.7-1.2) 09/01/24 12:59 GFR Calculation 130.7 mL/min (90-130) H 09/01/24 12:59 Glucose 98 mg/dL (65-115) 09/01/24 12:59 Calculated Osmolality 284 mOsm/kg (285-295) L 09/01/24 12:59 Calcium 9.1 mg/dL (8.5-10.5) 09/01/24 12:59 Total Bilirubin 0.5 mg/dL (0.15-1.2) 09/01/24 12:59 AST 13 U/L (0-40) 09/01/24 12:59 ALT 18 U/L (0-41) 09/01/24 12:59 Alkaline Phosphatase 72 U/L (40-130) 09/01/24 12:59 Total Protein 7.1 g/dL (6.6-8.7) 09/01/24 12:59 Albumin 4.3 g/dL (3.5-5.2) 09/01/24 12:59 Globulin 2.8 g/dL (1.3-4.6) 09/01/24 12:59 Lipase 16 U/L (13-60) 09/01/24 12:59 Vitals Last Vital Signs Temp 98.0 F 09/02/24 08:00 Pulse 81 09/02/24 08:00 Resp 20 H 09/02/24 08:00 BP 113/74 09/02/24 08:00 Pulse Ox 94 09/02/24 08:00 O2 Del Method Room Air 09/02/24 08:00 O2 Flow Rate 6 09/01/24 18:57 Discharge Plan Discharge Patient Disposition: Home Condition: Stable Prescriptions: New oxycodone 5 mg tablet 5 mg PO Q6H PRN (Reason: pain) 5 Days Qty: 10 0RF Continued albuterol sulfate [Ventolin HFA] 90 mcg/actuation HFA aerosol inhaler 2 puff inhalation QID PRN (Reason: shortness of breath or wheezing) Qty: 8.5 0RF Discharge Orders: Discharge Order (Routine); Ordered 09/01/24 Ordered By: Quinton Evangelista Referrals: Quinton Evangelista MD [Physician] - 2 weeks Shady Cordoba MD [Primary Care Provider] - Discharge Diet: Usual diet Discharge Activity: Limit activity as instructed Patient Instructions: Appendicitis (GEN), Opioid Safety Activity Restrictions/Additional Instructions: 1. No heavy exercise or lifting greater than 10lbs for 6 weeks. 2. No pools, saunas, bathtubs for [address] if taking narcotics. 4. You may take over the counter tylenol 650mg every 6 hrs and ibuprofen 400mg every 6 hrs as needed for 5 days in addition to the oxycodone. 5. Follow-up in clinic in 2 weeks. 6. Call the office if you have any concerns or questions. Discharge Attestations Time Spent in Discharge Care*: greater than 30 min Quality Metrics Clinical Quality Measures [ No reported AMI, CVA or VTE this stay] Coding Level of Care Code Acute Code for [facility] Fwd Diagnoses Acute appendicitis K35.80 Time Spent (min) 30
[2024-09-02 11:30] VITALS: BP 113/74; PULSE 81; RESP 20; TEMP 36.7; O2SAT 94
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
== END 2024-09-02 11:45 | disposition home or self-care (01) ==
LOC: ER 15:35 → OR 15:37 → MEDSURG 18:04
PROVIDERS: Admitting Provider Student in an Organized Health Care Education/Training Program; Emergency Provider Emergency Medicine; PCP Family Medicine; Visit Provider Student in an Organized Health Care Education/Training Program
PROC: 0DTJ4ZZ Resection of Appendix, Percutaneous Endoscopic Approach (ICD-10-PCS; CPT 44970; principal; 2024-09-01 18:00)
DX: K35.33 Acute appendicitis with perforation, localized peritonitis, and gangrene, with abscess (principal); Z87.891 Personal history of nicotine dependence; K21.9 Gastro-esophageal reflux disease without esophagitis
CPT/HCPCS: 44970; 74177; 80053; 83690; 85025; 88304; 96365; 96375; 99285; A4216; G0378; J0131; J0690; J1100; J1171; J1200; J1885; J2250; J2270; J2405; J2543; J2704; J3010; J3490; J7030; J9999

== ENCOUNTER → 2024-09-17 14:09 | Outpatient (BNVA) | payer MEDICARE, MEDICAID, SELFPAY | PROVIDERS: PCP Family Medicine; Visit Provider Student in an Organized Health Care Education/Training Program | DX: Z90.49 Acquired absence of other specified parts of digestive tract (principal); Z98.890 Other specified postprocedural states | CPT/HCPCS: 99024 ==

== ENCOUNTER → 2024-11-08 09:43 | Outpatient (BNVA) | payer MEDICARE, MEDICAID, SELFPAY | PROVIDERS: PCP Family Medicine; Visit Provider Student in an Organized Health Care Education/Training Program | DX: K46.9 Unspecified abdominal hernia without obstruction or gangrene (principal) | CPT/HCPCS: 99214 ==

== ENCOUNTER 2024-11-15 11:31 | Emergency (ER) | payer MEDICARE, MEDICAID, SELFPAY ==
[2024-11-15 11:39] VITALS: BP 124/87; PULSE 83; RESP 16; TEMP 36.8; O2SAT 96; BMI 33.7
[2024-11-15 12:31] LABS: Bilirubin Urine Negative (Negative); Blood Urine Negative (Negative); Glucose Urine UA Negative (Normal); Ketones Urine Negative (Negative); Leukocyte Esterase Urine Negative (Negative); Nitrate Urine Negative (Negative); Protein Urine Trace (Negative); Specific Gravity, Urine 1.024 (1.005-1.030); Urine Appearance Clear (CLEAR); Urine Color Yellow (Yellow)
[2024-11-15 12:33] LABS: Add Urine Microscopic? YES; Bacteria Urine None Seen /hpf; RBC Urine 0-2 /hpf (0-2); Squamous Epithelial Cell Urine 0-5 /hpf (0-5); WBC Urine 0-5 /hpf (0-5)
[2024-11-15 12:42] LABS: Add Urine Culture? No
[2024-11-15 13:02] LABS: Basophils # 0.1 10^3/uL (0.0-0.1); Basophils % 0.8 %; Eosinophils # 0.2 10^3/uL (0.0-0.8); Eosinophils % 2.7 %; Hematocrit 44.9 % (37-53); Lymphocytes # 1.8 10^3/uL (0.8-4.8); Lymphocytes % 29.7 %; Mean Corpuscular HGB Conc 33.2 g/dL (30-55); Mean Corpuscular Hemoglobin 30.3 pg (27-33); Mean Corpuscular Volume 91.3 fl (82-101); Mean Platelet Volume 10.5 fL (7.4-10.4); Monocytes # 0.5 10^3/uL (0.2-0.9); Monocytes % 8.1 %; Neutrophils # 3.45 10^3/uL (1.8-7.7); Nucleated Red Blood Cells % 0 %; Platelet Count 185 10^3/cmm (157-399); Red Blood Count 4.92 10^6/uL (3.85-5.65); Red Cell Distribution Width 12.5 % (12.1-15.1); White Blood Count 5.95 10^3/uL (3.29-11.43)
--- NOTE | 2024-11-15 13:06 | W.ED.ABDPA2 ---
HPI - Abdominal Pain General: Chief Complaint: Abdominal Pain Stated Complaint: Groin pain Time Seen by Provider: 11/15/24 11:51 History of Present Illness: 34-year-old male presents to the emergency room with a complaint of right groin pain. Extends down to his testicles no recent trauma in the area no dysuria urgency or frequency had done some heavy lifting and straining. No abdominal pain no diarrhea. Associated Symptoms: Denies chills, dysuria and fever(s) Related Data Home Medications ?Medication ?Instructions ?Recorded ?Confirmed tramadol 50 mg tablet 50 mg PO TID 11/15/24 11/15/24 Previous Rx's ?Medication ?Instructions ?Recorded albuterol sulfate 90 mcg/actuation 2 puff inhalation QID PRN 08/12/24 aerosol inhaler (Ventolin HFA) shortness of breath or wheezing #8.5 grams diclofenac sodium 75 mg 75 mg PO Q12H PRN pain #20 tabs 11/15/24 tablet,delayed release tizanidine 4 mg tablet 4 mg PO Q6H PRN muscle spasticity 11/15/24 #20 tabs Allergies Allergy/AdvReac Type Severity Reaction Status Date / Time No Known Allergies Allergy Verified 11/08/24 09:47 Review of Systems Const: Denies: fever(s) or chills Card: Denies: chest pain Resp: Denies: dyspnea GI: Denies: abdominal pain : Denies: dysuria, urinary frequency or urinary urgency Musc: Denies: neck pain or back pain Skin/Breast: Denies: rash PFSH ED PFSH: Medical History URI (upper respiratory infection) No pertinent past medical history Surgical History No history of previous surgery Family History Family/Other Cancer stomach Social History Smoking and tobacco/nicotine status: never used tobacco/nicotine Quit status (tobacco/nicotine): has quit using Year quit tobacco: 2020 Second hand smoke exposure: No Alcohol intake: current Alcohol intake frequency: few times a week Substance/Drug Use: never Marital status: Life Partner Current occupational status: unemployed Physical Exam Const: GENERAL APPEARANCE: cooperative ORIENTATION/CONSCIOUSNESS: Yes awake, Yes oriented to person, Yes oriented to place and Yes oriented to time HENMT: COMMON NORMALS: normocephalic, atraumatic and hearing grossly normal bilaterally HEAD & SCALP: normocephalic and atraumatic Resp: COMMON NORMALS: normal respiratory effort, No retractions, No use of accessory muscles and clear to auscultation bilaterally AUSCULTATION: clear to auscultation bilaterally Cardio: COMMON NORMALS: regular rate, regular rhythm and No murmurs present (Cardio) RATE: regular rate RHYTHM: regular rhythm GI: COMMON NORMALS: Soft to palpation and No hepatosplenomegaly present AUSCULTATION: Yes normoactive bowel sounds PALPATION: Yes Soft to palpation, No Tenderness to palpation present (GI), No Guarding due to palpation present (GI) and Yes No hepatosplenomegaly present Extremity: COMMON NORMALS: normal to inspection, capillary refill normal, no clubbing, cyanosis or edema, no calf tenderness and no pedal edema Neuro: SENSORIUM/ORIENTATION: Yes oriented to person, Yes oriented to place and Yes oriented to time Skin: COMMON NORMALS: no rashes or lesions noted GENERAL SKIN EXAM: no rashes or lesions noted Course Vital Signs: Vital signs: Vital Signs Temperature 98.2 F 11/15/24 11:39 Pulse Rate 75 11/15/24 14:30 Respiratory Rate 16 11/15/24 11:39 Blood Pressure 116/76 11/15/24 14:30 Pulse Oximetry 100 11/15/24 14:30 Oxygen Delivery Me thod Room Air 11/15/24 11:39 MDM - Abdominal Pain Medical Decision Making Labs unremarkable exam patient has pain with palpation of the pubic tubercle aspect suspect this is a groin muscle strain at the insertion site. Will discharge patient home have him follow-up with primary care as planned. Abdominal exam continues to be benign. Medical Records I reviewed the patient's medical records. Lab Data I reviewed the patient's lab results. 11/15/24 12:57 11/15/24 12:57 Labs/Radiology: Laboratory Results WBC 5.95 10^3/uL (3.29-11.43) 11/15/24 12:57 RBC 4.92 10^6/uL (3.85-5.65) 11/15/24 12:57 Hgb 14.90 g/dL (11.27-16.99) 11/15/24 12:57 Hct 44.9 % (37-53) 11/15/24 12:57 MCV 91.3 fl (82-101) 11/15/24 12:57 MCH 30.3 pg (27-33) 11/15/24 12:57 MCHC 33.2 g/dL (30-55) 11/15/24 12:57 RDW 12.5 % (12.1-15.1) 11/15/24 12:57 Plt Count 185 10^3/cmm (157-399) 11/15/24 12:57 MPV 10.5 fL (7.4-10.4) H 11/15/24 12:57 Neut % (Auto) 58.0 % 11/15/24 12:57 Lymph % (Auto) 29.7 % 11/15/24 12:57 [place] % (Auto) 8.1 % 11/15/24 12:57 Eos % (Auto) 2.7 % 11/15/24 12:57 Baso % (Auto) 0.8 % 11/15/24 12:57 Neut # (Auto) 3.45 10^3/uL (1.8-7.7) 11/15/24 12:57 Lymph # (Auto) 1.8 10^3/uL (0.8-4.8) 11/15/24 12:57 [place] # (Auto) 0.5 10^3/uL (0.2-0.9) 11/15/24 12:57 Eos # (Auto) 0.2 10^3/uL (0.0-0.8) 11/15/24 12:57 Baso # (Auto) 0.1 10^3/uL (0.0-0.1) 11/15/24 12:57 Nucleated RBC % (auto) 0 % 11/15/24 12:57 Nucleated RBCs # 0.0 /100WBC 11/15/24 12:57 Sodium 142 mmol/L (136-145) 11/15/24 12:57 Potassium 4.2 mmol/L (3.5-5.1) 11/15/24 12:57 Chloride 106 mmol/L (98-107) 11/15/24 12:57 Carbon Dioxide 28 mmol/L (22-29) 11/15/24 12:57 Anion Gap 12.2 (5-19) 11/15/24 12:57 BUN 19 mg/dL (6-20) 11/15/24 12:57 Creatinine 0.8 mg/dL (0.7-1.2) 11/15/24 12:57 GFR Calculation 112.0 mL/min (90-130) 11/15/24 12:57 Glucose 97 mg/dL (65-115) 11/15/24 12:57 Calculated Osmolality 296 mOsm/kg (285-295) H 11/15/24 12:57 Calcium 9.1 mg/dL (8.5-10.5) 11/15/24 12:57 Total Bilirubin 0.5 mg/dL (0.15-1.2) 11/15/24 12:57 AST 18 U/L (0-40) 11/15/24 12:57 ALT 29 U/L (0-41) 11/15/24 12:57 Alkaline Phosphatase 66 U/L (40-130) 11/15/24 12:57 Total Protein 6.8 g/dL (6.6-8.7) 11/15/24 12:57 Albumin 4.3 g/dL (3.5-5.2) 11/15/24 12:57 Globulin 2.5 g/dL (1.3-4.6) 11/15/24 12:57 Urine Color Yellow (Yellow) 11/15/24 12:12 Urine Appearance Clear (CLEAR) 11/15/24 12:12 Urine pH 7.0 (5-7) 11/15/24 12:12 Ur Specific [place] 1.024 (1.005-1.030) 11/15/24 12:12 Urine Protein Trace (Negative) A 11/15/24 12:12 Urine Glucose (UA) Negative (Normal) 11/15/24 12:12 Urine Ketones Negative (Negative) 11/15/24 12:12 Urine Blood Negative (Negative) 11/15/24 12:12 Urine Nitrate Negative (Negative) 11/15/24 12:12 Urine Bilirubin Negative (Negative) 11/15/24 12:12 Urine Urobilinogen 1.0 mg/dL (Negative) 11/15/24 12:12 Ur Leukocyte Esterase Negative (Negative) 11/15/24 12:12 Urine RBC 0-2 /hpf (0-2) 11/15/24 12:12 Urine WBC 0-5 /hpf (0-5) 11/15/24 12:12 Ur Squamous Epith Cells 0-5 /hpf (0-5) 11/15/24 12:12 Amorphous Sediment Not Reportable 11/15/24 12:12 Urine Bacteria None seen /hpf (NONE) 11/15/24 12:12 Hyaline Casts 0.40 /lpf 11/15/24 12:12 All radiology interpretation(s) finalized by discharge Discharge Plan Discharge Patient Disposition: Home Clinical Impression: Groin strain Condition: Stable Prescriptions: New tizanidine 4 mg tablet 4 mg PO Q6H PRN (Reason: muscle spasticity) Qty: 20 0RF Rx Instructions: do not exceed 3 doses per 24 hrs diclofenac sodium 75 mg tablet,delayed release (DR/EC) 75 mg PO Q12H PRN (Reason: pain) Qty: 20 0RF No Action albuterol sulfate [Ventolin HFA] 90 mcg/actuation HFA aerosol inhaler 2 puff inhalation QID PRN (Reason: shortness of breath or wheezing) Qty: 8.5 0RF tramadol 50 mg tablet 50 mg PO TID Discharge Orders: Discharge ED (Routine); Ordered 11/15/24 Ordered By: Bartolo Diaz Referrals: Shady Cordoba MD [Primary Care Provider, Family Practice] Discharge Diet: Usual diet Discharge Activity: Increase activity as tolerated Patient Instructions: Abdominal Pain (ED), Opioid Safety, Pain Management Activity Restrictions/Additional Instructions: Thank you for choosing [facility] for your healthcare needs today. It is very important that you follow up as instructed or that you return to the Emergency Department should you have concerns or if your condition changes or worsens in any way. You were seen in the emergency room with complaint of persistent groin pain. Based on your exam suspect you may have a groin muscle strain not the origin of the adductor muscles where they attach to the pubic tubercle. Recommend anti-inflammatories muscle relaxers and follow-up with your primary care doctor. 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
[2024-11-15 13:18] VITALS: BP 118/87; O2SAT 96
[2024-11-15 13:23] LABS: Alanine Aminotransferase 29 U/L (0-41); Albumin Level 4.3 g/dL (3.5-5.2); Alkaline Phosphatase 66 U/L (40-130); Anion Gap 12.2 (5-19); Aspartate Amino Transferase 18 U/L (0-40); Blood Urea Nitrogen 19 mg/dL (6-20); Calcium 9.1 mg/dL (8.5-10.5); Carbon Dioxide 28 mmol/L (22-29); Chloride 106 mmol/L (98-107); Creatinine Clr Calc Pharmacy 138.2468; Globulin 2.5 g/dL (1.3-4.6); Glucose 97 mg/dL (65-115); Osmolality Calculated 296 mOsm/kg (285-295); Potassium 4.2 mmol/L (3.5-5.1); Sodium 142 mmol/L (136-145); Total Bilirubin 0.5 mg/dL (0.15-1.2); Total Protein 6.8 g/dL (6.6-8.7)
[2024-11-15] MEDS: dexamethasone 10 mg/mL INJ IVP (14:19)
[2024-11-15] MEDS: orphenadrine 30 mg/mL Inj 2 mL 60 MG IVP (14:19)
[2024-11-15] MEDS: ketorolac 30 mg/mL INJ IVP (14:19)
[2024-11-15 14:30] VITALS: BP 116/76; PULSE 75; O2SAT 100
== END 2024-11-15 14:48 | disposition home or self-care (01) ==
PROVIDERS: Emergency Provider Family Medicine; PCP Family Medicine
DX: S39.011A Strain of muscle, fascia and tendon of abdomen, initial encounter (principal); Z87.891 Personal history of nicotine dependence; X50.0XXA Overexertion from strenuous movement or load, initial encounter
CPT/HCPCS: 36415; 80053; 81001; 85025; 96374; 96375; 99284; J1100; J1885; J2360

== ENCOUNTER 2024-11-19 16:31 | Outpatient (CLI) | payer MEDICARE, MEDICAID, SELFPAY ==
[2024-11-19] MEDS: iohexol 350 mg/mL 500 mL Btl (per mL) IV (16:57)
--- NOTE | 2024-11-19 17:00 | CT_ITS ---
WS: [id number] CT ABDOMEN AND PELVIS WITH CONTRAST HISTORY: Hernia TECHNIQUE: Imaging performed of the abdomen and pelvis with IV contrast. Single phase imaging of the abdomen. Coronal and sagittal reformats are submitted. All CT scans at [facility] use at least one of these dose optimization techniques: automated exposure control; mA and/or kV adjustment per patient size (includes targeted exams where dose is matched to clinical indication); or iterative reconstruction. IV CONTRAST: Omnipaque 350; 100 mL IV. Oral contrast: No DLP: 679.03 mGy.cm COMPARISON: 09/01/2024 Lower thorax: Lung bases are clear. Heart is normal size. No hiatal hernia. Liver/biliary system: Normal size with no intrahepatic dilatation. Gallbladder: Normal. No gallstones or wall thickening. No pericholecystic fluid. Pancreas: Normal size pancreas and pancreatic duct. No adjacent inflammation. Spleen: Normal size spleen. No mass or infarct. Adrenal glands: Normal. Right kidney: Normal. Left kidney: Normal. Aorta: Normal. Lymphadenopathy: None. Free fluid: None. GI tract: No obstruction. Stomach is markedly distended with food products. Prior appendectomy. Please note there is a small residual stump of the appendix. No colitis or obstruction. Abdominal wall: Very small fat containing umbilical hernia. Pelvis: No free fluid or adenopathy within the pelvis. No inguinal hernias identified. Bones: Unremarkable. CT/CT abdomen pelvis w con* [id number] IMPRESSION: 1. No inguinal hernia identified. 2. Prior appendectomy. Small residual appendiceal stump remains. 3. No acute abdominal or pelvic abnormalities.
== END 2024-11-19 16:32 | disposition home or self-care (01) ==
PROVIDERS: PCP Family Medicine; Visit Provider Student in an Organized Health Care Education/Training Program
DX: K46.9 Unspecified abdominal hernia without obstruction or gangrene (principal)
CPT/HCPCS: 74177

== ENCOUNTER → 2024-12-03 13:30 | Outpatient (BNVA) | payer MEDICARE, MEDICAID, SELFPAY | PROVIDERS: PCP Family Medicine; Visit Provider Student in an Organized Health Care Education/Training Program | DX: K40.90 Unilateral inguinal hernia, without obstruction or gangrene, not specified as recurrent (principal) | CPT/HCPCS: 99213 ==

== ENCOUNTER 2025-01-07 21:46 | Emergency (ER) | payer OTHER, MEDICAID, SELFPAY ==
[2025-01-07 21:50] VITALS: BP 133/90; RESP 18; TEMP 36.8; O2SAT 97; BMI 34.6
--- OUTSIDE RECORDS SUMMARY | 2025-01-07 22:04 | XMS_ITS | Clinical Summary ---
Author Organization [facility] Address [address] [place] [address] Phone Care Team Providers Care Assistant Director Of Plant Operations Name Role Phone Graham Oshea MD Primary Care Provider [phone] Allergies No known active allergies Medications ibuprofen (MOTRIN) 800 mg tablet Take 1 Tablet by mouth 3 times daily as needed. 2020 Active ketorolac tromethamine (TORADOL) 10 mg tablet take 1 tablet by mouth three times daily as needed for pain 07/17/2023 Active Active Problems Problem Noted Date Diagnosed Date Chewing tobacco dependence 03/19/2015 Family History Medical History Relation Name Comments No Known Problems Father No Known Problems Mother Relation Name Status Comments Father Mother Social History Tobacco Use Types Packs/Day Years Used Date Smoking Tobacco: Former Smokeless Tobacco: Former Tobacco Cessation:Counseling Given: No Alcohol Use Standard Drinks/Week Comments Not Currently 4 (1 standard drink = 0.6 oz pur e alcohol) Sex and Gender Information Value Date Recorded Sex Assigned at Not on file 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 Gender Identity Not on file Sexual Orientation Not on file Last Filed Vital Signs Vital Sign Reading Time Taken Comments Blood Pressure 107/69 08/25/2023 1:26 PM CDT Pulse 89 08/25/2023 1:26 PM CDT Temperature 36.7 C (98.1 F) 08/25/2023 1:26 PM CDT Respiratory Rate 18 08/25/2023 1:26 PM CDT Oxygen Saturation 98% 08/25/2023 1:26 PM CDT Inhaled Oxygen Concentration - - Weight 87.2 kg (192 lb 3.2 oz) 08/25/2023 1:26 P M CDT Height 172.7 cm (5' 8 ) 08/25/2023 1:26 PM CDT Body Mass Index 29.22 08/25/2023 1:26 PM CDT Plan of Treatment Health Maintenance Due Date Last Done Comments HPV VACCINES (1 - Male 3-dose series) 02/18/2007 DTAP/TDAP/TD VACCINES (1 - Tdap) 02/18/2011 HEPATITIS B VACCINES (1 of 3 - 19+ 3-dose series) 02/18/2011 [place] Prev entative Visit/Annual Wellness Visit 06/13/2024 INFLUENZA VACCINE (#1) 2025 02/26/2021, 2019 Insurance MEDICAID [place] D[place] COM[place] HMO [facility] [id number] Care Teams Assistant Director Of Plant Operations Relationship Specialty Start Date End Date Graham Oshea MD [address] [address] PCP - General Family Practice 02/27/21
--- OUTSIDE RECORDS SUMMARY | 2025-01-07 22:04 | XMS_ITS | Clinical Summary ---
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 2020 Active Active Problems Problem Noted Date Diagnosed Date Chewing tobacco dependence 03/19/2015 Family History Medical History Relation Name Comments No Known Problems Father No Known Problems Mother Relation Name Status Comments Father Mother Social History Tobacco Use Types Packs/Day Years Used Date Smoking Tobacco: Former Cigarettes Smokeless Tobacco: Former Chew Tobacco Cessation:Ready to Q uit: Yes; Counseling Given: Yes Alcohol Use Standard Drinks/Week Comments Yes 4 (1 standard drink = 0.6 oz pur e alcohol) weekly Sex and Gender Information Value Date Recorded Sex Assigned at Not on file Legal Sex Male 9:30 PM CDT Gender Identity Not on file Sexual Orientation Not on file Occupation Industry Job Start Date Job End Date Not on file Not on file Not on file Not on file Last Filed Vital Signs Vital Sign Reading Time Taken Comments Blood Pressure 108/72 08/20/2020 10:05 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 Pulse 90 03/03/2020 3:50 PM CDT Temperature 36.7 C (98 F) 08/20/2020 9:16 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 Respiratory Rate 18 08/20/2020 10:0 5 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 Oxygen Saturation 98% 08/20/2020 10: 05 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 Inhaled Oxygen Concentration - - Weight 76.6 kg (168 lb 12.8 oz) 08/20/2020 9:16 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 Height 165.1 cm (5' 5 ) 08/20/2020 9:16 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 Body Mass Index 28.09 08/20/2020 9:16 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 Plan of Treatment Health Maintenance Due Date Last Done Comments HPV VACCINES (1 - Male 3-dose series) 02/18/2007 DTAP/TDAP/TD VACCINES (1 - Tdap) 02/18/2011 HEPATITIS B VACCINES (1 of 3 - 19+ 3-dose series) 01/2011 INFLUENZA VACCINE (#1) 2025 02/29/2020 Insurance MEDICAID [place] MED[place]ARE PART A AND B [facility]
[2025-01-07 22:35] VITALS: BP 76/54
--- NOTE | 2025-01-07 22:43 | W.ED.HA ---
HPI - Headache General: Chief Complaint: Headache Stated Complaint: Head pain, passing out, N/V right side leg numb Time Seen by Provider: 01/07/25 22:16 History of Present Illness: Patient is a 34-year-old gentleman without medical issues presents to ER with headache that started about 5 PM tonight. Initially, patient stated he has been working outside, went to go take care of goats, and on the way home, nearly passed out while driving. He felt weakness in his left side. He feels like he is going to pass out when he stands up. He has association of nausea. No stool change. No emesis. No sensation changes. No visual changes other than darkening with the feeling as if he was going to pass out. No chest discomfort. Associated symptoms: Deny chest pain, fever(s), nausea, rash or vomiting Related Data Home Medications ?Medication ?Instructions ?Recorded ?Confirmed tramadol 50 mg tablet 50 mg PO TID 11/15/24 12/03/24 Previous Rx's ?Medication ?Instructions ?Recorded albuterol sulfate 90 mcg/actuation 2 puff inhalation QID PRN 08/12/24 aerosol inhaler (Ventolin HFA) shortness of breath or wheezing #8.5 grams diclofenac sodium 75 mg 75 mg PO Q12H PRN pain #20 tabs 11/15/24 tablet,delayed release tizanidine 4 mg tablet 4 mg PO Q6H PRN muscle spasticity 11/15/24 #20 tabs Allergies Allergy/AdvReac Type Severity Reaction Status Date / Time No Known Allergies Allergy Verified 01/07/25 21:53 Review of Systems General: Reports: 10 or more systems reviewed and unremarkable except in HPI and below Const: Denies: fever(s) or chills ENMT: Denies: throat pain or dry mouth Card: Denies: chest pain or palpitations Resp: Denies: dyspnea or non-productive cough GI: Denies: abdominal pain, nausea or vomiting : Denies: flank pain or difficulty urinating Musc: Denies: neck pain, back pain or extremity pain Skin/Breast: Denies: rash or pruritus Neuro: Reports: headache(s), weakness in extremities, sensory changes, lack of coordination, dizziness, vertigo and difficulty communicating thoughts; Denies: numbness in extremities Psych: Denies: anxiety or depression Endo: Reports: polydipsia and tired all the time PFSH ED PFSH: Medical History (Updated 01/08/25 @ 01:12 by JATINDER Narayanan) URI (upper respiratory infection) No pertinent past medical history Surgical History No history of previous surgery Family History Family/Other Cancer stomach Social History Smoking and tobacco/nicotine status: never used tobacco/nicotine Quit status (tobacco/nicotine): has quit using Year quit tobacco: 2019 Second hand smoke exposure: No Alcohol intake: current Alcohol intake frequency: few times a week Substance/Drug Use: never Marital status: Life Partner Current occupational status: unemployed Physical Exam Const: COMMON NORMALS: no acute distress, average body habitus, patient oriented x3 and no limitations GENERAL APPEARANCE: cooperative and comfortable HENMT: COMMON NORMALS: normocephalic and atraumatic HEAD & SCALP: normocephalic and atraumatic Eye: COMMON NORMALS: Equal, round and reactive pupils present and EOMs intact bilaterally PUPIL: Yes Equal, round and reactive pupils present Neck/C-Spine: COMMON NORMALS: full ROM and no lymphadenopathy CERVICAL SPINE: Yes cervical ROM normal Lymph: LYMPHATIC: no lymphadenopathy noted Resp: COMMON NORMALS: normal respiratory effort, No retractions and clear to auscultation bilaterally AUSCULTATION: clear to auscultation bilaterally Cardio: COMMON NORMALS: regular rate and regular rhythm RATE: regular rate RHYTHM: regular rhythm GI: COMMON NORMALS: Normal to inspection, nondistended, normoactive bowel sounds present, Soft to palpation and non-tender PALPATION: Yes Soft to palpation : COMMON NORMALS: Yes no CVA tenderness BLADDER/KIDNEY EXAM: Yes no CVA tenderness Back/Pelvis: COMMON NORMALS: no CVA tenderness Extremity: COMMON NORMALS: normal to inspection, full ROM, capillary refill normal and no joint enlargement Neuro: ZO COMA SCALE: document GCS findings COMMON NORMALS: patient oriented x3 and CN's II-XII intact bilaterally Psych: COMMON NORMALS: mental status grossly normal and cooperative Skin: COMMON NORMALS: no rashes or lesions noted and no wounds GENERAL SKIN EXAM: no rashes or lesions noted Course Reevaluation(s): Reevaluation #1: Patient states he feels some better, but still has headache Vital Signs: Vital signs: Vital Signs Temperature 98.2 F 01/07/25 21:50 Pulse Rate 62 01/08/25 00:00 Respiratory Rate 16 01/08/25 00:00 Blood Pressure 108/72 01/08/25 00:00 Pulse Oximetry 99 01/08/25 00:00 Oxygen Delivery Me thod Room Air 01/08/25 00:00 MDM - Headache Medical Decision Making Patient was normal tensive complaining of headache, dehydration, chills. Standing blood pressure 76/54. I suspect this is secondary to orthostatic hypotension with his current symptoms. Will give IV fluids, most likely will need of 2 full liters, and Zofran. Routine labs are ordered. Routine labs are in range, creatinine slightly elevated at 1.1, with the last creatinine at 0.8. Suspect hypovolemia related to the hot weather, patient working outside, and caffeinated beverages. He will increase his noncaffeinated beverages, and attempt to stay more in the office at work at the [employer]. All of their questions answered to their satisfaction. Lab Data 01/07/25 23:02 01/07/25 23:02 Laboratory Results WBC 8.28 10^3/uL (3.29-11.43) 01/07/25 23:02 RBC 4.84 10^6/uL (3.85-5.65) 01/07/25 23:02 Hgb 14.50 g/dL (11.27-16.99) 01/07/25 23:02 Hct 44.1 % (37-53) 01/07/25 23:02 MCV 91.1 fl (82-101) 01/07/25 23:02 MCH 30.0 pg (27-33) 01/07/25 23:02 MCHC 32.9 g/dL (30-55) 01/07/25 23:02 RDW 12.2 % (12.1-15.1) 01/07/25 23:02 Plt Count 172 10^3/cmm (157-399) 01/07/25 23:02 MPV 11.1 fL (7.4-10.4) H 01/07/25 23:02 Neut % (Auto) 50.1 % 01/07/25 23:02 Lymph % (Auto) 38.0 % 01/07/25 23:02 [place] % (Auto) 7.2 % 01/07/25 23:02 Eos % (Auto) 3.4 % 01/07/25 23:02 Baso % (Auto) 0.8 % 01/07/25 23:02 Neut # (Auto) 4.14 10^3/uL (1.8-7.7) 01/07/25 23:02 Lymph # (Auto) 3.2 10^3/uL (0.8-4.8) 01/07/25 23:02 [place] # (Auto) 0.6 10^3/uL (0.2-0.9) 01/07/25 23:02 Eos # (Auto) 0.3 10^3/uL (0.0-0.8) 01/07/25 23:02 Baso # (Auto) 0.1 10^3/uL (0.0-0.1) 01/07/25 23:02 Nucleated RBC % (auto) 0 % 01/07/25 23:02 Nucleated RBCs # 0.0 /100WBC 01/07/25 23:02 Sodium 144 mmol/L (136-145) 01/07/25 23:02 Potassium 3.9 mmol/L (3.5-5.1) 01/07/25 23:02 Chloride 105 mmol/L (98-107) 01/07/25 23:02 Carbon Dioxide 28 mmol/L (22-29) 01/07/25 23:02 Anion Gap 14.9 (5-19) 01/07/25 23:02 BUN 19 mg/dL (6-20) 01/07/25 23:02 Creatinine 1.1 mg/dL (0.7-1.2) 01/07/25 23:02 GFR Calculation 77.6 mL/min (90-130) L 01/07/25 23:02 Glucose 98 mg/dL (65-115) 01/07/25 23:02 Calculated Osmolality 300 mOsm/kg (285-295) H 01/07/25 23:02 Calcium 9.2 mg/dL (8.5-10.5) 01/07/25 23:02 Total Bilirubin 0.2 mg/dL (0.15-1.2) 01/07/25 23:02 AST 15 U/L (0-40) 01/07/25 23:02 ALT 21 U/L (0-41) 01/07/25 23:02 Alkaline Phosphatase 68 U/L (40-130) 01/07/25 23:02 Creatine Kinase 106 U/L (39-308) 01/07/25 23:02 Total Protein 6.3 g/dL (6.6-8.7) L 01/07/25 23:02 Albumin 4.1 g/dL (3.5-5.2) 01/07/25 23:02 Globulin 2.2 g/dL (1.3-4.6) 01/07/25 23:02 Urine Color Yellow (Yellow) 01/07/25 23:02 Urine Appearance Clear (CLEAR) 01/07/25 23:02 Urine pH 6.5 (5-7) 01/07/25 23:02 Ur Specific [place] 1.025 (1.005-1.030) 01/07/25 23:02 Urine Protein Negative (Negative) 01/07/25 23:02 Urine Glucose (UA) Negative (Normal) 01/07/25 23:02 Urine Ketones Trace (Negative) 01/07/25 23:02 Urine Blood Negative (Negative) 01/07/25 23:02 Urine Nitrate Negative (Negative) 01/07/25 23:02 Urine Bilirubin Negative (Negative) 01/07/25 23:02 Urine Urobilinogen 1.0 mg/dL (Negative) 01/07/25 23:02 Ur Leukocyte Esterase Negative (Negative) 01/07/25 23:02 Urine RBC 0-2 /hpf (0-2) 01/07/25 23:02 Urine WBC 0-5 /hpf (0-5) 01/07/25 23:02 Ur Squamous Epith Cells 0-5 /hpf (0-5) 01/07/25 23:02 Amorphous Sediment Not Reportable 01/07/25 23:02 Urine Bacteria None seen /hpf (NONE) 01/07/25 23:02 Hyaline Casts 0.40 /lpf 01/07/25 23:02 No radiology studies performed this visit Discharge Plan Discharge Patient Disposition: Home Clinical Impression: Orthostatic hypotension Condition: Stable Prescriptions: No Action albuterol sulfate [Ventolin HFA] 90 mcg/actuation HFA aerosol inhaler 2 puff inhalation QID PRN (Reason: shortness of breath or wheezing) Qty: 8.5 0RF tramadol 50 mg tablet 50 mg PO TID tizanidine 4 mg tablet 4 mg PO Q6H PRN (Reason: muscle spasticity) Qty: 20 0RF Rx Instructions: do not exceed 3 doses per 24 hrs diclofenac sodium 75 mg tablet,delayed release (DR/EC) 75 mg PO Q12H PRN (Reason: pain) Qty: 20 0RF Discharge Orders: Discharge ED (Routine); Ordered 01/08/25 Ordered By: Agnes Torrez Referrals: Shady Cordoba MD [Primary Care Provider, Family Practice] Discharge Diet: Usual diet Discharge Activity: Limit activity as instructed Patient Instructions: Dehydration (ED), Hypotension (ED), Patient Portal & Zee Instructions Activity Restrictions/Additional Instructions: Continue with electrolyte replacement, lemonade's, noncaffeinated beverages, IV hydration during the day. 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
[2025-01-07] MEDS: ondansetron 2 mg/ML SDV 2 mL 4 MG IVP (23:07)
[2025-01-07 23:12] LABS: Glucose Urine UA Negative (Normal); Nitrate Urine Negative (Negative); Specific Gravity, Urine 1.025 (1.005-1.030)
[2025-01-07 23:14] LABS: Add Urine Microscopic? YES
[2025-01-07 23:22] LABS: Hematocrit 44.1 % (37-53); Hemoglobin 14.50 g/dL (11.27-16.99); Mean Corpuscular HGB Conc 32.9 g/dL (30-55); Mean Corpuscular Hemoglobin 30.0 pg (27-33); Mean Corpuscular Volume 91.1 fl (82-101); Nucleated Red Blood Cells % 0 %; Platelet Count 172 10^3/cmm (157-399); Red Blood Count 4.84 10^6/uL (3.85-5.65); White Blood Count 8.28 10^3/uL (3.29-11.43)
[2025-01-07 23:32] LABS: Alanine Aminotransferase 21 U/L (0-41); Albumin Level 4.1 g/dL (3.5-5.2); Alkaline Phosphatase 68 U/L (40-130); Anion Gap 14.9 (5-19); Aspartate Amino Transferase 15 U/L (0-40); Blood Urea Nitrogen 19 mg/dL (6-20); Calcium 9.2 mg/dL (8.5-10.5); Carbon Dioxide 28 mmol/L (22-29); Chloride 105 mmol/L (98-107); Creatinine Clr Calc Pharmacy 101.7802; Globulin 2.2 g/dL (1.3-4.6); Glucose 98 mg/dL (65-115); Osmolality Calculated 300 mOsm/kg (285-295); Potassium 3.9 mmol/L (3.5-5.1); Sodium 144 mmol/L (136-145); Total Protein 6.3 g/dL (6.6-8.7)
[2025-01-08] VITALS: BP 108/72; PULSE 62; RESP 16; O2SAT 99
[2025-01-08 01:27] VITALS: BP 92/58; PULSE 63; RESP 16; O2SAT 98
== END 2025-01-08 01:28 | disposition home or self-care (01) ==
PROVIDERS: Emergency Provider Physician Assistant; PCP Family Medicine
DX: I95.1 Orthostatic hypotension (principal); Z87.891 Personal history of nicotine dependence
CPT/HCPCS: 80053; 81001; 82550; 85025; 96361; 96374; 96375; 99284; J1100; J1885; J2405; J7030

== ENCOUNTER 2025-03-13 12:22 | Emergency (ER) | payer OTHER, MEDICAID, SELFPAY ==
--- OUTSIDE RECORDS SUMMARY | 2025-03-13 12:28 | XMS_ITS | Clinical Summary ---
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
--- OUTSIDE RECORDS SUMMARY | 2025-03-13 12:28 | XMS_ITS | Clinical Summary ---
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
[2025-03-13 12:29] VITALS: BP 129/84; PULSE 78; TEMP 36.8; O2SAT 97
--- NOTE | 2025-03-13 13:25 | ED_ITS ---
HPI - Male Genitourinary 2 General: Chief complaint: Urogenital-Male Stated complaint: Private area Painful Time Seen by Provider: 03/13/25 13:03 Source: patient Mode of arrival: ambulatory Limitations: no limitations History of Present Illness: Patient is a 35-year-old male with no pertinent past medical history reporting to the emergency department complaining of right testicular pain for months but worsening over the past few days. Overall pain has been intermittent until it became more constant a couple days ago, does not report any preceding event such as trauma. He has no concerns for STD, no penile discharge or dysuria/hematuria. No abdominal pain, he states the pain is solely in his right testicle but is not reporting any swelling. Denies history of hernia. No fevers or chills, nausea or vomiting, or any other symptoms. He does note that it is made worse with certain positions and with sitting. Vital stable at this time. He has not taken any medications. MD Complaint: testicle pain Onset (ago): month(s) Duration: progressively worsening Location: right testicle Severity: moderate Quality: aching Exacerbating factors: other (sitting/certain positions) Associated symptoms: Deny dysuria, hematuria, nausea or vomiting Related Data Home Medications ?Medication ?Instructions ?Recorded ?Confirmed tramadol 50 mg tablet 50 mg PO TID 11/15/24 Previous Rx's ?Medication ?Instructions ?Recorded albuterol sulfate 90 mcg/actuation 2 puff inhalation Q ID PRN 08/12/24 aerosol inhaler (Ventolin HFA) shortness of breath or wheezing #8.5 grams diclofenac sodium 75 mg 75 mg PO Q12H PRN pain #20 t abs 11/15/24 tablet,delayed release tizanidine 4 mg tablet 4 mg PO Q6H PRN muscle spast icity 11/15/24 #20 tabs Allergies Allergy/AdvReac Type Severity Reaction Status Date / Time No Known Allergies Allergy Verified 03/13/25 12:33 Review of Systems 2 General: Reports: 10 or more systems reviewed and unremarkable except in HPI and below Const: Denies: fever(s), chills, change in appetite, change in weight or diaphoresis ENMT: Denies: throat pain or hoarseness Card: Denies: chest pain, palpitations or lightheadedness Resp: Denies: dyspnea, productive cough or wheezing GI: Denies: abdominal pain, nausea, vomiting, diarrhea, constipation, bloating, change in stool character or hematochezia : Reports: testicular pain; Denies: flank pain, difficulty urinating, dysuria, urinary frequency, urinary urgency, hematuria, penile discharge or scrotal swelling Musc: Denies: neck pain or back pain Skin/Breast: Denies: rash or new lesions Neuro: Denies: headache(s) or dizziness PFSH ED 2 PFSH: Medical History URI (upper respiratory infection) No pertinent past medical history Surgical History No history of previous surgery Family History Family/Other Cancer stomach Social History Smoking and tobacco/nicotine status: never used tobacco/nicotine Quit status (tobacco/nicotine): has quit using Year quit tobacco: 2019 Second hand smoke exposure: No Alcohol intake: current Alcohol intake frequency: few times a week Substance/Drug Use: never Marital status: Life Partner Current occupational status: unemployed Physical Exam 2 Const: COMMON NORMALS: no acute distress, average body habitus, no limitations, healthy appearing and well nourished GENERAL APPEARANCE: c ooperative and comfortable ORIENTATION/CONSCIOUSNESS: Yes awake Neck/C-Spine: COMMON NORMALS: full ROM and supple Resp: COMMON NORMALS: normal respiratory effort, No retractions, No use of accessory muscles and clear to auscultation bilaterally AUSCULTATION: clear to auscultation bilaterally, no crackles, no rales, no rhonchi and no wheezes Cardio: COMMON NORMALS: regular rate, regular rhythm, No gallops present (Cardio), No clicks present (Cardio), No murmurs present (Cardio) and No rub (Cardio) RATE: regular rate RHYTHM: regular rhythm GI: COMMON NORMALS: Normal to inspection, nondistended, normoactive bowel sounds present, Soft to palpation, non-tender, No hepatosplenomegaly present and no masses AUSCULTATION: Yes normoactive bowel sounds PALPATION: Yes Soft to palpation, No Guarding due to palpation present (GI), No Rigid due to palpation and Yes No hepatosplenomegaly present RECTAL EXAM: Yes deferred : OTHER: Evaluation of the scrotum does not reveal any edema or erythema. Mild tenderness to palpation to the right testicle with no palpable mass. No obvious palpable hernia. Extremity: COMMON NORMALS: normal to inspection and full ROM Skin: COMMON NORMALS: no rashes or lesions noted GENERAL SKIN EXAM: no rashes or lesions noted Course 2 Vital Signs: Vital signs: Vital Signs Temperature 98.3 F 03/13/25 12:29 Pulse Rate 77 03/13/25 14:21 Respiratory Rate 18 03/13/25 13:44 Blood Pressure 124/68 03/13/25 14:21 Pulse Oximetry 99 03/13/25 14:21 Oxygen Delivery Me thod Room Air 03/13/25 14:21 MDM - Male Medical Decision Making Patient presenting with chronic right testicular pain, overalls been intermittent but constant today. No other symptoms however, no fevers, chills, abdominal pain, or nausea/vomiting. No urinary symptoms and he had no concerns for STD. Vital stable, nontoxic-appearing on exam. Testicular exam does not show any scrotal swelling, redness, or significant reproducible tenderness palpation. No palpable hernia that I can appreciate at this time. CBC and CMP are unremarkable, as well as urinalysis which does not show any signs of infection. Ultrasound of the scrotum does not reveal any acute testicular abnormalities. He is given Motrin here which does improve his pain, this does not appear to be anything acute but I will refer him to urology for further outpatient management. He agrees to this plan, and knows to return with any worse. Lab Data 03/13/25 13:38 03/13/25 13:38 Radiology Impressions Scrotum Ultrasound 03/13/25 13:30 IMPRESSION: NORMAL TESTICULAR ULTRASOUND. No RIGHT testicular abnormality identified. Laboratory Results WBC 7.55 10^3/uL (3.29-11.43) 03/13/25 13:38 RBC 4.89 10^6/uL (3.85-5.65) 03/13/25 13:38 Hgb 14.90 g/dL (11.27-16.99) 03/13/25 13:38 Hct 44.6 % (37-53) 03/13/25 13:38 MCV 91.2 fl (82-101) 03/13/25 13:38 MCH 30.5 pg (27-33) 03/13/25 13:38 MCHC 33.4 g/dL (30-55) 03/13/25 13:38 RDW 12.1 % (12.1-15.1) 03/13/25 13:38 Plt Count 185 10^3/cmm (157-399) 03/13/25 13:38 MPV 10.8 fL (7.4-10.4) H 03/13/25 13:38 Neut % (Auto) 62.4 % 03/13/25 13:38 Lymph % (Auto) 28.5 % 03/13/25 13:38 [place] % (Auto) 6.9 % 03/13/25 13:38 Eos % (Auto) 1.2 % 03/13/25 13:38 Baso % (Auto) 0.7 % 03/13/25 13:38 Neut # (Auto) 4.72 10^3/uL (1.8-7.7) 03/13/25 13:38 Lymph # (Auto) 2.2 10^3/uL (0.8-4.8) 03/13/25 13:38 [place] # (Auto) 0.5 10^3/uL (0.2-0.9) 03/13/25 13:38 Eos # (Auto) 0.1 10^3/uL (0.0-0.8) 03/13/25 13:38 Baso # (Auto) 0.1 10^3/uL (0.0-0.1) 03/13/25 13:38 Nucleated RBC % (auto) 0 % 03/13/25 13:38 Nucleated RBCs # 0.0 /100WBC 03/13/25 13:38 Sodium 142 mmol/L (136-145) 03/13/25 13:38 Potassium 4.1 mmol/L (3.5-5.1) 03/13/25 13:38 Chloride 106 mmol/L (98-107) 03/13/25 13:38 Carbon Dioxide 29 mmol/L (22-29) 03/13/25 13:38 Anion Gap 11.1 (5-19) 03/13/25 13:38 BUN 18 mg/dL (6-20) 03/13/25 13:38 Creatinine 0.8 mg/dL (0.7-1.2) 03/13/25 13:38 GFR Calculation 111.3 mL/min (90-130) 03/13/25 13:38 Glucose 95 mg/dL (65-115) 03/13/25 13:38 Calculated Osmolality 296 mOsm/kg (285-295) H 03/13/25 13:38 Calcium 9.2 mg/dL (8.5-10.5) 03/13/25 13:38 Total Bilirubin 0.6 mg/dL (0.15-1.2) 03/13/25 13:38 AST 15 U/L (0-40) 03/13/25 13:38 ALT 19 U/L (0-41) 03/13/25 13:38 Alkaline Phosphatase 66 U/L (40-130) 03/13/25 13:38 Total Protein 6.9 g/dL (6.6-8.7) 03/13/25 13:38 Albumin 4.4 g/dL (3.5-5.2) 03/13/25 13:38 Globulin 2.5 g/dL (1.3-4.6) 03/13/25 13:38 Urine Color Yellow (Yellow) 03/13/25 13:30 Urine Appearance Clear (CLEAR) 03/13/25 13:30 Urine pH 7.5 (5-7) 03/13/25 13:30 Ur Specific [place] 1.024 (1.005-1.030) 03/13/25 13:30 Urine Protein 1+ (Negative) A 03/13/25 13:30 Urine Glucose (UA) Negative (Normal) 03/13/25 13:30 Urine Ketones Trace (Negative) 03/13/25 13:30 Urine Blood Negative (Negative) 03/13/25 13:30 Urine Nitrate Negative (Negative) 03/13/25 13:30 Urine Bilirubin Negative (Negative) 03/13/25 13:30 Urine Urobilinogen 1.0 mg/dL (Negative) 03/13/25 13:30 Ur Leukocyte Esterase Negative (Negative) 03/13/25 13:30 Urine RBC None /hpf (0-2) 03/13/25 13:30 Urine WBC None /hpf (0-5) 03/13/25 13:30 Ur Squamous Epith Cells None /hpf (0-5) 03/13/25 13:30 Amorphous Sediment Not Reportable 03/13/25 13:30 Urine Bacteria None /hpf (NONE) 03/13/25 13:30 Urine Mucus 1+ /hpf 03/13/25 13:30 Urine Sperm 1+ /hpf 03/13/25 13:30 All radiology interpretation(s) finalized by discharge Discharge Plan Discharge Patient Disposition: Home Clinical Impression: Pain in right testicle Condition: Stable Prescriptions: No Action albuterol sulfate [Ventolin HFA] 90 mcg/actuation HFA aerosol inhaler 2 puff inhalation QID PRN (Reason: shortness of breath or wheezing) Qty: 8.5 0RF tramadol 50 mg tablet 50 mg PO TID tizanidine 4 mg tablet 4 mg PO Q6H PRN (Reason: muscle spasticity) Qty: 20 0RF Rx Instructions: do not exceed 3 doses per 24 hrs diclofenac sodium 75 mg tablet,delayed release (DR/EC) 75 mg PO Q12H PRN (Reason: pain) Qty: 20 0RF Discharge Orders: Discharge ED (Routine); Ordered 03/13/25 Ordered By: Jovanni Jonas Referrals: Shady Cordoba MD [Primary Care Provider, [facility]] Patient Instructions: Patient Portal & Zee Instructions Activity Restrictions/Additional Instructions: Testicular Pain Discharge Discharge Instructions: Chronic Intermittent Testicular Pain - Diagnosis and Current Status: The patient presented with intermittent right testicular pain for several months. Laboratory studies, urinalysis, and scrotal ultrasound did not reveal any acute abnormalities. No evidence of testicular torsion, epididymitis, orchitis, hydrocele, varicocele, malignancy, or other acute scrotal pathology was identified. 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 - Immediate Management: - No acute intervention is required at this time. - Conservative management is appropriate pending urology evaluation. - First-line symptomatic treatment includes nonsteroidal anti-inflammatory drugs (NSAIDs) as needed for pain control, unless contraindicated. - Scrotal support (e.g., supportive underwear) may provide symptomatic relief. - Reassurance regarding the absence of acute or emergent findings is recommended. - Activity and Lifestyle: - The patient may resume normal activities as tolerated. - Avoid activities that exacerbate pain (e.g., heavy lifting, prolonged standing). - Monitor for any new or worsening symptoms. - Follow-Up and Referral: - Urology referral is in place for further evaluation and management. - The urologist may consider additional diagnostic workup, including assessment for musculoskeletal or referred pain etiologies, as a significant proportion of CSCP cases may have non-scrotal sources. - If pain persists or worsens, or if new symptoms develop (e.g., acute severe pain, swelling, redness, fever, nausea, vomiting), prompt re-evaluation is indicated to rule out emergent conditions such as testicular torsion or infection. - Patient Education: - Chronic testicular pain is a recognized clinical entity; the underlying cause is often idiopathic, but may be related to prior infection, trauma, or referred pain. - Most cases are managed conservatively; surgical intervention is reserved for refractory cases after specialist evaluation. - The prognosis is generally favorable, but recurrence or persistence of symptoms may occur. - When to Seek Immediate Care: - Sudden onset of severe testicular pain. - Swelling, redness, or warmth of the scrotum. - Fever, chills, or systemic symptoms. - Nausea or vomiting associated with scrotal pain. Summary: The patient is stable for discharge with no acute findings. Conservative management and urology follow-up are indicated. The patient is advised to monitor symptoms and seek immediate care for any acute changes. 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
--- NOTE | 2025-03-13 13:30 | US_ITS ---
WS: [id number] TESTICULAR ULTRASOUND HISTORY: right testicular pain COMPARISON: 11/11/2019 TECHNIQUE: Real-time and color Doppler imaging utilized to perform a testicular ultrasound. Right testicle: 2.5 cm x 4.3 cm x 2.3 cm. Normal size and echogenicity. No mass or torsion. Normal color Doppler is present throughout. Systolic and diastolic velocities are both present. No significant hydrocele. Right epididymis: Normal epididymis with no increased vascularity. Left testicle: 4.2 cm x 2.5 cm x 3.1 cm. Normal size and echogenicity. No mass or torsion. Normal color Doppler is present throughout. Systolic and diastolic velocities are both present. No significant hydrocele. Left epididymis: Normal epididymis with no increased vascularity. US/US scrotum [id number] IMPRESSION: NORMAL TESTICULAR ULTRASOUND. No RIGHT testicular abnormality identified.
[2025-03-13 13:44] VITALS: BP 108/96; PULSE 62; RESP 18; O2SAT 96
[2025-03-13 13:44] LABS: Hematocrit 44.6 % (37-53); Hemoglobin 14.90 g/dL (11.27-16.99); Mean Corpuscular HGB Conc 33.4 g/dL (30-55); Mean Corpuscular Hemoglobin 30.5 pg (27-33); Mean Corpuscular Volume 91.2 fl (82-101); Nucleated Red Blood Cells % 0 %; Platelet Count 185 10^3/cmm (157-399); Red Blood Count 4.89 10^6/uL (3.85-5.65); White Blood Count 7.55 10^3/uL (3.29-11.43)
[2025-03-13 13:45] LABS: Glucose Urine UA Negative (Normal); Nitrate Urine Negative (Negative); Specific Gravity, Urine 1.024 (1.005-1.030)
[2025-03-13 14:02] LABS: Alanine Aminotransferase 19 U/L (0-41); Albumin Level 4.4 g/dL (3.5-5.2); Alkaline Phosphatase 66 U/L (40-130); Anion Gap 11.1 (5-19); Aspartate Amino Transferase 15 U/L (0-40); Blood Urea Nitrogen 18 mg/dL (6-20); Calcium 9.2 mg/dL (8.5-10.5); Carbon Dioxide 29 mmol/L (22-29); Chloride 106 mmol/L (98-107); Creatinine Clr Calc Pharmacy 140.6745; Globulin 2.5 g/dL (1.3-4.6); Glucose 95 mg/dL (65-115); Osmolality Calculated 296 mOsm/kg (285-295); Potassium 4.1 mmol/L (3.5-5.1); Sodium 142 mmol/L (136-145); Total Protein 6.9 g/dL (6.6-8.7)
[2025-03-13 14:07] LABS: Add Urine Microscopic? YES
[2025-03-13 14:21] VITALS: BP 124/68; PULSE 77; O2SAT 99
--- NOTE | 2025-03-14 07:55 | DCPLANNER ---
faxed urology referral to [facility] - ultrasound pushed.
== END 2025-03-13 14:47 | disposition home or self-care (01) ==
PROVIDERS: Emergency Provider Physician Assistant; PCP Family Medicine
DX: N50.811 Right testicular pain (principal); Z87.891 Personal history of nicotine dependence
CPT/HCPCS: 36415; 76870; 80053; 81001; 85025; 99284; J9999

== ENCOUNTER 2025-04-14 11:35 | Emergency (ER) | payer OTHER, MEDICAID, SELFPAY ==
--- NOTE | 2025-04-14 11:36 | ECG_ITS ---
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 Measurements Intervals [place] Rate: 92 P: 51 RI: 153 QRS: 73 QRSD: 81 T: 42 QT: 322 QTc: 400 Interpretive Statements SINUS RHYTHM Compared to ECG 12/02/2022 00:21:36 No significant changes Electronically Signed On 04-14-2025 14:06:20 BUTTER LIQUEFIER by Mike Rushing M.D. [email or web address] [id number]
--- OUTSIDE RECORDS SUMMARY | 2025-04-14 11:40 | XMS_ITS | Clinical Summary ---
Author Organization Angélica Delvalle [facility] Address [address] [facility] [address] [place] [address] Phone Care Team Providers Care Pharmaceutical Process Engineer Name Role Phone Unavailable Primary Care Provider [...] Comments Blood Pressure 108/72 08/20/2020 10:05 PM AIR CARGO AGENT Pulse 90 03/03/2020 3:50 PM CDT Temperature 36.7 C (98 F) 08/20/2020 9:16 PM AIR CARGO AGENT Respiratory Rate 18 08/20/2020 10:0 5 PM AIR CARGO AGENT Oxygen Saturation 98% 08/20/2020 10: 05 PM AIR CARGO AGENT Inhaled Oxygen Concentration - - Weight 76.6 kg (168 lb 12.8 oz) 08/20/2020 9:16 PM AIR CARGO AGENT Height 165.1 cm (5' 5 ) 08/20/2020 9:16 PM AIR CARGO AGENT Body Mass Index 28.09 08/20/2020 9:16 PM AIR CARGO AGENT Plan of Treatment Health Maintenance Due Date Last Done Comments DTAP/TDAP/TD VACCINES (1 - Tdap) 02/18/2011 HEPATITIS B VACCINES (1 of 3 - 19+ 3-dose series) 01/2011 HPV VACCINES (1 - 3-dose SCDM series) 02/18/2019 INFLUENZA VACCINE (#1) 2025 Insurance MEDICAID [place] MED[place] PART A AND B [facility]
--- OUTSIDE RECORDS SUMMARY | 2025-04-14 11:40 | XMS_ITS | Clinical Summary ---
Author Organization Angélica Delvalle [facility] Address [address] [facility] [address] [place] [address] Phone Care Team Providers Care Grinder And Honer Operator Automatic Name Role Phone Graham Oshea MD Primary Care Provider [phone] Allergies No known active allergies Medications ibuprofen (MOTRIN) 800 mg tablet Take 1 Tablet by mouth 3 times daily as needed. 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 [id number] Care Teams Grinder And Honer Operator Automatic Relationship Specialty Start Date End Date Graham Oshea MD [address] [phone] PCP - General Family Practice 02/27/21
[2025-04-14 11:45] VITALS: BP 119/84; PULSE 94; RESP 16; TEMP 37.1; O2SAT 93; BMI 34.2
--- NOTE | 2025-04-14 12:23 | W.ED.GENADLT ---
HPI - General Adult General: Chief complaint: Dizziness Stated complaint: BP issues feel like passing out Time Seen by Provider: 04/14/25 11:59 Source: patient and family (girlfriend) Mode of arrival: ambulatory Limitations: no limitations History of Present Illness: Patient is a 35-year-old male presents to ED today along with his girlfriend for an episode where he felt like he might pass out. Patient states he woke up this morning not feeling good complaining of fatigue. They were reportedly at [employer] eating breakfast when he became dizzy and lightheaded and folic he was going to pass out. He felt like his vision was a little blurry. Patient upon arrival does feel better apart from continuing to feel tired. Mother states he has had similar episodes previously. Patient tells me he has had episodes intermittently while at work over the past several months. He has not followed up with his primary care provider for these episodes. He was seen here once in the ED for similar symptoms and diagnosed with orthostatic hypotension. He has no focal deficits upon arrival. Vital signs are stable. Onset (ago): hour(s) Severity: mild Relieving factors: none Exacerbating factors: none Associated symptoms: Reports nausea (resolved); Deny chest pain, dyspnea, headache(s), malaise, rash, palpitations, syncope or vomiting Treatments prior to arrival: none Related Data Home Medications ?Medication ?Instructions ?Recorded ?Confirmed No Known Home Medications 04/14/25 04/14/25 Allergies Allergy/AdvReac Type Severity Reaction Status Date / Time No Known Allergies Allergy Verified 04/14/25 11:55 Review of Systems Const: Reports: fatigue; Denies: fever(s), chills, body aches or malaise Eyes: Reports: change in vision (resolved); Denies: blurry vision, photophobia, floaters or seeing flashes Card: Denies: chest pain, palpitations, irregular heart rhythm, lightheadedness, syncope or dyspnea on exertion Resp: Denies: dyspnea, productive cough or pain on inspiration GI: Reports: nausea (resolved); Denies: abdominal pain, vomiting, heartburn or diarrhea : Denies: flank pain, difficulty urinating or dysuria Musc: Denies: neck pain, back pain, extremity pain, extremity swelling or joint pain Skin/Breast: Denies: rash Neuro: Reports: dizziness (improved); Denies: headache(s), numbness in extremities, weakness in extremities, sensory changes, lack of coordination, difficulty walking, frequent falls, vertigo, behavioral changes, Slurred speech present, difficulty communicating thoughts or seizure-like activity PFSH ED PFSH: Medical History URI (upper respiratory infection) No pertinent past medical history Surgical History No history of previous surgery Family History Family/Other Cancer stomach Social History Smoking and tobacco/nicotine status: never used tobacco/nicotine Quit status (tobacco/nicotine): has quit using Year quit tobacco: 2019 Second hand smoke exposure: No Alcohol intake: current Alcohol intake frequency: few times a week Substance/Drug Use: never Marital status: Life Partner Current occupational status: unemployed Physical Exam Const: COMMON NORMALS: no acute distress, average body habitus, patient oriented x3, no limitations, healthy appearing, alert and well nourished GENERAL APPEARANCE: cooperative ORIENTATION/CONSCIOUSNESS: Yes awake, Yes oriented to person, Yes oriented to place and Yes oriented to time OTHER: baseline cognitive delay per mother HENMT: COMMON NORMALS: normocephalic and atraumatic HEAD & SCALP: normal to inspection, normocephalic and atraumatic FACE & SINUS: normal facial exam and face symmetric Eye: COMMON NORMALS: Equal, round and reactive pupils present and EOMs intact bilaterally GENERAL EYE: appearance normal, both eyes and all related structures and normal light reflex PUPIL: Yes Equal, round and reactive pupils present DIRECT OPHTHALMOSCOPY: Yes normal light reflex Neck/C-Spine: COMMON NORMALS: full ROM, no lymphadenopathy, supple and no meningeal signs Chest: COMMONS NORMALS: normal inspection of the chest and normal palpation of entire chest wall Resp: COMMON NORMALS: normal respiratory effort and clear to auscultation bilaterally AUSCULTATION: clear to auscultation bilaterally Cardio: COMMON NORMALS: regular rate and regular rhythm RATE: regular rate RHYTHM: regular rhythm GI: COMMON NORMALS: Normal to inspection, nondistended, normoactive bowel sounds present, Soft to palpation, non-tender, No hepatosplenomegaly present and no masses PALPATION: Yes Soft to palpation and Yes No hepatosplenomegaly present : COMMON NORMALS: Yes no CVA tenderness BLADDER/KIDNEY EXAM: Yes no CVA tenderness Back/Pelvis: COMMON NORMALS: no CVA tenderness, thoracic and lumbar spine normal to inspection and no thoracic nor lumbar tenderness Extremity: COMMON NORMALS: normal to inspection GENERAL: Yes normal exam except as noted Neuro: EFREN COMA SCALE: document GCS findings [place] coma scale eye opening: Spontaneous [place] coma scale verbal response: Orientated [place] coma scale motor response: Obey commands Efren coma scale total score: 15 COMMON NORMALS: patient oriented x3, CN's II-XII intact bilaterally, moves all extremities, no focal motor deficits, no sensory deficits noted and gait normal SENSORIUM/ORIENTATION: Yes alert, Yes oriented to person, Yes oriented to place and Yes oriented to time MENINGEAL SIGNS: Yes no meningeal signs SPEECH: speech normal GAIT: Yes Normal gait present MOTOR EXAM: 5/5 motor strength present throughout Skin: COMMON NORMALS: no rashes or lesions noted GENERAL SKIN EXAM: no rashes or lesions noted Course Vital Signs: Vital signs: Vital Signs Temperature 98.8 F 04/14/25 11:45 Pulse Rate 74 04/14/25 13:08 Respiratory Rate 16 04/14/25 11:45 Blood Pressure 122/76 04/14/25 13:08 Pulse Oximetry 93 04/14/25 11:45 [facility] - General Adult Medical Decision Making Patient clinically appears in no acute distress. His vital signs are stable. Orthostatics are normal. Patient has had similar episodes previously. Most of his symptoms are resolved at time of my examination. Workup here was benign. I do not suspect any life-threatening or emergent etiologies for his symptoms. Recommend he follow-up with primary care for further evaluation. Return ED precautions discussed. Medical Records I reviewed the patient's medical records. Lab Data I reviewed the patient's lab results. 04/14/25 12:18 04/14/25 12:18 Laboratory Results WBC 7.54 10^3/uL (3.29-11.43) 04/14/25 12:18 RBC 5.17 10^6/uL (3.85-5.65) 04/14/25 12:18 Hgb 15.80 g/dL (11.27-16.99) 04/14/25 12:18 Hct 46.3 % (37-53) 04/14/25 12:18 MCV 89.6 fl (82-101) 04/14/25 12:18 MCH 30.6 pg (27-33) 04/14/25 12:18 MCHC 34.1 g/dL (30-55) 04/14/25 12:18 RDW 12.2 % (12.1-15.1) 04/14/25 12:18 Plt Count 213 10^3/cmm (157-399) 04/14/25 12:18 MPV 10.7 fL (7.4-10.4) H 04/14/25 12:18 Neut % (Auto) 64.3 % 04/14/25 12:18 Lymph % (Auto) 24.1 % 04/14/25 12:18 Sherman % (Auto) 8.0 % 04/14/25 12:18 Eos % (Auto) 2.5 % 04/14/25 12:18 Baso % (Auto) 0.8 % 04/14/25 12:18 Neut # (Auto) 4.85 10^3/uL (1.8-7.7) 04/14/25 12:18 Lymph # (Auto) 1.8 10^3/uL (0.8-4.8) 04/14/25 12:18 Sherman # (Auto) 0.6 10^3/uL (0.2-0.9) 04/14/25 12:18 Eos # (Auto) 0.2 10^3/uL (0.0-0.8) 04/14/25 12:18 Baso # (Auto) 0.1 10^3/uL (0.0-0.1) 04/14/25 12:18 Nucleated RBC % (auto) 0 % 04/14/25 12:18 Nucleated RBCs # 0.0 /100WBC 04/14/25 12:18 Sodium 144 mmol/L (136-145) 04/14/25 12:18 Potassium 4.0 mmol/L (3.5-5.1) 04/14/25 12:18 Chloride 108 mmol/L (98-107) H 04/14/25 12:18 Carbon Dioxide 26 mmol/L (22-29) 04/14/25 12:18 Anion Gap 14.0 (5-19) 04/14/25 12:18 BUN 15 mg/dL (6-20) 04/14/25 12:18 Creatinine 0.8 mg/dL (0.7-1.2) 04/14/25 12:18 GFR Calculation 111.3 mL/min (90-130) 04/14/25 12:18 Glucose 87 mg/dL (65-115) 04/14/25 12:18 Calculated Osmolality 298 mOsm/kg (285-295) H 04/14/25 12:18 Calcium 9.0 mg/dL (8.5-10.5) 04/14/25 12:18 Total Bilirubin 0.3 mg/dL (0.15-1.2) 04/14/25 12:18 AST 14 U/L (0-40) 04/14/25 12:18 ALT 20 U/L (0-41) 04/14/25 12:18 Alkaline Phosphatase 68 U/L (40-130) 04/14/25 12:18 Total Protein 6.9 g/dL (6.6-8.7) 04/14/25 12:18 Albumin 4.5 g/dL (3.5-5.2) 04/14/25 12:18 Globulin 2.4 g/dL (1.3-4.6) 04/14/25 12:18 Urine Color Yellow (Yellow) 04/14/25 13:14 Urine Appearance Clear (CLEAR) 04/14/25 13:14 Urine pH 8.5 (5-7) A 04/14/25 13:14 Ur Specific [place] 1.022 (1.005-1.030) 04/14/25 13:14 Urine Protein Negative (Negative) 04/14/25 13:14 Urine Glucose (UA) Negative (Normal) 04/14/25 13:14 Urine Ketones Negative (Negative) 04/14/25 13:14 Urine Blood Negative (Negative) 04/14/25 13:14 Urine Nitrate Negative (Negative) 04/14/25 13:14 Urine Bilirubin Negative (Negative) 04/14/25 13:14 Urine Urobilinogen 1.0 mg/dL (Negative) 04/14/25 13:14 Ur Leukocyte Esterase Negative (Negative) 04/14/25 13:14 Urine RBC 0-2 /hpf (0-2) 04/14/25 13:14 Urine WBC 0-5 /hpf (0-5) 04/14/25 13:14 Ur Squamous Epith Cells 0-5 /hpf (0-5) 04/14/25 13:14 Amorphous Sediment Not Reportable 04/14/25 13:14 Urine Bacteria None seen /hpf (NONE) 04/14/25 13:14 Hyaline Casts 0-4 /lpf H 04/14/25 13:14 No radiology studies performed this visit Discharge Plan Discharge Patient Disposition: Home Clinical Impression: Pre-syncope Condition: Stable Prescriptions: No Action No Known Home Medications Discharge Orders: Discharge ED (Routine); Ordered 04/14/25 Ordered By: Vicki Gillis Referrals: Shady Cordoba MD [Primary Care Provider, [facility]] Patient Instructions: Patient Portal & Zee Instructions Activity Restrictions/Additional Instructions: As we discussed, his emergency evaluation here was unremarkable. Recommend he follow-up with primary care regarding these episodes he has been having. He may return to the emergency department at anytime for any further concerns he may have. Print Language: Wolof Coding Level of Care Code ED Senior Stock Plan Administrator for Bj Anna
[2025-04-14 12:37] LABS: Hematocrit 46.3 % (37-53); Hemoglobin 15.80 g/dL (11.27-16.99); Mean Corpuscular HGB Conc 34.1 g/dL (30-55); Mean Corpuscular Hemoglobin 30.6 pg (27-33); Mean Corpuscular Volume 89.6 fl (82-101); Nucleated Red Blood Cells % 0 %; Platelet Count 213 10^3/cmm (157-399); Red Blood Count 5.17 10^6/uL (3.85-5.65); White Blood Count 7.54 10^3/uL (3.29-11.43)
[2025-04-14 13:00] LABS: Alanine Aminotransferase 20 U/L (0-41); Albumin Level 4.5 g/dL (3.5-5.2); Alkaline Phosphatase 68 U/L (40-130); Anion Gap 14.0 (5-19); Aspartate Amino Transferase 14 U/L (0-40); Blood Urea Nitrogen 15 mg/dL (6-20); Calcium 9.0 mg/dL (8.5-10.5); Carbon Dioxide 26 mmol/L (22-29); Chloride 108 mmol/L (98-107); Creatinine Clr Calc Pharmacy 137.9780; Globulin 2.4 g/dL (1.3-4.6); Glucose 87 mg/dL (65-115); Osmolality Calculated 298 mOsm/kg (285-295); Potassium 4.0 mmol/L (3.5-5.1); Sodium 144 mmol/L (136-145); Total Protein 6.9 g/dL (6.6-8.7)
[2025-04-14 13:08] VITALS: BP 114/84; BP 122/76; BP 125/91; PULSE 74; PULSE 83
[2025-04-14 13:21] LABS: Glucose Urine UA Negative (Normal); Nitrate Urine Negative (Negative); Specific Gravity, Urine 1.022 (1.005-1.030)
[2025-04-14 13:26] LABS: Add Urine Microscopic? YES
[2025-04-14 13:56] VITALS: BP 104/54; PULSE 77; O2SAT 96
== END 2025-04-14 13:58 | disposition home or self-care (01) ==
PROVIDERS: Emergency Medicine; Emergency Provider Physician Assistant; PCP Family Medicine
DX: R55 Syncope and collapse (principal); Z87.891 Personal history of nicotine dependence
CPT/HCPCS: 80053; 81001; 85025; 93005; 99284

== ENCOUNTER 2025-05-21 22:23 | Emergency (ER) | payer MEDICARE, MEDICAID, SELFPAY ==
--- OUTSIDE RECORDS SUMMARY | 2025-05-21 22:30 | XMS_ITS | Clinical Summary ---
Author Organization [facility] Address [address] [phone] Phone Care Team Providers Care Director Of Training Name Role Phone Unavailable Primary Care Provider [...] Encounters Date Type Department Care Team Description 04/29/2025 Telephone [facility] Family Medicine [address] [phone] Graham Oshea MD Primary Care Outreach 04/23/2025 External Device Data STL ABSTRACTION Provider, Abstract 04/23/2025 External Device Data STL ABSTRACTION Provider, Abstract 04/23/2025 External Device Data STL ABSTRACTION Provider, Abstract 04/22/2025 Telephone [facility] Urology [address] [place] [address] Provider, Abstract urology referral appointment 04/22/2025 Abstract [facility] Urology [address] [place] [address] Provider, Abstract 03/21/2025 Abstract [facility] Urology [address] [place] [phone] Provider, Abstract from Last 3 Months Family [...] on file 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
--- OUTSIDE RECORDS SUMMARY | 2025-05-21 22:30 | XMS_ITS | Clinical Summary ---
Author Organization Angélica Delvalle [facility] Address [address] [place] [address] Phone Care Team Providers Care Floriculturist Name Role Phone Unavailable Primary Care Provider [...] Comments Blood Pressure 108/72 08/20/2020 10:05 PM MONEY ROOM TELLER Pulse 90 03/03/2020 3:50 PM CDT Temperature 36.7 C (98 F) 08/20/2020 9:16 PM MONEY ROOM TELLER Respiratory Rate 18 08/20/2020 10:0 5 PM MONEY ROOM TELLER Oxygen Saturation 98% 08/20/2020 10: 05 PM MONEY ROOM TELLER Inhaled Oxygen Concentration - - Weight 76.6 kg (168 lb 12.8 oz) 08/20/2020 9:16 PM MONEY ROOM TELLER Height 165.1 cm (5' 5 ) 08/20/2020 9:16 PM MONEY ROOM TELLER Body Mass Index 28.09 08/20/2020 9:16 PM MONEY ROOM TELLER Plan of Treatment Health Maintenance Due Date Last Done Comments DTAP/TDAP/TD VACCINES (1 - Tdap) 02/18/2011 HEPATITIS B VACCINES (1 of 3 - 19+ 3-dose series) 01/2011 INFLUENZA VACCINE (#1) 2025 HPV VACCINES (No Doses Required) Completed Insurance MED[place]ID [place] MED[place] PART A AND B [facility]
[2025-05-21 22:43] VITALS: BP 120/75; PULSE 83; RESP 18; TEMP 37; O2SAT 98; BMI 33.3
--- NOTE | 2025-05-21 23:30 | ED_ITS ---
HPI - URI/Sore Throat General: Chief Complaint: Upper Respiratory Infection Stated Complaint: Cough\]Fever\Conjestion Time Seen by Provider: 05/21/25 23:24 History of Present Illness: This is a healthy 35-year-old male who presents emergency room with upper respiratory symptoms. He said congestion and cough. This been going on for about a week. He was sent here by his work. No increased work of breathing. No fevers. No chest pain. Related Data Previous Rx's ?Medication ?Instructions ?Recorded dexamethasone 6 mg tablet 6 mg PO DAILY 5 days #5 tabs 05/21/25 doxycycline hyclate 100 mg capsule 100 mg PO BID 7 day s #14 caps 05/21/25 Allergies Allergy/AdvReac Type Severity Reaction Status Date / Time No Known Allergies Allergy Verified 04/14/25 11:55 Review of Systems Narrative: Constitutional symptoms: Negative except as documented in HPI. Skin symptoms: Negative except as documented in HPI. Eye symptoms: Negative except as documented in HPI. ENMT symptoms: Negative except as documented in HPI. Respiratory symptoms: Negative except as documented in HPI. Cardiovascular symptoms: Negative except as documented in HPI. Gastrointestinal symptoms: Negative except as documented in HPI. Genitourinary symptoms: Negative except as documented in HPI. Musculoskeletal symptoms: Negative except as documented in HPI. Neurologic symptoms: Negative except as documented in HPI. Psychiatric symptoms: Negative except as documented in HPI. Endocrine symptoms: Negative except as documented in HPI. [facility] ED PFSH: Medical History (Updated 05/21/25 @ 23:31 by Annika Hernandez MD) URI (upper respiratory infection) No pertinent past medical history Surgical History No history of previous surgery Family History Family/Other Cancer stomach Social History Smoking and tobacco/nicotine status: never used tobacco/nicotine Quit status (tobacco/nicotine): has quit using Year quit tobacco: 2020 Second hand smoke exposure: No Alcohol intake: current Alcohol intake frequency: few times a week Substance/Drug Use: never Marital status: Life Partner Current occupational status: unemployed Physical Exam Narrative: EXAM NARRATIVE: General: Alert, no acute distress. Skin: Warm, dry. Head: Normocephalic, atraumatic. Neck: Supple, trachea midline. Eye: Extraocular movements are intact. Ears, nose, mouth and throat: mucosa moist. Cardiovascular: Regular, Normal peripheral perfusion. Respiratory: Lungs are clear to auscultation, respirations are non-labored, breath sounds are equal, Symmetrical chest wall expansion. Frequent cough and nasal congestion Gastrointestinal: Soft, Nontender, Non distended Musculoskeletal: Normal ROM, no deformity. Neurological: Alert and oriented, No focal neurological deficit observed. Psychiatric: Cooperative, appropriate mood & affect. Course Vital Signs: Vital signs: Vital Signs Temperature 98.6 F 05/21/25 22:43 Pulse Rate 90 05/21/25 23:39 Respiratory Rate 18 05/21/25 22:43 Blood Pressure 114/66 05/21/25 23:39 Pulse Oximetry 95 05/21/25 23:39 Oxygen Delivery Me thod Room Air 05/21/25 23:37 MDM - URI/Sore Throat Medical Decision Making Medical decision making Patient's reason for coming to the emergency room: Upper respiratory infection Social determinants: Patient is employed I reviewed the patient's medical record. Patient's last visit to the emergency room was back in April for a near syncopal episode and in March for testicular pain I reviewed the patient's current home meds No chronic home medications Alternate historians: None Differential diagnosis: including but not limited to and based on the above HPI, review of systems and physical exam: Patient has an upper respiratory infection. This been going on for few days. I am going to treat him with antibiotics and steroids. Orders placed to evaluate differential diagnosis based on the above differential, HPI and physical exam. No imaging or lab work indicated today. Assessment and plan: Upper respiratory infection - Discharged home - Discussed plan with patient. Answered any questions. - Evaluation and treatment of this problem were appropriate in the emergency setting. No radiology studies performed this visit Discharge Plan Discharge Patient Disposition: Home Clinical Impression: Upper respiratory infection Condition: Stable Prescriptions: New doxycycline hyclate 100 mg capsule 100 mg PO BID 7 Days Qty: 14 0RF dexamethasone 6 mg tablet 6 mg PO DAILY 5 Days Qty: 5 0RF Discharge Orders: Discharge ED (Routine); Ordered 05/21/25 Ordered By: Annika Hernandez Referrals: Shady Cordoba MD [Primary Care Provider, Family Practice] Discharge Diet: Usual diet Discharge Activity: Increase activity as tolerated Patient Instructions: Acute Bronchitis (ED), Opioid Safety, Pain Management, Patient Portal & Zee Instructions Activity Restrictions/Additional Instructions: Thank you for choosing [facility] for your healthcare needs today. You have been screened and evaluated and felt safe for discharge. Health conditions do change or evolve sometimes and as such it is important that you follow up with your Primary Doctor to be re checked, 3-5 days is a general good time frame for follow up. You are always welcome to return to the ED for re assessment if your symptoms are worsening or you have new concerns Print Language: Ivorian Coding Level of Care Code ED Payroll Officer for Bj Anna
[2025-05-21 23:37] VITALS: BP 118/67; PULSE 98; O2SAT 96
[2025-05-21 23:39] VITALS: BP 114/66; PULSE 90; O2SAT 95
== END 2025-05-22 00:06 | disposition home or self-care (01) ==
PROVIDERS: Emergency Provider Emergency Medicine; PCP Family Medicine
DX: J06.9 Acute upper respiratory infection, unspecified (principal); Z87.891 Personal history of nicotine dependence
CPT/HCPCS: 99283; J8540; J9999

== ENCOUNTER 2025-06-02 02:30 | Emergency (ER) | payer MEDICARE, MEDICAID, SELFPAY ==
[2025-06-02 02:33] VITALS: BP 127/84; PULSE 74; RESP 18; TEMP 36.6; O2SAT 97; BMI 34.7
--- OUTSIDE RECORDS SUMMARY | 2025-06-02 02:39 | XMS_ITS | Clinical Summary ---
Author Organization [facility] Address [address] [phone] Phone Care Team Providers Care Manager Therapy Name Role Phone Unavailable Primary Care Provider [...] Encounters Date Type Department Care Team Description 05/29/[address] [phone] Provider, Abstract 04/29/2025 Telephone [facility] Medicine [place] [address] [phone] Graham Oshea MD Primary Care Outreach 04/23/2025 External Device Data STL ABSTRACTION Provider, Abstract 04/23/2025 External Device Data STL ABSTRACTION Provider, Abstract 04/23/2025 External Device Data STL ABSTRACTION Provider, Abstract 04/22/[address] [phone] Provider, Abstract urology referral appointment 04/22/[address] [phone] Provider, Abstract 03/21/2025 Abstract [facility] [place] [address] [place] [phone] Provider, Abstract from Last 3 Months Family [...] on file 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 [id number]
--- OUTSIDE RECORDS SUMMARY | 2025-06-02 02:39 | XMS_ITS | Encounter Summary ---
Author Organization [facility] Address [address] [place] [address] Care Team Providers Care Silhouette Artist Name Role Phone Unavailable Primary Care Provider Unavailabl e Encounter Details Date Type Department Care Team (Late st Contact Info) Description 05/29/2025 Abstract [facility] [address] [place] [id number] Provider, Abstract NO ADDRESS ON FILE Social History Tobacco Use Types Packs/Day Years Used Date Smoking Tobacco: Former Smokeless Tobacco: Former Alcohol Use Standard Drinks/Week Comments Not Currently 4 (1 standard drink = 0.6 oz pur e alcohol) Sex and Gender Information Value Date Recorded Sex Assigned at Not on file 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
--- OUTSIDE RECORDS SUMMARY | 2025-06-02 02:39 | XMS_ITS | Clinical Summary ---
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 Pulse 90 03/03/2020 3:50 PM CDT Temperature 36.7 C (98 F) 08/20/2020 9:16 PM GUNITE NOZZLE OPERATOR Respiratory Rate 18 08/20/2020 10:0 5 PM GUNITE NOZZLE OPERATOR Oxygen Saturation 98% 08/20/2020 10: 05 PM GUNITE NOZZLE OPERATOR Inhaled Oxygen Concentration - - Weight 76.6 kg (168 lb 12.8 oz) 08/20/2020 9:16 PM GUNITE NOZZLE OPERATOR Height 165.1 cm (5' 5 ) 08/20/2020 9:16 PM GUNITE NOZZLE OPERATOR Body Mass Index 28.09 08/20/2020 9:16 PM GUNITE NOZZLE OPERATOR Plan of Treatment Health Maintenance Due Date Last Done Comments DTAP/TDAP/TD VACCINES (1 - Tdap) 02/18/2011 HEPATITIS B VACCINES (1 of 3 - 19+ 3-dose series) 01/2011 INFLUENZA VACCINE (#1) 2025 HPV VACCINES (No Doses Required) Completed Insurance MEDICAID [place] PART A AND B [facility]
--- OUTSIDE RECORDS SUMMARY | 2025-06-02 02:39 | XMS_ITS | Encounter Summary ---
Author Organization [facility] Address [address] [place] [address] Care Team Providers Care Pharmacy Data Analyst Name Role Phone Unavailable Primary Care Provider Unavailabl e Reason for Visit * Reason Onset Date Comments urology referral appointment 04/22/2025 Encounter Details Date Type Department Care Team (Late st Contact Info) Description 04/22/2025 Telephone [facility] [address] [place] [address] Provider, Abstract NO ADDRESS ON FILE urology referral appointment Social History Tobacco Use Types Packs/Day Years Used Date Smoking Tobacco: Former Smokeless Tobacco: Former Alcohol Use Standard Drinks/Week Comments Not Currently 4 (1 standard drink = 0.6 oz pur e alcohol) Sex and Gender Information Value Date Recorded Sex Assigned at Not on file Legal 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 Gender Identity Not on file Sexual Orientation Not on file documented as of this encounter Miscellaneous Notes * Telephone Encounter - Rosina Enamorado - 05/29/2025 9:56 AM CST I left a voicemail for the patient to return a call to the office for new pt george images have been powershared 2nd call DEVELOPER * Telephone Encounter - Rosina Enamorado - 04/22/2025 2:40 PM CST I left a voicemail for the patient to return a call to the office for new pt george images have been powershared DEVELOPER documented in this encounter Plan of Treatment Not on file documented as of this encounter Visit Diagnoses Not on filedocumented in this encounter
--- NOTE | 2025-06-02 02:49 | CTR_ITS ---
PROCEDURE INFORMATION: Exam: CT Abdomen And Pelvis With Contrast Exam date and time: 06/02/2025 2:59 AM Age: 35 years old Clinical indication: Abdominal pain; Localized; Left lower quadrant (llq); Prior surgery; Surgery date: 6+ months; Surgery type: Appy; Llq pain with constipation; Additional info: Constipation, now worsening suprapubic/llq pain TECHNIQUE: Imaging protocol: Computed tomography of the abdomen and pelvis with contrast. Radiation optimization: All CT scans at this facility use at least one of these dose optimization techniques: automated exposure control; mA and/or kV adjustment per patient size (includes targeted exams where dose is matched to clinical indication); or iterative reconstruction. Contrast material: OMNI 350; Contrast volume: 100 ml; Contrast route: INTRAVENOUS (IV); COMPARISON: CT abdomen pelvis w con* [id number] 11/19/2024 4:51 PM RADIATION DOSE METRICS: Total DLP (mGy-cm): 794.4 FINDINGS: Liver: Hepatic steatosis. Gallbladder and biliary ducts: Normal. No calcified stones. No ductal dilation. Pancreas: Normal. No ductal dilation. Spleen: Normal. No splenomegaly. Adrenal glands: Normal. No mass. Kidneys and ureters: Normal. No hydronephrosis. Stomach and bowel: Moderate wall thickening of the ascending, transverse, and descending colon, concerning for acute on chronic colitis (submucosal fatty infiltration indicates sequelae of previous colitis). Appendix: No evidence of appendicitis. Intraperitoneal space: Unremarkable. No free air. No significant fluid collection. Vasculature: Unremarkable. No abdominal aortic aneurysm. Lymph nodes: Unremarkable. No enlarged lymph nodes. Urinary bladder: Unremarkable as visualized. Reproductive: Unremarkable as visualized. Bones/joints: Unremarkable. No acute fracture. Soft tissues: Unremarkable. CT/CT abdomen pelvis w con* [id number] IMPRESSION: Moderate wall thickening of the ascending, transverse, and descending colon, concerning for acute on chronic colitis (submucosal fatty infiltration indicates sequelae of previous colitis).
--- NOTE | 2025-06-02 02:51 | ED_ITS ---
HPI - Abdominal Pain 2 General: Chief Complaint: Abdominal Pain Stated Complaint: low abd pain Time Seen by Provider: 06/02/25 02:33 History of Present Illness: Patient is a 35-year-old male with past medical history of appendectomy who presents to the ED with 2 days of abdominal pain. Patient describes it as diffuse in the lower, was there yesterday, a dull but moderate sensation, subsided and then woke him up from sleep this evening. He denies any nausea or vomiting with this. He has been rather constipated lately but did have an episode of seeming diarrhea tonight. He has had a normal appetite. He recently finished antibiotics for a bronchitis a few days ago. He has had no recent fevers, chills, diaphoresis. Denies any urinary symptoms Associated Symptoms: Denies chills and fever(s) Related Data Previous Rx's ?Medication ?Instructions ?Recorded ondansetron 4 mg disintegrating 4 mg PO TID PRN nausea and 06/02/25 tablet vomiting 5 days #10 tabs oxycodone 5 mg tablet 5 mg PO TID PRN pain #7 tabs 06/02/25 Allergies Allergy/AdvReac Type Severity Reaction Status Date / Time No Known Allergies Allergy Verified 06/02/25 02:36 Review of Systems 2 General: Reports: 10 or more systems reviewed and unremarkable except in HPI and below Const: Denies: fever(s) or chills Eyes: Denies: change in vision or eye discharge Card: Denies: chest pain, palpitations or swelling of feet/ankles Resp: Denies: dyspnea or productive cough GI: Reports: abdominal pain : Denies: difficulty urinating Musc: Denies: neck pain or back pain Skin/Breast: Denies: rash or jaundice Neuro: Denies: headache(s), numbness in extremities or weakness in extremities Deny/Lymph: Denies: easy bruising or easy bleeding PFSH ED 2 PFSH: Medical History (Updated 06/02/25 @ 03:33 by Jorge Luis Quintero DO) URI (upper respiratory infection) No pertinent past medical history Surgical History No history of previous surgery Family History Family/Other Cancer stomach Social History Smoking and tobacco/nicotine status: never used tobacco/nicotine Quit status (tobacco/nicotine): has quit using Year quit tobacco: 2019 Second hand smoke exposure: No Alcohol intake: current Alcohol intake frequency: few times a week Substance/Drug Use: never Marital status: Life Partner Current occupational status: unemployed Physical Exam 2 Narrative: EXAM NARRATIVE: Well-appearing, afebrile, vital stable on arrival, no acute distress. Abdomen soft, mild diffuse lower abdominal tenderness, worst in the suprapubic and left lower quadrant, bowel sounds decreased, no overlying skin changes, not peritonitic, no CVA tenderness. Breathing comfortably on room air, saturating well, no adventitious lung sounds, able to speak in full sentences without getting short of breath. Normal sinus rhythm with no murmurs, no leg swelling, good cap refill, 2+ pulses throughout. GCS 15. Course 2 Vital Signs: Vital signs: Vital Signs Temperature 97.8 F 06/02/25 02:33 Pulse Rate 74 06/02/25 02:33 Respiratory Rate 18 06/02/25 02:33 Blood Pressure 127/84 06/02/25 02:33 Pulse Oximetry 97 06/02/25 02:33 MDM - Abdominal Pain Medical Decision Making -ddx: Diverticulitis, constipation, SBO, cystitis, gastroenteritis, antibiotic side effect, dehydration - Patient with 2 days of diffuse lower abdominal pain, seemingly localizing on the left side, has had a previous abdominal surgery of appendectomy earlier this year, has had constipation with some seeming obstipation tonight, will get abdominal labs, CT abdomen pelvis and treat with fluids and Toradol and reassess. - Patient with reassuring laboratory studies, on his CT scan, had evidence of acute on chronic pancolitis, no seeming complications, no abscess formation, no hollow viscus injury, no obstruction. Patient's pain was almost completely resolved on exam and so he was able to be discharged in stable condition with recommendation for bland diet, multimodal pain control, given short prescription of oxycodone and Zofran as needed and to follow-up with PCP in a few days for reevaluation, discharged in stable condition with mother at bedside Lab Data 06/02/25 02:54 06/02/25 02:54 Labs/Radiology: Radiology Impressions Abdomen/Pelvis CT 06/02/25 02:49 IMPRESSION: Moderate wall thickening of the ascending, transverse, and descending colon, concerning for acute on chronic colitis (submucosal fatty infiltration indicates sequelae of previous colitis). Laboratory Results WBC 9.95 10^3/uL (3.29-11.43) 06/02/25 02:54 RBC 4.94 10^6/uL (3.85-5.65) 06/02/25 02:54 Hgb 15.10 g/dL (11.27-16.99) 06/02/25 02:54 Hct 44.8 % (37-53) 06/02/25 02:54 MCV 90.7 fl (82-101) 06/02/25 02:54 MCH 30.6 pg (27-33) 06/02/25 02:54 MCHC 33.7 g/dL (30-55) 06/02/25 02:54 RDW 11.9 % (12.1-15.1) L 06/02/25 02:54 Plt Count 198 10^3/cmm (157-399) 06/02/25 02:54 MPV 10.9 fL (7.4-10.4) H 06/02/25 02:54 Neut % (Auto) 48.1 % 06/02/25 02:54 Lymph % (Auto) 39.1 % 06/02/25 02:54 [place] % (Auto) 9.4 % 06/02/25 02:54 Eos % (Auto) 2.1 % 06/02/25 02:54 Baso % (Auto) 0.8 % 06/02/25 02:54 Neut # (Auto) 4.78 10^3/uL (1.8-7.7) 06/02/25 02:54 Lymph # (Auto) 3.9 10^3/uL (0.8-4.8) 06/02/25 02:54 [place] # (Auto) 0.9 10^3/uL (0.2-0.9) 06/02/25 02:54 Eos # (Auto) 0.2 10^3/uL (0.0-0.8) 06/02/25 02:54 Baso # (Auto) 0.1 10^3/uL (0.0-0.1) 06/02/25 02:54 Nucleated RBC % (auto) 0 % 06/02/25 02:54 Nucleated RBCs # 0.0 /100WBC 06/02/25 02:54 Sodium 142 mmol/L (136-145) 06/02/25 02:54 Potassium 4.0 mmol/L (3.5-5.1) 06/02/25 02:54 Chloride 106 mmol/L (98-107) 06/02/25 02:54 Carbon Dioxide 26 mmol/L (22-29) 06/02/25 02:54 Anion Gap 14.0 (5-19) 06/02/25 02:54 BUN 19 mg/dL (6-20) 06/02/25 02:54 Creatinine 0.8 mg/dL (0.7-1.2) 06/02/25 02:54 GFR Calculation 111.3 mL/min (90-130) 06/02/25 02:54 Glucose 86 mg/dL (65-115) 06/02/25 02:54 Calculated Osmolality 296 mOsm/kg (285-295) H 06/02/25 02:54 Calcium 9.3 mg/dL (8.5-10.5) 06/02/25 02:54 Total Bilirubin 0.3 mg/dL (0.15-1.2) 06/02/25 02:54 AST 14 U/L (0-40) 06/02/25 02:54 ALT 20 U/L (0-41) 06/02/25 02:54 Alkaline Phosphatase 65 U/L (40-130) 06/02/25 02:54 C-Reactive Protein 3.0 mg/L (0.0-4.9) 06/02/25 02:54 Total Protein 6.3 g/dL (6.6-8.7) L 06/02/25 02:54 Albumin 4.1 g/dL (3.5-5.2) 06/02/25 02:54 Globulin 2.2 g/dL (1.3-4.6) 06/02/25 02:54 Lipase 27 U/L (13-60) 06/02/25 02:54 All radiology interpretation(s) finalized by discharge Discharge Plan Discharge Patient Disposition: Home Clinical Impression: Acute on chronic colitis Condition: Stable Prescriptions: New ondansetron 4 mg tablet,disintegrating 4 mg PO TID PRN (Reason: nausea and vomiting) 5 Days Qty: 10 0RF oxycodone 5 mg tablet 5 mg PO TID PRN (Reason: pain) Qty: 7 0RF Discharge Orders: Discharge ED (Routine); Ordered 06/02/25 Ordered By: Jorge Luis Quintero Referrals: Shady Cordoba MD [Primary Care Provider, [facility]] Discharge Diet: As Directed Discharge Activity: Resume usual activity Patient Instructions: Abdominal Pain (ED), Opioid Safety, Pain Management, Patient Portal & Zee Instructions Activity Restrictions/Additional Instructions: You were seen for your abdominal pain and nausea, your evaluated with labs and a CT scan which found you to have an acute on chronic colitis, which is inflammation of your intestines, probably caused by a mix of a viral stomach bug and your recent antibiotic usage. The treatment for this is a bland diet over the next few days, including crackers, bread and avoid anything spicy and hot. Ensure you stay well-hydrated. Start taking a scoop of MiraLAX daily to help with your constipation as well. For any nausea, use the Zofran 4 mg every 8 hours as needed. For pain, alternate Tylenol 650 mg and ibuprofen 400 mg every 4 hours as needed, for breakthrough pain on top of this, use oxycodone 5 mg every 8 hours as needed, do not drive or operate heavy machinery with this medication as it can be sedating. Make a follow-up appointment with your primary care provider next week for reevaluation of your symptoms. Return to the ED with severe worsening of your pain, continuous vomiting, inability to eat or drink, any other emergent concerns. 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
[2025-06-02 03:06] LABS: Hematocrit 44.8 % (37-53); Hemoglobin 15.10 g/dL (11.27-16.99); Mean Corpuscular HGB Conc 33.7 g/dL (30-55); Mean Corpuscular Hemoglobin 30.6 pg (27-33); Mean Corpuscular Volume 90.7 fl (82-101); Nucleated Red Blood Cells % 0 %; Platelet Count 198 10^3/cmm (157-399); Red Blood Count 4.94 10^6/uL (3.85-5.65); White Blood Count 9.95 10^3/uL (3.29-11.43)
[2025-06-02] MEDS: iohexol 350 mg/mL 500 mL Btl (per mL) IV (03:09)
[2025-06-02 03:20] LABS: Alanine Aminotransferase 20 U/L (0-41); Albumin Level 4.1 g/dL (3.5-5.2); Alkaline Phosphatase 65 U/L (40-130); Anion Gap 14.0 (5-19); Aspartate Amino Transferase 14 U/L (0-40); Blood Urea Nitrogen 19 mg/dL (6-20); Calcium 9.3 mg/dL (8.5-10.5); Carbon Dioxide 26 mmol/L (22-29); Chloride 106 mmol/L (98-107); Globulin 2.2 g/dL (1.3-4.6); Glucose 86 mg/dL (65-115); Lipase 27 U/L (13-60); Osmolality Calculated 296 mOsm/kg (285-295); Potassium 4.0 mmol/L (3.5-5.1); Sodium 142 mmol/L (136-145); Total Protein 6.3 g/dL (6.6-8.7)
== END 2025-06-02 03:43 | disposition home or self-care (01) ==
PROVIDERS: Emergency Provider Student in an Organized Health Care Education/Training Program; PCP Family Medicine
DX: K52.89 Other specified noninfective gastroenteritis and colitis (principal); Z87.891 Personal history of nicotine dependence
CPT/HCPCS: 36415; 74177; 80053; 83690; 85025; 86140; 96361; 96374; 99285; J1885; J7030